=== PATIENT | female | born 1935 | race African-American/Black ===

== ENCOUNTER 2022-01-22 19:48 | Inpatient (IN) | payer MEDICARE, MEDICAID, SELFPAY ==
--- NOTE | ~2022-01-22 | CT_ITS ---
EXAMINATION: CT cervical spine wo con DATE: 01/22/2022 21:21 INDICATION: Neck pain after fall TECHNIQUE: Computed tomography (CT) of the cervical spine was performed without intravenous contrast. The dose-length product was 262 mGy-cm. Automated exposure control and iterative reconstruction tech [employer]igan[employer] were employed. COMPARISON: None FINDINGS: There is multilevel degenerative disc disease most advanced at C3-4 and C4-5. Odontoid proc ess is normal. Lateral masses are normally aligned. There is moderate uncinate hypertrophy at all cer vical spine levels. No evidence for perched facet. Craniovertebral junction is normal. Spinous proces ses are normal. There is emphysema in the upper lobes. There is an irregular shaped mass in the left upper lobe measuring 2.1 x 2.1 x 1.3 cm. Cannot exclude bronchogenic carcinoma. No significant parasp inal soft tissue abnormality. IMPRESSION: 1. No acute fracture. 2: Irregular shaped 2.1 cm left upper lobe mass, suspicious for bronchogenic carcinoma. 3: Moderate cervical spondylosis. Reviewed, dictated and finalized at location A. T INSPECTOR IMPRESSION: 1. No acute fracture. 2: Irregular shaped 2.1 cm left upper lobe mass, suspicious for bronchogenic ca rcinoma. 3: Moderate cervical spondylosis.
--- NOTE | ~2022-01-22 | XR_ITS ---
EXAMINATION: XR chest 1V portable DATE: 01/27/2022 06:18 INDICATION: Intubation TECHNIQUE: frontal view of the chest was obtained. COMPARISON: Chest radiograph dated 01/26/22 FINDINGS: Endotracheal tube tip 2.2 cm above the zaida. Nasogastric tube extends below the left hemidiaphragm with distal tip collimated off the study. Opacities in the bilateral mid and lower lung zones with prominent but with decrease in the density o f the opacities on the right. Opacities include small bilateral pleural effusions. No pneumothorax. C ardiomegaly. IMPRESSION: 1. Small bilateral pleural effusions with associated atelectasis and/or pneumonia in the bilateral mi d to lower lung zones, unchanged on the left and more prominent but with interval improvement on the right. Reviewed, dictated and finalized at location A. MANAGER IMPRESSION: 1. Small bilateral pleural effusions with associated atelectasis and/or pneumon ia in the bilateral mid to lower lung zones, unchanged on the left and more pro minent but with interval improvement on the right.
--- NOTE | ~2022-01-22 | XR_ITS ---
EXAMINATION: XR chest 1V portable INDICATION: Respiratory failure TECHNIQUE: Portable AP chest at 0535 hours COMPARISON: 01/27/2022 FINDINGS: The endotracheal tube ends approximately 1.3 cm above the zaida. The nasogastric tube is f ollowed as far as the stomach. Its tip is beyond the inferior margin of the radiograph. There are sma ll, stable pleural effusions. No pneumothorax is identified. The cardiomediastinal silhouette is stab le. There are stable bibasilar airspace opacities. IMPRESSION: 1. Small pleural effusions with stable bibasilar airspace opacities, atelectasis versus pneumonia. Reviewed, dictated and finalized at location A. ET STEAMER IMPRESSION: 1. Small pleural effusions with stable bibasilar airspace opacities, atelectasi s versus pneumonia.
--- NOTE | ~2022-01-22 | XR_ITS ---
EXAMINATION: XR chest 1V portable Exam Date/Time: 01/24/2022 15:37 WINDOW AND DOOR INSTALLER HISTORY: hypoxic Comparison: 01/22/2022. RESULT: Lines, tubes, and devices: Cholecystectomy clips. Lungs and pleura: New airspace opacities in the right upper lobe. Persistent bibasilar subsegmental opacities and mild right costophrenic angle blunting. Cardiomediastinal silhouette: Stable. Other: No acute osseous or upper abdominal finding. IMPRESSION: Worsening airspace disease in the right upper lobe, concerning for pneumonia. Bibasilar atelectasis/c onsolidation. Small right pleural effusion. Reviewed, dictated and finalized at location K. OW AND DOOR INSTALLER IMPRESSION: Worsening airspace disease in the right upper lobe, concerning for pneumonia. B ibasilar atelectasis/consolidation. Small right pleural effusion.
--- NOTE | ~2022-01-22 | XR_ITS ---
EXAMINATION: XR chest 1V portable DATE: 02/01/2022 06:36 INDICATION: Pneumonia. TECHNIQUE: A single frontal view of the chest was obtained. COMPARISON: Chest single view 01/31/2022, chest CT 01/31/2022 FINDINGS: There is a small right pleural effusion. There are patchy airspace opacities in all lung zo maddie bilaterally, worst in right mid and lower lung zones. No pneumothorax. Cardiomegaly is noted. The re are surgical clips in the abdomen. There is oral contrast in the colon. IMPRESSION: 1. Stable multifocal lung disease, consistent with pneumonia. 2. Stable small right pleural effusion. 3. Cardiomegaly. Reviewed, dictated and finalized at location A. IAL EDUCATION MATH TEACHER
--- NOTE | ~2022-01-22 | XR_ITS ---
EXAMINATION: XR chest 1V portable DATE: 01/29/2022 06:10 INDICATION: Pneumonia TECHNIQUE: frontal view of the chest was obtained. COMPARISON: Chest radiograph dated 01/28/2022 FINDINGS: Endotracheal tube tip 2.1 cm above the zaida. Nasogastric tube extends below the left hemidiaphragm with distal tip collimated off the study. Airspace opacities throughout the right mid and lower lung zones with blunting at the right costophre sully angle. Additional opacity left lower lung zone. No pneumothorax or definitive left pleural effusi on. Cardiomegaly. Cholecystectomy clips in right upper quadrant. IMPRESSION: 1. Opacities in the right mid to lower and left lower lung zones which could represent atelectasis or pneumonia. 2. Small right pleural effusion. 3. Cardiomegaly. Reviewed, dictated and finalized at location A. ABUSE COUNSELOR IMPRESSION: 1. Opacities in the right mid to lower and left lower lung zones which could re present atelectasis or pneumonia. 2. Small right pleural effusion. 3. Cardiomegaly.
--- NOTE | ~2022-01-22 | XR_ITS ---
EXAMINATION: XR chest ET placement, XR abdomen NG/feed tube insert Exam Date/Time: 01/24/2022 18:10 CHEMIST INSTRUMENTATION HISTORY: intubation Comparison: X-ray chest, same date at 3:45 PM. RESULT: Lines, tubes, and devices: New endotracheal tube terminating 2.6 cm above the zaida. New NG tube, t ip and side port project over the expected location of the stomach. Cholecystectomy clips. Lungs and pleura: Improved aeration of the right upper lung. Persistent streaky bibasilar opacities, bibasilar aeration is also improved. Diffuse reticular opacities. Persistent mild right costophrenic angle blunting. Cardiomediastinal silhouette: Stable. Other: No acute osseous or upper abdominal finding. Retained contrast in the colon. IMPRESSION: New NG tube terminating 2.6 cm above the zaida. New NG tube, in good position. Generally improved bela ng aeration, right upper lobe opacities in the prior study likely represented atelectasis. Senescent changes in the lungs with possible interstitial edema. Small right pleural effusion. Reviewed, dictated and finalized at location K. IST INSTRUMENTATION IMPRESSION: New NG tube terminating 2.6 cm above the zaida. New NG tube, in good position. Generally improved lung aeration, right upper lobe opacities in the prior stud y likely represented atelectasis. Senescent changes in the lungs with possible interstitial edema. Small right pleural effusion.
--- NOTE | ~2022-01-22 | XR_ITS ---
EXAMINATION: XR chest 1V portable DATE: 01/30/2022 06:23 INDICATION: Pneumonia TECHNIQUE: frontal view of the chest was obtained. COMPARISON: Chest radiograph dated 01/29/2022 FINDINGS: Decreasing airspace opacities in the right mid to lower and left lower lung zones. No pneumothorax or definitive pleural effusion. Cardiomegaly. Cholecystectomy clips in right upper quadrant. IMPRESSION: 1. Decreasing opacities in the right mid to lower and left lower lung zones consistent with improving atelectasis, or pneumonia, pulmonary edema or some combination thereof. 2. Cardiomegaly. Reviewed, dictated and finalized at location A. ING BUCKING SUPERVISOR IMPRESSION: 1. Decreasing opacities in the right mid to lower and left lower lung zones con sistent with improving atelectasis, or pneumonia, pulmonary edema or some combi nation thereof. 2. Cardiomegaly.
--- NOTE | ~2022-01-22 | CT_ITS ---
EXAMINATION:CT diagnostic chest wo con DATE: 01/31/2022 14:30 INDICATION: Left lung mass. TECHNIQUE: Computed tomography (CT) of the chest was performed without intravenous contrast. Automate d exposure control and iterative reconstruction technique were employed. The dose-length product (DLP ) was 371.42 mGy-cm. COMPARISON: CT cervical spine 01/22/2022 FINDINGS: There is mild emphysema. There are small pleural effusions, right worse than left. There is dependent atelectasis bilaterally. There are patchy airspace and groundglass opacities in the upper lobes. There is an 11 mm nodule in left lower lobe. Cardiomegaly is noted. There are coronary artery calcifications. No pericardial effusion. There are changes of cholecystectomy. Calcifications in the spleen are consistent with old granulomatous disease. There is lumbar levoscoliosis and severe spondy losis. There is a segmentation anomaly in mid thoracic spine. IMPRESSION: 1. Patchy airspace and groundglass opacities in the upper lobes, likely pneumonia. 2. 11 mm nodule in left lung lower lobe, which may be infection or malignancy. Consider noncontrast c hest CT in 3 months. 3. Small pleural effusions, right worse than left. 4. Mild emphysema. Reviewed, dictated and finalized at location A. CULTURIST IMPRESSION: 1. Patchy airspace and groundglass opacities in the upper lobes, likely pneumon ia. 2. 11 mm nodule in left lung lower lobe, which may be infection or malignancy. Consider noncontrast chest CT in 3 months. 3. Small pleural effusions, right worse than left. 4. Mild emphysema.
--- NOTE | ~2022-01-22 | US_ITS ---
US renal BI 01/25/2022 13:29 Procedure: Realtime transabdominal ultrasound of the kidneys and bladder. Indication: Elevated creatinine Comparison: No prior studies for comparison. Findings: Study is extremely limited by patient immobility and body habitus. The left kidney is not v isualized. There is a 1.8 cm right renal cyst. No solid masses, hydronephrosis or stones. Right kidne y measures 9.4 cm in length. There is a [place] catheter in the bladder. Impression: 1: Limited study. Right renal cyst measuring 1.8 cm. Reviewed, dictated and finalized at location A. ENT SERVICES DEAN Impression: 1: Limited study. Right renal cyst measuring 1.8 cm.
--- NOTE | ~2022-01-22 | XR_ITS ---
MODIFIED ESOPHAGRAM HISTORY: Aspiration pneumonia. Failed bedside swallow study. TECHNIQUE: Modified barium esophagram was performed on 01/30/2022. I administered fluoroscopy and per formed the exam with speech pathologist. Patient was seated for lateral fluoroscopic imaging for ing estion of thin liquids, pudding, solids and quantified amounts, followed by thin liquids in uncontrol led amounts. This was recorded on tape. A single fluoroscopic spot image was also recorded. The DAP f or this procedure was 6.029 Gycm2. The amount of fluoroscopy time used during this procedure was 5.8 minutes. FINDINGS: Oral stage: Adequate function. Pharyngeal stage: Reduced laryngeal elevation and adduction, reduced tongue base retraction and phary ngeal squeeze. There is vallecular residue with laryngeal penetration without aspiration with thin an d mildly thickened liquids. Cervical/esophageal stage: Adequate function. IMPRESSION: Pharyngeal dysphagia with laryngeal penetration without aspiration. Please correlate wit h speech pathologist findings and specific feeding recommendations. Reviewed, dictated and finalized at location A. ET CUTTER IMPRESSION: Pharyngeal dysphagia with laryngeal penetration without aspiration. Please correlate with speech pathologist findings and specific feeding recomm endations.
--- NOTE | ~2022-01-22 | US_ITS ---
EXAMINATION:US venous doppler LE BI INDICATION:Leg swelling TECHNIQUE: Multiple grayscale, color flow and Doppler images of the right and left lower extremity de ep venous systems were obtained and reviewed. COMPARISON:No prior studies for comparison. FINDINGS: The common femoral, superficial femoral and popliteal veins demonstrate normal respiratory variation, augmentation and compressibility. Color flow is also seen within the posterior tibial, pe roneal, greater saphenous and profunda veins. IMPRESSION: 1: No lower extremity deep venous thrombosis. Reviewed, dictated and finalized at location A. DATA PLATFORM ARCHITECT
--- NOTE | ~2022-01-22 | CT_ITS ---
EXAMINATION: CT brain wo con DATE: 01/22/2022 21:21 INDICATION: Status post fall. Head injury. TECHNIQUE: Computed tomography (CT) of the head was performed without intravenous contrast. The dose- length product was 681.00 mGy-cm. Automated exposure control and iterative reconstruction technique w ere employed. COMPARISON: None FINDINGS: Generalized atrophy. There are scattered moderate periventricular and subcortical white mat ter changes, most likely related to small vessel ischemic disease (microangiopathy). There is left po sterior parietal scalp hematoma. No acute intracranial hemorrhage, infarction, mass or mass effect. T here is intracranial atherosclerosis. There is mucosal thickening of the right maxillary sinus. There are changes of lens replacement surgery bilaterally. Small left mastoid effusion. No depressed skull fractures. IMPRESSION: 1. No acute intracranial abnormality. 2: Chronic age-related findings. Reviewed, dictated and finalized at location A. GATOR OVERHEAD
--- NOTE | ~2022-01-22 | XR_ITS ---
EXAMINATION: XR chest 1V portable DATE: 01/31/2022 06:33 INDICATION: Pneumonia. TECHNIQUE: A single frontal view of the chest was obtained. COMPARISON: Chest single view 01/30/2022 FINDINGS: There is a diffuse interstitial pattern in the lungs, consistent mild pulmonary edema. No p leural effusion or pneumothorax. Cardiomegaly is noted. Surgical clips in the right upper quadrant ar e likely from cholecystectomy. IMPRESSION: 1. Mild pulmonary edema. 2. Cardiomegaly. Reviewed, dictated and finalized at location A. LIANCE CONSULTANT
--- NOTE | ~2022-01-22 | XR_ITS ---
EXAMINATION: XR chest 1V portable INDICATION: Respiratory failure TECHNIQUE: Portable AP chest at 0520 hours COMPARISON: 01/25/2022 FINDINGS: The endotracheal tube ends approximately 2.7 cm above the zaida. The nasogastric tube is f ollowed as far as the stomach. Its tip is beyond the inferior margin of the radiograph. Cardiomegaly is noted. There are small pleural effusions. Diffuse lung disease persists with worsening opacities o f the right mid and lower lung zones. IMPRESSION: 1. Diffuse lung disease with worsening opacities of the right mid and lower lung zones, consistent wi th pneumonia and/or pulmonary edema. 2. Cardiomegaly. 3. Small pleural effusions. Reviewed, dictated and finalized at location A. ERATURE REGULATOR IMPRESSION: 1. Diffuse lung disease with worsening opacities of the right mid and lower philippe g zones, consistent with pneumonia and/or pulmonary edema. 2. Cardiomegaly. 3. Small pleural effusions.
--- NOTE | ~2022-01-22 | XR_ITS ---
XR pelvis 1-2V 01/22/2022 21:40 Indication: Status post fall. Pelvic pain. Procedure: AP pelvis Comparison: No prior studies for comparison. Findings: Pelvic rings are intact. There is osteoarthritis of the hips. Extensive atherosclerosis of the pelvis. No acute fracture or traumatic malalignment. Impression: 1: No acute fracture. Reviewed, dictated and finalized at location A. LEMENTAL MANAGER Impression: 1: No acute fracture.
--- NOTE | ~2022-01-22 | XR_ITS ---
XR chest 1V 01/22/2022 21:40 Indication: Status post fall. Chest pain. Procedure: AP view of the chest Comparison: No prior studies for comparison. Findings: Right basilar airspace disease. Cardiomegaly. There is atherosclerosis of the aorta. Small right pleural effusion. No pneumothorax. No acute osseous abnormality identified. There is scoliosis. Impression: 1: Right basilar airspace disease suspicious for pneumonia. 2: Small right pleural effusion. Reviewed, dictated and finalized at location A. ER CRUSHER OPERATOR Impression: 1: Right basilar airspace disease suspicious for pneumonia. 2: Small right pleural effusion.
--- NOTE | ~2022-01-22 | XR_ITS ---
XR chest 1V portable DATE: 01/25/2022 08:12 INDICATION: Acute respiratory failure, pneumonia TECHNIQUE: Portable AP view on 01/25/2022 at 0808 hours COMPARISON: 01/2022 portable AP chest at 1822 hours FINDINGS: ET tube in satisfactory position 2.3 cm above zaida. NG tube in stomach. No central lines. Cardiomegaly. Aortic arch calcification. Mild pulmonary vascular congestion, prominence of minor fissure consistent with subpleural edema and bilateral relatively central and lower lung zone infiltrates which may be due to pulmonary edema, pne umonia and/or aspiration pneumonitis. Diffuse osteopenia. IMPRESSION: Cardiomegaly, congestive changes, bilateral infiltrates, relatively stable since 01/2022 Reviewed, dictated and finalized at location B. CTOR EMPLOYMENT
[2022-01-22 19:49] VITALS: BP 138/62; PULSE 83; RESP 14; TEMP 36.5; O2SAT 93
--- NOTE | 2022-01-22 20:58 | ED.FALL ---
HPI - Fall General Chief Complaint: Fall <Ashwini Escobar PA-C - Last Filed: 01/24/22 17:09> Stated Complaint: fall <Ashwini Escobar PA-C - Last Filed: 01/24/22 17:09> Time Seen by Provider: 01/22/22 20:44 <Ashwini Escobar PA-C - Last Filed: 01/24/22 17:09> Source: patient and family <ABNER Brown Last Filed: 01/24/22 17:09> Mode of arrival: wheelchair <ABNER Brown Last Filed: 01/24/22 17:09> Limitations: dementia <Ashwini Escobar PA-C - Last Filed: 01/24/22 17:09> History of Present Illness HPI Narrative: This is an 86-year-old female that presents to the emergency department after a ground-level fall today with head injury. Patient lives at a memory care facility. Her daughter reports she fell around 3:45 this afternoon. Reportedly she had fallen in the bathroom and pulled her call light. The patient reports that she slipped. She did hit her head. She denied losing consciousness. She reports mild pain in the area of contusion to her head. She otherwise has no focal complaints. Her daughter reports she is at her baseline neurologically. Her daughter brought her in for evaluation due to her hitting her head. Patient denies vision changes, vomiting, chest pain, shortness of breath, abdominal pain, or focal numbness or weakness. <Ashwini Escobar PA-C - Last Filed: 01/24/22 17:09> Related Data Home Medications: Home Medications Medication Instructions Recorded Confirmed budesonide-formoterol HFA 160 2 puff inhalation BID 01/22/22 01/24/22 mcg-4.5 mcg/actuation aerosol inhaler (Symbicort) cholecalciferol (vitamin D3) 25 25 mcg PO DAILY 01/22/22 01/24/22 mcg (1,000 unit) tablet dextromethorphan-guaifenesin 30 1 tablet PO Q12H PRN Cough 01/22/22 01/24/22 mg-600 mg tablet extended [id number] hr (Mucinex DM) furosemide 20 mg tablet 20 mg PO DAILY 01/22/22 01/24/22 hydralazine 25 mg tablet 75 mg PO TID 01/22/22 01/24/22 insulin detemir U-100 100 unit/mL 5 unit subcut HS 01/22/22 01/24/22 (3 mL) subcutaneous pen (Levemir FlexTouch U-100 Insulin) ipratropium 0.5 mg-albuterol 3 mg 3 ml inhalation QID PRN shortness 01/22/22 01/24/22 (2.5 mg base)/3 mL nebulization of breath soln ondansetron 4 mg disintegrating 4 mg PO Q8H PRN Nausea 01/22/22 01/24/22 tablet pantoprazole 40 mg tablet,delayed 40 mg PO DAILY 01/22/22 01/24/22 release polyethylene glycol 3350 17 17 g PO DAILY 01/22/22 01/24/22 gram/dose oral powder potassium chloride 20 mEq 20 meq PO DAILY 01/22/22 01/24/22 tablet,extended release(part/cryst) <Ashwini Ecsobar PA-C - Last Filed: 01/24/22 17:09> Allergies/Adverse Reactions: Allergies Allergy/AdvReac Type Severity Reaction Status Date / Time No Known Allergies Allergy Verified 01/23/22 14:58 <Ashwini Escobar PA-C - Last Filed: 01/24/22 17:09> Review of Systems Review of Systems: CONSTITUTIONAL: Denies fever EYES: Denies visual changes CARDIOVASCULAR: Denies chest pain RESPIRATORY: Denies dyspnea. GASTROINTESTINAL: Denies abdominal pain, nausea, vomiting MUSCULOSKELETAL: Denies back pain, joint pain, or myalgia. NEUROLOGIC: Reports headache. Denies numbness, or weakness. <Ashwini Escobar PA-C - Last Filed: 01/24/22 17:09> All systems reviewed & are unremarkable except as noted in HPI and below <Ashwini Escobar PA-C - Last Filed: 01/24/22 17:09> [facility] Past Medical History Medical History: Medical History (Updated 01/24/22 @ 15:40 by Ally Jordan NP) Chronic GERD DM2 (diabetes mellitus, type 2) History of diabetes mellitus History of hypertension Hypertension <Ashwini Escobar PA-C - Last Filed: 01/24/22 17:09> Family History Family History: Family History (Updated 01/24/22 @ 15:11 by Ally Jordan NP) Unknown Family history unknown <Ashwini Escobar PA-C - Last Filed: 01/24/22 17:09> Social History Social History: Social History (Updated 12
[2022-01-22 22:17] LABS: Basophils Percent Auto 0.4 % (0.2-1.2); Eosinophils Absolute Auto 0.1 K/mm3 (0-0.3); Eosinophils Percent Auto 1.5 % (0-4.4); Hematocrit 21.9 % (37.0-47.0); Immature Granulocyte Absolute 0.03 K/mm3 (0.00-0.031); Immature Granulocyte Percent A 0.6 % (0-0.5); Lymphocytes Absolute Auto 0.56 K/mm3 (0.9-3.2); Lymphocytes Percent Auto 11.8 % (18.3-44.2); Mean Corpuscular HGB Conc 31.5 g/dl (32-36); Mean Corpuscular Hemoglobin 23.2 pg (26-34); Mean Corpuscular Volume 73.5 fl (80-100); Mean Platelet Volume 10.7 fl (7.4-10.4); Monocytes Absolute Auto 0.3 K/mm3 (0.1-0.6); Monocytes Percent Auto 5.7 % (2.6-8.5); Neutrophils Absolute Auto 3.8 K/mm3 (1.3-6.7); Platelet Count Result 199 k/mm3 (150-375); Red Blood Count 2.98 M/mm3 (4.2-5.4); Red Cell Distribution Width 17.4 % (11.5-14.5); White Blood Count 4.8 K/mm3 (4.5-10.0)
[2022-01-22 22:27] LABS: Anion Gap 7 mmol/L (8-16); Blood Urea Nitrogen 40 mg/dL (7-17); Calcium 8.2 mg/dL (8.4-10.2); Carbon Dioxide 25 mmol/L (22-30); Chloride 111 mmol/L (98-107); Estimated CRCL calculation 15 ml/min; Estimated Glomerular Filt Rate 22; Glucose 177 mg/dL (65-110); Potassium 5.5 mmol/L (3.4-5.0); Sodium 143 mmol/L (137-145)
[2022-01-22 22:38] LABS: Hemoglobin 6.9 g/dL (12.0-15.0); Microcytosis 2+ (NORMAL); Platelet Estimate Adequate (Adequate)
[2022-01-22 22:39] LABS: Hypochromasia 2+ (NORMAL)
[2022-01-22 23:01] LABS: Alanine Aminotransferase 25 U/L (6-35); Alkaline Phosphatase 120 U/L (38-126); Aspartate Amino Transferase 43 U/L (14-36); Bilirubin,Total 0.2 mg/dL (0.2-1.3)
[2022-01-22 23:08] LABS: Prothrombin Time 13.2 Seconds (11.1-14.7)
[2022-01-22 23:09] LABS: Partial Thromboplastin Time 36.4 SECONDS (22.3-36.8)
[2022-01-22 23:10] LABS: NT Pro B Type Natriuretic Pept 3290 pg/mL (5-100)
[2022-01-23] VITALS (49 sets, daily range): BP systolic 115–160; BP diastolic 49–98; PULSE 56–87; RESP 13–23; TEMP 36.2–36.4; O2SAT 96–100
[2022-01-23 00:33] LABS: Influenza A QL RT-PCR Negative (Negative); Influenza B QL RT-PCR Negative (Negative); SARS-CoV-2 RNA PCR Negative
--- NOTE | 2022-01-23 00:47 | ECG_ITS ---
Measurements Intervals [place] Rate: 68 P: 69 AR: 305 QRS: -25 QRSD: 110 T: 32 QT: 419 QTc: 448 Interpretive Statements SINUS RHYTHM WITH FIRST DEGREE AV BLOCK BASELINE ARTIFACT ANTEROSEPTAL MYOCARDIAL INFARCTION , OF INDETERMINATE AGE ABNORMAL ECG NO PREVIOUS ECG AVAILABLE FOR COMPARISON Electronically Signed On 01-23-2022 14:04:47 GEOCHEMISTRY TEACHER by Christopher Christianson M.D.
[2022-01-23 02:10] LABS: Appearance Urine Clear (Clear); Bilirubin Urine Negative (Negative); Blood Urine Negative (Negative); Color Urine Yellow (Yellow); Glucose Urine UA Negative (Negative); Ketones Urine Negative (Negative); Leukocyte Esterase Ur Negative LEU/UL (Negative); Nitrate Urine Negative (Negative); Protein Urine 2+ mg/dL (Negative); Specific Grav Ur 1.015 (1.001-1.035); Urobilinogen Urine 0.2 mg/dL (<2.0)
[2022-01-23 02:16] LABS: RBC Urine 0-2 /hpf (0-2); Squamous Epithelial Cell Urine Rare /hpf (Few); WBC Urine 0-3 /hpf
[2022-01-23 02:26] LABS: Add Urine Microscopic? YES
--- NOTE | 2022-01-23 03:33 | PC.NURSE ---
Report given to Ne Zhao RN.
[2022-01-23] MEDS: SODIUM CHLORIDE 0.9% IV 250 ML 30 ML IV CONT (03:35)
[2022-01-23] MEDS: TUBING, BLOOD SET 1 EACH XX (03:35)
--- NOTE | 2022-01-23 06:08 | PC.NURSE ---
Holding second unit blood per Dr. muhammad. Awaiting repeat H&H and BNP levels.
[2022-01-23 06:13] LABS: Hematocrit 25.7 % (37.0-47.0); Hemoglobin 8.1 g/dL (12.0-15.0)
--- NOTE | 2022-01-23 06:23 | PC.NURSE ---
Per EDP Dr. Casas, canceling the second unit of blood.
[2022-01-23 07:02] LABS: Anion Gap 6 mmol/L (8-16); Blood Urea Nitrogen 39 mg/dL (7-17); Calcium 8.2 mg/dL (8.4-10.2); Carbon Dioxide 26 mmol/L (22-30); Chloride 107 mmol/L (98-107); Estimated CRCL calculation 17 ml/min; Estimated Glomerular Filt Rate 24; Glucose 97 mg/dL (65-110); Potassium 5.5 mmol/L (3.4-5.0); Sodium 139 mmol/L (137-145)
--- NOTE | 2022-01-23 07:45 | PC.NURSE ---
Pt pulled IV out.
[2022-01-23 12:18] LABS: Hematocrit 25.9 % (37.0-47.0); Hemoglobin 7.9 g/dL (12.0-15.0)
[2022-01-23] MEDS: SODIUM CHLORIDE 0.9% IV 250 ML (13:17)
[2022-01-23] MEDS: hydrALAZINE HCL 25 MG TABLET PO (18:47)
[2022-01-23] MEDS: FUROSEMIDE 20 MG TABLET PO (18:47)
[2022-01-23] MEDS: PANTOPRAZOLE SODIUM IV 40 MG VIAL IV PUSH (18:47)
[2022-01-23 18:57] LABS: Glucose Point of Care 77 mg/dl (65-105)
[2022-01-23 19:49] LABS: Hematocrit 31.5 % (37.0-47.0); Hemoglobin 9.8 g/dL (12.0-15.0)
[2022-01-23] MEDS: FLUTICASONE/SALMETEROL 115-21 MCG INHALER 1 PUFF 2 PUFF INHALATION (21:10)
[2022-01-23] MEDS: SODIUM CHLORIDE 0.9% IV 1,000 ML 75 ML IV CONT (23:50)
[2022-01-24] VITALS (15 sets, daily range): BP systolic 113–158; BP diastolic 52–77; PULSE 49–80; RESP 12–24; TEMP 34.2–36.7; O2SAT 44–100
[2022-01-24 00:02] LABS: Glucose Point of Care 140 mg/dl (65-105)
[2022-01-24 02:10] LABS: Hematocrit 31.3 % (37.0-47.0)
[2022-01-24 02:26] LABS: Anion Gap 8 mmol/L (8-16); Blood Urea Nitrogen 38 mg/dL (7-17); Calcium 8.4 mg/dL (8.4-10.2); Carbon Dioxide 25 mmol/L (22-30); Chloride 109 mmol/L (98-107); Estimated CRCL calculation 17 ml/min; Estimated Glomerular Filt Rate 24; Glucose 116 mg/dL (65-110); Potassium 5.5 mmol/L (3.4-5.0); Sodium 142 mmol/L (137-145)
[2022-01-24] MEDS: SODIUM ZIRCONIUM CYCLOSILICATE 10 GM POWD.PACK PO (05:10)
[2022-01-24] MEDS: LORazepam INJ (*CRX) 2 MG/ML VIAL 1 MG IV PUSH (07:56)
--- NOTE | 2022-01-24 08:08 | PC.NURSE ---
Pt very agitated at this time, refuses VS, refuses blood to be draw, said you do not touch me and leave me alone Pt yelling, trying to hit and bite staff. Dr. Cortez made aware, 1mg of Ativan given.
[2022-01-24] MEDS: PANTOPRAZOLE SODIUM IV 40 MG VIAL IV PUSH (10:01)
[2022-01-24 10:03] LABS: Hematocrit 31.5 % (37.0-47.0); Hemoglobin 10.1 g/dL (12.0-15.0)
--- NOTE | 2022-01-24 11:39 | ADMGEN ---
This patient, Nestor Cahcon, was admitted to [facility] Surg Room 325-02. Patient/family oriented to hospital policies and general routines including ID bracelet, bed and alarms, visiting hours, pain management, procedures, bathroom and other care routines, personal items, smoking policy, room service/diet, and visiting hours. Information on how to activate the Rapid Response Team has been discussed. Patient/Family are encouraged to report perceived risks to care and to ask questions if they do not understand what they are told or what they should do.
[2022-01-24 12:10] LABS: Glucose Point of Care 113 mg/dl (65-105)
--- NOTE | 2022-01-24 12:34 | PM.IMHP ---
H&P: HPI History of Present Illness Date/Time: 01/24/22 12:34 Chief Complaint: Fall Narrative: This is a 86-year-old female patient who resides at [facility]. The patient has dementia and was brought to the emergency room on 01/22/2022 with complaint of a ground level fall on that day and head injury. The patient resides in a memory care unit inside of [facility]. The patient fell around 345 that afternoon that she was brought to the emergency room. The patient had fallen in the bathroom pulled her call light. She denied losing any consciousness but did hit her head. She did sustain a contusion on her head. The patient was found to be Hemoccult positive but there was no GI on-call the ER doctor attempted to transfer the patient to [facility], [facility] and [facility]. Patient's initial hemoglobin was 6.9 and today is 10.1. Head CT was read as no acute intracranial abnormality. Chronic age-related findings. Cervical spine CT was read as no acute fracture. 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 Moderate cervical spondylosis. Chest x-ray read as right basilar airspace disease suspicious for pneumonia. Small right pleural effusion. The patient was started on azithromycin Rocephin for community-acquired pneumonia. The patient is being admitted to inpatient status on the date of service of 01/24/2022. Review of Systems Review of Systems: See HPI All systems reviewed & are unremarkable except as noted in HPI and below Constitutional: Constitutional: Reports as per HPI and Reports no additional constitutional complaints Eyes: Eyes: Reports as per HPI and Reports no additional eye complaints ENT: Reports system reviewed and no additional complaints, except as documented and Reports Normal hearing present Cardiovascular: Cardiovascular: Reports no additional cardiovascular complaints Respiratory: Respiratory: Reports no additional respiratory complaints and Reports no additional respiratory complaints Gastrointestinal: Gastrointestinal: Reports as per HPI and Reports no additional gastrointestinal complaints Musculoskeletal: Musculoskeletal: Reports no additional musculoskeletal complaints Integumentary/Breasts: Skin/Breast: Reports system reviewed and no additional complaints, except as docu and Reports as per HPI Neurologic: Reports system reviewed and no additional complaints, except as documented, Reports as per HPI and Reports Normal hearing present Psychiatric: Psychiatric: Reports no additional psychiatric complaints and Reports as per HPI Endocrine: Endocrine: Reports no additional endocrine complaints Hematologic/Lymphatic: Hematologic/Lymphatic: Reports no additional hematologic/lymphatic complaints Allergic/Immunologic: Allergic/Immunologic: Reports no additional allergic/immunologic complaints [facility] Past Medical History Medical History (Updated 01/24/22 @ 15:40 by Ally Jordan NP) Chronic GERD DM2 (diabetes mellitus, type 2) History of diabetes mellitus History of hypertension Hypertension Family History Family History (Updated 01/24/22 @ 15:11 by Ally Jordan NP) Unknown Family history unknown Social History Social History (Updated 01/24/22 @ 15:20 by Ally Jordan NP) Social History: The patient is from [facility]. She tells me that she has 2 children and that she is . She has a granddaughter that is listed as a person to notify. Her senior living records shows that she is a full code. Code status full code Smoking status: Unknown if ever smoked Alcohol intake: unknown Substance use: unknown Spiritual care concerns: No Meds Home Medications and Allergies Home Medications Medication Instructions Recorded Confirmed Type budesonide-formoterol HFA 160 2 puff inhalation BID 01/22/22 01/24/22 History mcg-4.5 mcg/actuation aerosol inhaler (Symbicort) cholecalciferol (sarath
[2022-01-24] MEDS: SODIUM CHLORIDE 0.9% IV 1,000 ML 75 ML IV CONT (13:03)
[2022-01-24] MEDS: ONDANSETRON INJ 4 MG/2 ML VIAL IV PUSH (13:03)
[2022-01-24 14:49] LABS: Alveolar/Arterial O2 Gradient 25.7 mmHg; Base Excess ABG -3.8 mEq/l (+/-2.0); Fractional Inspired Oxygen 24 %; HCO3 ABG 26.5 mEq/l (22.0-26.0); Oxygen Content ABG 12.5 %vol (16.0-22.0); PO2 ABG 50.8 mmHg (80.0-100.0); PO2 FiO2 Ratio Arterial Blood 2.12 %; Total Hemoglobin 11.5 g/dL (12.0-18.0)
[2022-01-24 15:08] LABS: pH ABG 7.141 (7.350-7.450)
[2022-01-24 15:09] LABS: PCO2 ABG 79.5 mmHg (35.0-45.0)
[2022-01-24 15:10] LABS: Oxygen Saturation ABG 73.1 % (95.0-100.0)
[2022-01-24 15:11] LABS: Oxyhemoglobin 77.3 % THb (90.0-100.0)
[2022-01-24 15:57] LABS: Hematocrit 30.5 % (37.0-47.0); Hemoglobin 9.5 g/dL (12.0-15.0)
[2022-01-24 16:07] LABS: Hemoglobin A1C 7.2 % (<5.7)
[2022-01-24] MEDS: FUROSEMIDE INJ 40 MG/4 ML VIAL IV PUSH (16:41)
[2022-01-24 16:57] LABS: Alveolar/Arterial O2 Gradient 51.3 mmHg; Base Excess ABG -3.7 mEq/l (+/-2.0); Fractional Inspired Oxygen 30 %; HCO3 ABG 26.2 mEq/l (22.0-26.0); Oxygen Content ABG 13.2 %vol (16.0-22.0); Oxygen Saturation ABG 88.6 % (95.0-100.0); Oxyhemoglobin 89.8 % THb (90.0-100.0); PO2 ABG 71.8 mmHg (80.0-100.0); PO2 FiO2 Ratio Arterial Blood 2.39 %; Total Hemoglobin 10.4 g/dL (12.0-18.0)
[2022-01-24 17:01] LABS: Device BIPAP; Modified Allen's Test Pass; PCO2 ABG 77.3 mmHg (35.0-45.0); Site Drawn LEFT RADIAL; pH ABG 7.148 (7.350-7.450)
[2022-01-24 17:45] LABS: Anion Gap 7 mmol/L (8-16); Blood Urea Nitrogen 36 mg/dL (7-17); Carbon Dioxide 22 mmol/L (22-30); Chloride 107 mmol/L (98-107); Estimated CRCL calculation 17 ml/min; Estimated Glomerular Filt Rate 26; Glucose 109 mg/dL (65-110); Potassium 5.3 mmol/L (3.4-5.0); Sodium 136 mmol/L (137-145)
--- NOTE | 2022-01-24 17:50 | PC.NURSE ---
This patient, Nestor Chacon, was transferred to ICU-6 on 01/24/22 at 1750. Personal belongings sent with patient. Report given to Elena VICKERS. Appropriate documentation sent with patient.
[2022-01-24] MEDS: ROCURONIUM BROMIDE 50 MG/5 ML VIAL 40 MG IV PUSH (18:06)
[2022-01-24] MEDS: ETOMIDATE 20 MG/10 ML AMPUL IV PUSH (18:06)
--- NOTE | 2022-01-24 18:24 | WPDPROCEDUR ---
Procedures Intubation Intubation Date: 01/24/22 Intubation Time: 18:07 A pre-procedural Time-Out was completed immediately before starting the procedure and confirmed: Patient Identification, Site, Procedure, Patient Position and the Availability of Requisite Equipment: Yes Sedative: etomidate Mg given: 20 Paralytic: rocuronium Mg given: 40 Laryngoscope: fiber optic video scope ET tube size: 7.5 Tube secured depth (cm): 23 Tube secured location: lips Tube placement confirmation: visualized tube passing through cords and equal breath sounds bilaterally Patient tolerated procedure: well Intubation complications: none Additional comments: ? New endotracheal tube terminating 2.6 cm above the zaida
[2022-01-24] MEDS: FENTANYL 2,500MCG/NS250ML(*CRX 2,500 MCG/250 ML BAG IV CONT (18:28)
[2022-01-24] MEDS: MIDAZOLAM 100MG/NS 100ML(*CRX) 100 MG/100 ML BAG IV CONT (18:28)
[2022-01-24 18:38] LABS: Glucose Point of Care 119 mg/dl (65-105)
[2022-01-24] MEDS: IPRATROPIUM BR 0.02% INH SOLN 0.5 MG/2.5 ML VIAL INHALATION (19:40)
[2022-01-24] MEDS: ALBUTEROL SULFATE NEB 2.5 MG/3 ML INH INHALATION (19:41)
--- NOTE | 2022-01-24 19:41 | P.PCNBED_ITS ---
Procedures Central Line Placement Right Femoral: Central Line Date: 01/24/22 Central Line Time: 19:00 Discussed w/ the patient/family/POA,the placement of a central venous catheter, including its clinical necessity/indication & associated potential risks, benifits and alternatives.: Yes The patient/family/POA understand(s) and acknowledge(s) the need to proceed with central venous catheter insertion as an important element of the patient's clinical management.: Yes Consent: I have discussed with the patient and/or surrogate, the non-emergent placement of a central venous catheter, including its clinical necessity/indication and associated potential risks and complications. The patient and/or surrogate understand(s) and acknowledge(s) the need to proceed with central venous catheter insertion as an important element of the patient's clinical management. Time Out Performed: Yes Patient Position: supine Patient placed on monitor/pulse ox: Yes Provider Prep: Max. sterile barrier precautions Central line prep: 2% Chlorhexidine scrub Local anesthesia used: lidocaine 1% Amount of anesthesia used (ml): 5 Sterile US Technique with sterile gel/sterile probe covers: Yes Central line lumen inserted: triple German: 7 Length (cm): 16 Depth of Insertion (cm): 16 Post Procedure: sutured in place, good blood return, all ports aspirated, flushed, capped, transparent dressing and antimicrobial product Post procedure x-ray: other (No x-ray needed) Patient tolerated procedure: well Complications: none Additional comments: No x-ray needed
[2022-01-24 20:08] LABS: Alveolar/Arterial O2 Gradient 147.4 mmHg; Base Excess ABG -1.9 mEq/l (+/-2.0); Fractional Inspired Oxygen 45 %; HCO3 ABG 24.5 mEq/l (22.0-26.0); Oxygen Saturation ABG 97.9 % (95.0-100.0); Oxyhemoglobin 96.8 % THb (90.0-100.0); PCO2 ABG 49.3 mmHg (35.0-45.0); PO2 ABG 117.4 mmHg (80.0-100.0); PO2 FiO2 Ratio Arterial Blood 2.61 %; Total Hemoglobin 10.1 g/dL (12.0-18.0); pH ABG 7.314 (7.350-7.450)
[2022-01-24 20:10] LABS: Device VENTILATOR; Modified Allen's Test Unable to perform; Site Drawn LEFT RADIAL
[2022-01-24 20:11] LABS: Arterial Blood Gas PEEP 5 cmH2O; Arterial Blood Gas Tidal Volume 350 ml; Arterial Blood Gas Vent Mode CMV; Arterial Blood Gas Ventilator rate 20 /MIN
[2022-01-24] MEDS: MINERAL OIL/WHITE PETROLATUM OINTMENT 1 APPLIC EACH EYE (21:42)
[2022-01-24] MEDS: CENTRAL LINE FLUSH 10 ML IV PUSH (21:43)
[2022-01-24 21:56] LABS: Hematocrit 26.5 % (37.0-47.0); Hemoglobin 8.5 g/dL (12.0-15.0)
[2022-01-25] VITALS (26 sets, daily range): BP systolic 104–132; BP diastolic 43–65; PULSE 50–75; RESP 20–22; TEMP 34.6–36.7; O2SAT 98–100; BMI 29.7
--- NOTE | 2022-01-25 00:15 | PC.NURSE ---
01/24/20222054 Temp bray connected to monitoring equipment. Patient core temp noted to be 92.9. Warming blanket applied.
[2022-01-25 01:06] LABS: Glucose Point of Care 122 mg/dl (65-105)
[2022-01-25] MEDS: IPRATROPIUM BR 0.02% INH SOLN 0.5 MG/2.5 ML VIAL INHALATION ×4 (02:25→20:28)
[2022-01-25] MEDS: ALBUTEROL SULFATE NEB 2.5 MG/3 ML INH INHALATION (02:25)
[2022-01-25] MEDS: SODIUM CHLORIDE 0.9% IV 1,000 ML 75 ML IV CONT ×2 (02:58→12:50)
[2022-01-25 05:06] LABS: Alveolar/Arterial O2 Gradient 152.5 mmHg; Base Excess ABG 0.4 mEq/l (+/-2.0); Carboxyhemoglobin 0.3 % THb (0-2.0); Fractional Inspired Oxygen 45 %; HCO3 ABG 27.7 mEq/l (22.0-26.0); Methemoglobin ABG 0.3 %THb (0-1.5); Oxygen Content ABG 17.8 %vol (16.0-22.0); Oxygen Saturation ABG 97.2 % (95.0-100.0); Oxyhemoglobin 96.1 % THb (90.0-100.0); PCO2 ABG 56.5 mmHg (35.0-45.0); PO2 ABG 104.1 mmHg (80.0-100.0); PO2 FiO2 Ratio Arterial Blood 2.31 %; Reduced Hemoglobin 3.3 %THb (0-5.0); Total Hemoglobin 13.1 g/dL (12.0-18.0); pH ABG 7.308 (7.350-7.450)
[2022-01-25 05:07] LABS: Device VENTILATOR; Modified Allen's Test Unable to perform; Site Drawn LEFT RADIAL
[2022-01-25 05:08] LABS: Arterial Blood Gas PEEP 5 cmH2O; Arterial Blood Gas Tidal Volume 350 ml; Arterial Blood Gas Vent Mode CMV; Arterial Blood Gas Ventilator rate 20 /MIN
[2022-01-25 05:23] LABS: Basophils Percent Auto 0.4 % (0.2-1.2); Eosinophils Absolute Auto 0.1 K/mm3 (0-0.3); Eosinophils Percent Auto 1.7 % (0-4.4); Hematocrit 26.3 % (37.0-47.0); Hemoglobin 8.5 g/dL (12.0-15.0); Immature Granulocyte Absolute 0.02 K/mm3 (0.00-0.031); Immature Granulocyte Percent A 0.4 % (0-0.5); Lymphocytes Absolute Auto 0.53 K/mm3 (0.9-3.2); Lymphocytes Percent Auto 11.3 % (18.3-44.2); Mean Corpuscular HGB Conc 32.3 g/dl (32-36); Mean Corpuscular Hemoglobin 25.1 pg (26-34); Mean Corpuscular Volume 77.6 fl (80-100); Mean Platelet Volume 9.7 fl (7.4-10.4); Monocytes Absolute Auto 0.4 K/mm3 (0.1-0.6); Monocytes Percent Auto 9.3 % (2.6-8.5); Neutrophils Absolute Auto 3.6 K/mm3 (1.3-6.7); Neutrophils Percent Auto 76.9 % (45.5-73.1); Platelet Count Result 149 k/mm3 (150-375); Red Blood Count 3.39 M/mm3 (4.2-5.4); Red Cell Distribution Width 20.7 % (11.5-14.5); White Blood Count 4.7 K/mm3 (4.5-10.0)
[2022-01-25 05:40] LABS: Alanine Aminotransferase 29 U/L (6-35); Albumin Level 3.1 g/dL (3.5-5.1); Alkaline Phosphatase 107 U/L (38-126); Anion Gap 4 mmol/L (8-16); Aspartate Amino Transferase 51 U/L (14-36); Bilirubin,Total 0.5 mg/dL (0.2-1.3); Blood Urea Nitrogen 35 mg/dL (7-17); Calcium 7.7 mg/dL (8.4-10.2); Carbon Dioxide 27 mmol/L (22-30); Chloride 109 mmol/L (98-107); Estimated CRCL calculation 15 ml/min; Estimated Glomerular Filt Rate 22; Glucose 92 mg/dL (65-110); Lactate Dehydrogenase 250 U/L (120-246); Magnesium 1.9 mg/dL (1.6-2.3); Potassium 4.4 mmol/L (3.4-5.0); Sodium 140 mmol/L (137-145)
[2022-01-25] MEDS: CENTRAL LINE FLUSH 10 ML IV PUSH ×4 (06:27→20:09)
--- NOTE | 2022-01-25 06:59 | PM.CNNEP ---
Assessment and Plan Assessment and plan (1) Chronic kidney disease (CKD): Qualifiers: Chronic kidney disease stage: stage 4 (severe) Qualified Code(s): N18.4 - Chronic kidney disease, stage 4 (severe) Code(s): N18.9 - Chronic kidney disease, unspecified Status: Acute Assessment and Plan: the patient has chronic kidney disease by history from [facility]. We do not have any baseline creatinine is. Will call for these. Her urine does show some protein but is otherwise bland. The patient does have diabetes and hypertension which are probably affecting the kidneys. Will get a renal ultrasound to make sure there is no obstruction. (2) Respiratory failure with hypoxia and hypercapnia: Code(s): J96.91 - Respiratory failure, unspecified with hypoxia; J96.92 - Respiratory failure, unspecified with hypercapnia Status: Acute Assessment and Plan: The patient has respiratory failure. She is on the ventilator. Pulmonary has been consulted. (3) GI bleed: Code(s): K92.2 - Gastrointestinal hemorrhage, unspecified Status: Acute Assessment and Plan: The patient has guaiac-positive stools and a dropping hemoglobin. GI has been consulted. (4) Hypertension: Code(s): I10 - Essential (primary) hypertension Status: Acute Assessment and Plan: Her blood pressure is under pretty good control right now. It was high yesterday when she was in respiratory distress. She is not on any scheduled antihypertensives right now. Will keep an eye on things and fold her outpatient meds in as needed. She is on some diuretics for her swelling. (5) DM2 (diabetes mellitus, type 2): Code(s): E11.9 - Type 2 diabetes mellitus without complications Status: Acute Assessment and Plan: The patient has diabetes. She is on insulin and sliding scale per hospitalist. (6) Anemia: Qualifiers: Anemia type: unspecified type Qualified Code(s): D64.9 - Anemia, unspecified Code(s): D64.9 - Anemia, unspecified Status: Acute Assessment and Plan: Hemoglobin was very low when she came in. She got some blood and now hemoglobin is dropping again. GI is on the case. (7) Lung mass: Code(s): R91.8 - Other nonspecific abnormal finding of lung field Status: Acute Assessment and Plan: She was noted to have a lung mass seen on her CT scan of the neck. Pulmonary has been consulted for the (8) Pneumonia: Qualifiers: Laterality: right Lung location: lower lobe of lung Pneumonia type: due to unspecified organism Qualified Code(s): J18.9 - Pneumonia, unspecified organism Code(s): J18.9 - Pneumonia, unspecified organism Status: Acute Assessment and Plan: the patient has some changes and her chest x-ray which may be consistent with pneumonia. She is on ceftriaxone and azithromycin for this. History of Present Illness Reason for Consult Consult date: 01/25/22 Chief Complaint Chief complaint: Gi Bleed, Anemia, status post blood transf History of Present Illness Narrative: Nestor is a very pleasant 86-year-old lady who has multiple medical problems including senile dementia of the Alzheimer's type, GERD, diabetes, hypertension, chronic kidney disease but unknown baseline creatinine. She fell on the day of admission. [facility] called 911 and had her brought over to the ER. This is the 1st time she has been to this hospital. Initial blood work showed a hemoglobin of 6.9. She was guaiac positive. Attempts were made to transfer the patient because there was no GI coverage at this hospital at the time but no one could accept her does of senses and so she was admitted here. She was given blood transfusions and her hemoglobin came up to as high as 10 and it is dropped to about 8.5 today. Yesterday the patient became short of breath. They tried BiPAP
[2022-01-25 07:34] LABS: Free T4 Free Thyroxine Reflex 1.65 ng/dL (0.78-2.19)
--- NOTE | 2022-01-25 08:34 | PCSTNOTE ---
Order received for MBS. Per radiology they do not have an order. Contacted nursing on unit and notified them. Will await their order so MBS can be scheduled this morning.
[2022-01-25] MEDS: ALBUTEROL SULFATE NEB 2.5 MG/3 ML INH 5 MG INHALATION ×3 (08:57→20:28)
[2022-01-25] MEDS: MINERAL OIL/WHITE PETROLATUM OINTMENT 1 APPLIC EACH EYE ×2 (09:19→20:09)
[2022-01-25] MEDS: PANTOPRAZOLE SODIUM IV 40 MG VIAL IV PUSH ×2 (09:20→18:16)
--- NOTE | 2022-01-25 09:22 | WPDCNINT ---
Assessment and Plan Assessment and plan (1) Respiratory failure with hypoxia and hypercapnia: Code(s): J96.91 - Respiratory failure, unspecified with hypoxia; J96.92 - Respiratory failure, unspecified with hypercapnia Status: Acute Assessment and Plan: Patient with acute hypoxic sick and hypercapnic respiratory failure likely related to the obstructive sleep apnea, pneumonia, aspiration, silently aspirating. -patient was initially placed on BiPAP, blood gases was significantly worse with decreased mental status, patient was intubated on 01/24/2022 -currently on CMV mode, peep of 5, 45% FiO2, will wean FiO2 to maintain O2 sats greater than 92% -chest x-ray this morning: Cardiomegaly, congestive changes, bilateral infiltrates, relatively stable since 01/2022? Sedated with fentanyl and Versed, maintain RASS of 0 to -2. -continue bronchodilators -continue Zosyn and vancomycin for possible pneumonia/aspiration (2) Pneumonia: Qualifiers: Laterality: right Lung location: lower lobe of lung Pneumonia type: due to unspecified organism Qualified Code(s): J18.9 - Pneumonia, unspecified organism Code(s): J18.9 - Pneumonia, unspecified organism Status: Acute Assessment and Plan: Chest x-ray showed pneumonia, likely aspiration versus community-acquired (3) Chronic kidney disease (CKD): Qualifiers: Chronic kidney disease stage: stage 4 (severe) Qualified Code(s): N18.4 - Chronic kidney disease, stage 4 (severe) Code(s): N18.9 - Chronic kidney disease, unspecified Status: Acute Assessment and Plan: Acute on chronic kidney disease , unknown baseline creatinine -patient received adequate IV fluids -continue maintenance IV fluid -urine output has been added -nephrology has been consulted -will check urine lytes and renal ultrasound -continue to monitor urine output, renal function and electrolyte (4) Acute GI bleeding: Code(s): K92.2 - Gastrointestinal hemorrhage, unspecified Status: Acute Assessment and Plan: Patient presented with a hemoglobin of 6.9 on 01/22/2022 -received 2 units of packed RBCs on 01/24/2028 -hemoglobin trending down post transfusion -INR 1.0 -will check stool for Hemoccult -GI has been consulted awaiting recommendations -patient on Protonix IV q.12 hours (5) Anemia: Qualifiers: Anemia type: unspecified type Qualified Code(s): D64.9 - Anemia, unspecified Code(s): D64.9 - Anemia, unspecified Status: Acute Assessment and Plan: As above (6) DM2 (diabetes mellitus, type 2): Code(s): E11.9 - Type 2 diabetes mellitus without complications Status: Acute Assessment and Plan: Sliding scale insulin Accu-Cheks (7) Chronic GERD: Code(s): K21.9 - Gastro-esophageal reflux disease without esophagitis Status: Acute Assessment and Plan: Continue PPI (8) Lung mass: Code(s): R91.8 - Other nonspecific abnormal finding of lung field Status: Acute Assessment and Plan: 01/22/2022: CT scan of the cervical spine showed Irregular shaped 2.1 cm left upper lobe mass, suspicious for bronchogenic carcinoma. -pulmonology has been consulted, awaiting recommendations - SARS-CoV-2 PCR, influenza A and B were negative on admission Plan DVT prophylaxis: SCDs, no chemoprophylaxis due to anemia and possible GI bleed Stress ulcer prophylaxis: Protonix Nutrition: Will start tube feeds Code Status: Full code Critical Care Time Spent: 48 minutes Due to a high probability of clinically significant, life threatening deterioration, the patient required my highest level of preparedness to intervene emergently and I personally spent this critical care time directly and personally managing the patient. This critical care time included obtaining a history; examining the patient; pulse oximetry; ordering and review of studies; arranging urgent treatment with development
--- NOTE | 2022-01-25 09:41 | PCSTNOTE ---
Patient was reintubated this morning.
[2022-01-25 11:30] LABS: Hematocrit 26.5 % (37.0-47.0); Hemoglobin 8.5 g/dL (12.0-15.0)
[2022-01-25 12:04] LABS: Glucose Point of Care 76 mg/dl (65-105)
[2022-01-25 12:23] LABS: Creatinine Urine 45.1 mg/dL; Total Protein Urine Random 13 mg/dL; Ur Ttl Prot Creatinine Ratio 0.29 mg/mg (0-0.20); Urea Random Urine 343 MG/DL
[2022-01-25 12:25] LABS: Sodium Urine Random 110 meq/L
[2022-01-25 13:33] LABS: Total Triiodothyronine (T3) 0.65 NG/ML (0.97-1.69)
--- NOTE | 2022-01-25 14:46 | WPDGICN ---
Assessment and Plan Assessment and plan (1) Anemia: Code(s): D64.9 - Anemia, unspecified Status: Acute Assessment and Plan: Patient admitted with anemia. According to her daughter she has a chronic anemia. The baseline blood count not immediately available for review. Patient has been admitted and evaluated previously at [facility]. At the present time given her comorbid diseases with respiratory failure now on the ventilator and a lung mass would defer invasive testing unless active bleeding described. No active bleeding has been described at this point. Will continue monitor hemoglobin. Iron, B12 and folate studies should be obtained. (2) Occult blood in stools: Code(s): R19.5 - Other fecal abnormalities Status: Acute Assessment and Plan: Occult blood in stool reported in the emergency room. No significant stooling since that time. Will repeat stool Hemoccult so that this is placed on the chart. (3) Lung mass: Code(s): R91.8 - Other nonspecific abnormal finding of lung field Status: Acute Assessment and Plan: Lung mass identified on scanning suggest possible bronchogenic carcinoma. Pulmonary consult may be of benefit. It is possible that if indeed she has a cancer this may be the main etiology for her anemia. (4) Respiratory failure: Code(s): J96.90 - Respiratory failure, unspecified, unspecified whether with hypoxia or hypercapnia Status: Acute Assessment and Plan: Patient currently on the ventilator. Appears to have had respiratory failure since presentation to the hospital. Likely related to pneumonia. Perhaps related to the lung mass identified on scanning. Pulmonary consult pending. Currently followed by [facility]. (5) DM2 (diabetes mellitus, type 2): Code(s): E11.9 - Type 2 diabetes mellitus without complications Status: Acute (6) Hypertension: Code(s): I10 - Essential (primary) hypertension Status: Acute (7) Pneumonia: Qualifiers: Laterality: right Lung location: lower lobe of lung Pneumonia type: due to unspecified organism Qualified Code(s): J18.9 - Pneumonia, unspecified organism Code(s): J18.9 - Pneumonia, unspecified organism Status: Acute GI Consult Note Consult date/time: 01/25/22 14:46 Reason for consult: Anemia, occult blood in stool HPI: Nestor Chacon is a 86 year old female I am asked to see because of anemia and occult blood in stool. Patient has a history of dementia, Patient apparently had a fall at the snf after stumbling. For this reason was taken to the emergency room on Tuesday or Tuesday over the weekend. In the emergency room she was noted to be anemic with a hemoglobin is 6.9. Ultimately she was transfused to a more stable hemoglobin. No active bleeding has been described. Patient's daughter who accompanies the patient today states that she is chronically anemic and has had previous evaluation in [facility]. These records are not available for review. Patient was admitted the hospital for observation because of concerns over anemia bleeding. She developed respiratory difficulties and was intubated. It was felt she likely has pneumonia. CT scanning suggests that she has a tumor in the lung could suspicious for bronchogenic carcinoma. Additionally patient has problems with hypertension, diabetes, felt to have chronic kidney disease. Patient currently on the ventilator unable to answer questions. Long discussion held with daughter regarding recent events and chronic history. Over the weekend patient's hemoglobin has been essentially stable. Ferritin is noted to be 18 but no other iron studies have yet been obtained. No significant stooling reported by nursing service. No opted bleeding over the weekend. Review of Systems Review of Systems: Review of systems noncontributory. [facility]
[2022-01-25 23:49] LABS: Glucose Point of Care 151 mg/dl (65-105)
[2022-01-26] VITALS (33 sets, daily range): BP systolic 106–140; BP diastolic 43–57; PULSE 66–85; RESP 20; TEMP 36.7–37.1; O2SAT 98–100
[2022-01-26] MEDS: IPRATROPIUM BR 0.02% INH SOLN 0.5 MG/2.5 ML VIAL INHALATION ×4 (01:51→20:51)
[2022-01-26] MEDS: ALBUTEROL SULFATE NEB 2.5 MG/3 ML INH 5 MG INHALATION ×4 (01:51→20:52)
[2022-01-26] MEDS: SODIUM CHLORIDE 0.9% IV 1,000 ML 75 ML IV CONT (02:30)
[2022-01-26 05:19] LABS: Alveolar/Arterial O2 Gradient 152.7 mmHg; Base Excess ABG -0.2 mEq/l (+/-2.0); Carboxyhemoglobin 0.3 % THb (0-2.0); Fractional Inspired Oxygen 45 %; HCO3 ABG 27.3 mEq/l (22.0-26.0); Methemoglobin ABG 0.3 %THb (0-1.5); Oxygen Content ABG 12.8 %vol (16.0-22.0); Oxygen Saturation ABG 96.5 % (95.0-100.0); Oxyhemoglobin 95.3 % THb (90.0-100.0); PO2 ABG 99.1 mmHg (80.0-100.0); Reduced Hemoglobin 4.1 %THb (0-5.0); Total Hemoglobin 9.4 g/dL (12.0-18.0)
[2022-01-26 05:21] LABS: pH ABG 7.271 (7.350-7.450)
[2022-01-26 05:22] LABS: Device VENTILATOR; Modified Allen's Test Pass; PCO2 ABG 60.7 mmHg (35.0-45.0); Site Drawn RIGHT RADIAL
[2022-01-26 05:23] LABS: Arterial Blood Gas PEEP 5 cmH2O; Arterial Blood Gas Tidal Volume 350 ml; Arterial Blood Gas Vent Mode CMV; Arterial Blood Gas Ventilator rate 20 /MIN
[2022-01-26 05:27] LABS: Albumin Level 2.9 g/dL (3.5-5.1); Anion Gap 5 mmol/L (8-16); Blood Urea Nitrogen 34 mg/dL (7-17); Calcium 7.3 mg/dL (8.4-10.2); Carbon Dioxide 25 mmol/L (22-30); Chloride 110 mmol/L (98-107); Estimated CRCL calculation 15 ml/min; Estimated Glomerular Filt Rate 21; Glucose 157 mg/dL (65-110); Phosphorus 3.8 mg/dL (2.5-4.5); Potassium 4.2 mmol/L (3.4-5.0); Sodium 140 mmol/L (137-145)
[2022-01-26 05:30] LABS: Alanine Aminotransferase 24 U/L (6-35); Albumin Level 2.9 g/dL (3.5-5.1); Alkaline Phosphatase 102 U/L (38-126); Anion Gap 5 mmol/L (8-16); Aspartate Amino Transferase 32 U/L (14-36); Bilirubin,Total 0.3 mg/dL (0.2-1.3); Blood Urea Nitrogen 35 mg/dL (7-17); Calcium 7.3 mg/dL (8.4-10.2); Carbon Dioxide 25 mmol/L (22-30); Chloride 109 mmol/L (98-107); Estimated CRCL calculation 15 ml/min; Estimated Glomerular Filt Rate 21; Glucose 156 mg/dL (65-110); Potassium 4.1 mmol/L (3.4-5.0); Sodium 139 mmol/L (137-145)
[2022-01-26 05:31] LABS: Basophils Percent Auto 0.3 % (0.2-1.2); Eosinophils Absolute Auto 0.1 K/mm3 (0-0.3); Eosinophils Percent Auto 1.4 % (0-4.4); Hematocrit 25.9 % (37.0-47.0); Hemoglobin 8.3 g/dL (12.0-15.0); Immature Granulocyte Absolute 0.03 K/mm3 (0.00-0.031); Immature Granulocyte Percent A 0.5 % (0-0.5); Lymphocytes Absolute Auto 0.37 K/mm3 (0.9-3.2); Lymphocytes Percent Auto 5.9 % (18.3-44.2); Mean Platelet Volume 10.8 fl (7.4-10.4); Monocytes Absolute Auto 0.6 K/mm3 (0.1-0.6); Monocytes Percent Auto 8.7 % (2.6-8.5); Neutrophils Absolute Auto 5.3 K/mm3 (1.3-6.7); Neutrophils Percent Auto 83.2 % (45.5-73.1); Nucleated Red Blood Cells Perc 0.3 % (0.0-0.2); Platelet Count Result 156 k/mm3 (150-375); Red Blood Count 3.32 M/mm3 (4.2-5.4); Red Cell Distribution Width 21.6 % (11.5-14.5); White Blood Count 6.3 K/mm3 (4.5-10.0)
[2022-01-26] MEDS: CENTRAL LINE FLUSH 10 ML IV PUSH ×4 (06:14→20:34)
[2022-01-26 06:32] LABS: Folic Acid 8.3 ng/mL (2.76->20)
[2022-01-26] MEDS: MINERAL OIL/WHITE PETROLATUM OINTMENT 1 APPLIC EACH EYE ×2 (08:38→20:34)
[2022-01-26] MEDS: PANTOPRAZOLE SODIUM IV 40 MG VIAL IV PUSH ×2 (08:38→16:56)
--- NOTE | 2022-01-26 09:20 | PM.PNNEP ---
Progress Note: A&P Assessment and Plan (1) Chronic kidney disease (CKD): Qualifiers: Chronic kidney disease stage: stage 4 (severe) Qualified Code(s): N18.4 - Chronic kidney disease, stage 4 (severe) Code(s): N18.9 - Chronic kidney disease, unspecified Status: Acute Assessment and Plan: the patient has chronic kidney disease by history from [facility]. We do not have any baseline creatinine is. daughter told that she had stage III/4 CKD. We are waiting for records to come from the [facility]. Her urine does show some protein but is otherwise bland. 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 Right kidney looks somewhat small at 9.4cm and has 1 cyst The patient does have diabetes and hypertension which are probably affecting the kidneys. her creatinine is seemingly stable. She may not have any acute issues. (2) Respiratory failure with hypoxia and hypercapnia: Code(s): J96.91 - Respiratory failure, unspecified with hypoxia; J96.92 - Respiratory failure, unspecified with hypercapnia Status: Acute Assessment and Plan: The patient has respiratory failure. She is on the ventilator. Pulmonary has been consulted. (3) GI bleed: Code(s): K92.2 - Gastrointestinal hemorrhage, unspecified Status: Acute Assessment and Plan: The patient has guaiac-positive stools and a dropping hemoglobin. GI has been consulted. (4) Hypertension: Code(s): I10 - Essential (primary) hypertension Status: Acute Assessment and Plan: Her blood pressure is under Good control the systolic between 100 and 120. She is not on any scheduled antihypertensives right now. Will keep an eye on things and fold her outpatient meds in as needed. She is on some diuretics for her swelling. (5) DM2 (diabetes mellitus, type 2): Code(s): E11.9 - Type 2 diabetes mellitus without complications Status: Acute Assessment and Plan: The patient has diabetes. She is on insulin and sliding scale per hospitalist. (6) Anemia: Qualifiers: Anemia type: unspecified type Qualified Code(s): D64.9 - Anemia, unspecified Code(s): D64.9 - Anemia, unspecified Status: Acute Assessment and Plan: Hemoglobin was very low when she came in. She got some blood And it sarah to 10. Now stable in the mid 8 for the last couple of days. GI is on the case. (7) Lung mass: Code(s): R91.8 - Other nonspecific abnormal finding of lung field Status: Acute Assessment and Plan: She was noted to have a lung mass seen on her CT scan of the neck. Pulmonary has been consulted for this (8) Pneumonia: Qualifiers: Laterality: right Lung location: lower lobe of lung Pneumonia type: due to unspecified organism Qualified Code(s): J18.9 - Pneumonia, unspecified organism Code(s): J18.9 - Pneumonia, unspecified organism Status: Acute Assessment and Plan: the patient has some changes and her chest x-ray which may be consistent with pneumonia. She is on ceftriaxone and azithromycin for this. Subjective Date/time seen: 01/26/22 09:20 Interval history: 01/26 Patient is on the ventilator. Sedated and comfortable Exam Narrative: WDWN female on the ventilator sedated in NAD skin no rash head ncat lungs coarse upper airway noise bilaterally cor reg no rub abd BS+ nontender and soft ext trace to1+ bilateral edema. Objective Data Vital Signs Vital Signs: Vital Signs - 24 hr 01/25/22 10:00 01/25/22 12:00 01/25/22 12:00 Temperature 97.9 F Pulse Rate 71 69 Respiratory Rate 20 22 H Blood Pressure 112/43 L Pulse Oximetry 100 100 Oxygen Delivery Mechanical Ventilation Fraction of Inspired Oxygen 45 45 01/25/22 12:00 01/25/22 14:00 01/25/22 16:00 Temperature 97.8 F 97.6 F Pulse Rate 69 69 75
[2022-01-26 10:40] LABS: Iron 15 ug/dL (37-170)
[2022-01-26 10:57] LABS: Percent Iron Saturation 5 % (20-50)
--- NOTE | 2022-01-26 11:39 | WPDGIPROGNO ---
Progress Note: A&P Assessment and Plan (1) Occult blood in stools: Code(s): R19.5 - Other fecal abnormalities Status: Acute Assessment and Plan: Occult blood in stool noted on presentation. No significant active bleeding evident. Continue to monitor closely. Invasive testing not indicated given her severe comorbid diseases and respiratory failure. (2) Anemia: Code(s): D64.9 - Anemia, unspecified Status: Acute Assessment and Plan: Anemia likely chronic. Patient hemoglobin 6.9 on admission now hemoglobin of 8.3 after 2units of blood. Relatively stable given transfusion. Continue monitor closely. No active bleeding reported at this time. Anemia likely multifactorial given the new finding of a lung mass and possible carcinoma. Bleeding may be a minimal contributing cause at this point. (3) Respiratory failure: Code(s): J96.90 - Respiratory failure, unspecified, unspecified whether with hypoxia or hypercapnia Status: Acute Assessment and Plan: Patient on the ventilator with respiratory failure. Likely has pneumonia and apparent mass suspicious for carcinoma on scanning. (4) Lung mass: Code(s): R91.8 - Other nonspecific abnormal finding of lung field Status: Acute Assessment and Plan: Lung mass identified by scanning. Pulmonary evaluation pending. (5) Pneumonia: Qualifiers: Laterality: right Lung location: lower lobe of lung Pneumonia type: due to unspecified organism Qualified Code(s): J18.9 - Pneumonia, unspecified organism Code(s): J18.9 - Pneumonia, unspecified organism Status: Acute Subjective Date/time seen: 01/26/22 11:39 patient remains on the ventilator. Unable to add any useful history. Likely sedated. No obvious bleeding reported by nursing staff. Review of Systems Review of Systems: ROS unobtainable: Yes unobtainable due to endotracheal tube Exam Narrative: On physical exam patient is sedated on the ventilator. HEENT exam reveals no icterus. Lungs are a few rhonchi. Heart without murmur. Abdomen is obese. Bowel sounds present soft no organomegaly evident. Objective Data Vital Signs Vital Signs: Vital Signs - 24 hr 01/25/22 12:00 01/25/22 12:00 01/25/22 12:00 Temperature 97.8 F Pulse Rate 69 69 Respiratory Rate 22 H 22 H Blood Pressure 116/47 L Pulse Oximetry 100 100 Oxygen Delivery Mechanical Ventilation Fraction of Inspired Oxygen 45 45 01/25/22 14:00 01/25/22 16:00 01/25/22 16:00 Temperature 97.6 F Pulse Rate 69 75 Respiratory Rate 21 H 20 Blood Pressure 104/65 Pulse Oximetry 98 100 Oxygen Delivery Mechanical Ventilation Fraction of Inspired Oxygen 45 45 01/25/22 16:00 01/25/22 14:49 01/25/22 14:49 Temperature 97.1 F L Pulse Rate 75 68 68 Respiratory Rate 20 20 Blood Pressure 117/51 L Pulse Oximetry 100 99 Oxygen Delivery Mechanical Ventilation Fraction of Inspired Oxygen 45 01/25/22 15:00 01/25/22 18:00 01/25/22 17:35 Temperature 97.1 F L Pulse Rate 63 75 68 Respiratory Rate 20 20 Blood Pressure 117/51 L Pulse Oximetry 100 100 Oxygen Delivery Mechanical Ventilation Fraction of Inspired Oxygen 45 01/25/22 20:28 01/25/22 20:29 01/25/22 20:00 Temperature 96.6 F L Pulse Rate 64 63 63 Respiratory Rate 20 20 Blood Pressure 113/47 L Pulse Oximetry 100 100 Oxygen Delivery Mechanical Ventilation Fraction of Inspired Oxygen 45 01/25/22 20:00 01/25/22 20:00 01/25/22 22:00 Temperature 97.1 F L Pulse Rate 63 63 Respiratory Rate 20 20 Blood Pressure 113/49 L Pulse Oximetry 100 99 Oxygen Delivery Mechanical Ventilation Fraction of Inspired Oxygen 45 45 01/26/22 00:00 01/26/22 00:00 01/26/22 00:00 Temperature 98.2 F Pulse Rate 74 74 Respiratory Rate 20 20 Blood Pressure 112/43 L Pulse Oximetry 99 99 Oxygen Delivery Mechanical Ventilation Fraction of Inspired Oxygen
--- NOTE | 2022-01-26 11:45 | PCNFU ---
Nutrition Follow-Up Complete: Inadequate energy intake related to NPO status, mechanical ventilation as evidenced by need for full tube feeding. Goal: Meet estimated nutrition needs Patient is meeting current goal. We will continue current goal. Pt current nutrition is Vital AF 1.2 at 60 ml/hr. Last recorded weight is 81.18 kg. Bowel Motility:No BM reported. Labs Reviewed:Glu 156, BUN 35, Cr 2.6,GFR 21, Alb 2.9 Meds Noted:Fentanyl, Versed, Lasix, NovoLog, Protonix, Atrovent Skin: WNL Additional Notes: Patient remains on mechanical vent and tube feedings of Vital AF 1.2 at 60 ml/hr and tolerating. Tube feedings are providing 1584 kcals/99 gms protein /1070 ml water. Flush 30 ml q 4 hours. Tube feeding is meeting 100% kcal and protein needs. Agree with diet orders. Monitoring labs, tolerance, weights, meds, skin, plan of care. Follow daily in ICU. Follow up Tuesday and Tuesday per policy
[2022-01-26 12:59] LABS: Glucose Point of Care 203 mg/dl (65-105)
[2022-01-26] MEDS: INSULIN ASPART (*BKC) 100 UNITS/ML SUB-Q (13:03)
--- NOTE | 2022-01-26 16:38 | WPDINTPN ---
Progress Note: A&P Assessment and Plan (1) Respiratory failure with hypoxia and hypercapnia: Code(s): J96.91 - Respiratory failure, unspecified with hypoxia; J96.92 - Respiratory failure, unspecified with hypercapnia Status: Acute Assessment and Plan: Patient with acute hypoxic sick and hypercapnic respiratory failure likely related to the obstructive sleep apnea, pneumonia, aspiration, silently aspirating. -patient was initially placed on BiPAP, blood gases was significantly worse with decreased mental status, patient was intubated on 01/24/2022 -currently on CMV mode, peep of 5, 45% FiO2, will wean FiO2 to maintain O2 sats greater than 92% -ABGs reviewed, will increase PEEP to 8 -chest x-ray this morning: Diffuse lung disease with worsening opacities of the right mid and lower lung zones, consistent with pneumonia and/or pulmonary edema.. Cardiomegaly.. Small pleural effusions? Sedated with fentanyl and Versed, maintain RASS of 0 to -2. -continue bronchodilators -continue Zosyn and vancomycin (01/24) for possible pneumonia/aspiration (2) Pneumonia: Qualifiers: Laterality: right Lung location: lower lobe of lung Pneumonia type: due to unspecified organism Qualified Code(s): J18.9 - Pneumonia, unspecified organism Code(s): J18.9 - Pneumonia, unspecified organism Status: Acute Assessment and Plan: Chest x-ray showed pneumonia, likely aspiration versus community-acquired (3) Chronic kidney disease (CKD): Qualifiers: Chronic kidney disease stage: stage 4 (severe) Qualified Code(s): N18.4 - Chronic kidney disease, stage 4 (severe) Code(s): N18.9 - Chronic kidney disease, unspecified Status: Acute Assessment and Plan: Acute on chronic kidney disease , unknown baseline creatinine -patient received adequate IV fluids -continue maintenance IV fluid -urine output has been added -nephrology has been consulted -will check urine lytes and renal ultrasound -continue to monitor urine output, renal function and electrolyte (4) Acute GI bleeding: Code(s): K92.2 - Gastrointestinal hemorrhage, unspecified Status: Acute Assessment and Plan: Patient presented with a hemoglobin of 6.9 on 01/22/2022 -received 2 units of packed RBCs on 01/24/2028 -INR 1.0 -will check stool for Hemoccult -appreciate GI evaluation recommendation, no intervention at this time -hemoglobin is relatively stable post transfusion -patient on Protonix IV q.12 hours (5) Anemia: Qualifiers: Anemia type: unspecified type Qualified Code(s): D64.9 - Anemia, unspecified Code(s): D64.9 - Anemia, unspecified Status: Acute Assessment and Plan: As above (6) DM2 (diabetes mellitus, type 2): Code(s): E11.9 - Type 2 diabetes mellitus without complications Status: Acute Assessment and Plan: Sliding scale insulin Accu-Cheks (7) Chronic GERD: Code(s): K21.9 - Gastro-esophageal reflux disease without esophagitis Status: Acute Assessment and Plan: Continue PPI (8) Lung mass: Code(s): R91.8 - Other nonspecific abnormal finding of lung field Status: Acute Assessment and Plan: 01/22/2022: CT scan of the cervical spine showed Irregular shaped 2.1 cm left upper lobe mass, suspicious for bronchogenic carcinoma. -pulmonology has been consulted, awaiting recommendations - SARS-CoV-2 PCR, influenza A and B were negative on admission Plan DVT prophylaxis: SCDs, no chemoprophylaxis due to anemia and possible GI bleed Stress ulcer prophylaxis: Protonix Nutrition: Tolerating tube feeds 01/25/2022: Discuss with daughter and updated her with patient's condition and plan of care. I answered all her questions Code Status: Full code Critical Care Time Spent: 34 minutes Due to a high probability of clinically significant, life threatening deterioration, the patient required my highest level of preparedne
[2022-01-26 17:26] LABS: Glucose Point of Care 145 mg/dl (65-105)
[2022-01-26] MEDS: MIDAZOLAM 100MG/NS 100ML(*CRX) 100 MG/100 ML BAG IV CONT (23:00)
[2022-01-27] VITALS (27 sets, daily range): BP systolic 118–147; BP diastolic 48–67; PULSE 62–78; RESP 20–22; TEMP 36.1–37.1; O2SAT 97–100
--- NOTE | 2022-01-27 | ECHO_ITS ---
Patient Info Name: Nestor Chacon Age: 86 years : 1935 Gender: Female Ht: 65 in Wt: 178 lbs BSA: 1.95 m2 HR: 70 bpm BP: 123 / 58 mmHg Heart Rhythm: Sinus Rhythm Technical Quality: Fair Exam Date: 01/27/2022 9:05 AM Exam Location: [facility] Pulmonary Patient Status: Inpatient Admit Date: 01/24/2022 Staff Ordering Physician: Nino Paul MD Tube Teller: Becki Blue RDCS Attending Provider: Mehreen Hernandez MD Referring Physician: Beverly LUZ; Exam Type: CA echo dop color flow w con Study Info Indications - pulmonary edema, respiratory failure Complete two-dimensional, color flow and Doppler transthoracic echocardiogram is performed with contrast to opacify the left ventricle and to improve the deliniation of the left ventricle endocardial borders. Contrast/Agitated Saline Contrast/Ag. Saline: Definity Amount: 3.00 ml Administered By: Becki Blue RDCS Existing IV Access: Yes IV Access Condition: patent with no signs of infiltration Summary 1. Technically difficult study with limited views. 2. Left ventricular systolic function is mildly reduced, estimated at 45-50%. 3. Right ventricular systolic function is normal. 4. Left atrial chamber dimension is mildly enlarged. 5. There is mild tricuspid valve regurgitation. 6. Dilated inferior vena cava with <50% collapse upon inspiration consistent with elevated right atrial pressure. Left Ventricle Left ventricular chamber dimension is normal. Left ventricular systolic function is mildly reduced, estimated at 45-50%. Right Ventricle Right ventricular chamber dimension is normal. Right ventricular systolic function is normal. Left Atria Left atrial chamber dimension is mildly enlarged. Right Atria Right atrial chamber dimension is normal. Atrial Septum Intact interatrial septum visualized by color flow imaging. Aortic Valve The aortic valve is not well visualized. There is no aortic valve stenosis. There is no aortic valve regurgitation. Pulmonic Valve The pulmonic valve is not well visualized. Mitral Valve The mitral valve has thickened leaflets. There is no mitral valve stenosis. There is no mitral valve regurgitation. Tricuspid Valve The tricuspid valve leaflets are normal. There is mild tricuspid valve regurgitation. Pericardium/Pleural There is no pericardial effusion. Inferior Vena Cava Dilated inferior vena cava with <50% collapse upon inspiration consistent with elevated right atrial pressure. Aorta The aortic root size at the sinus of Valsalva is normal. Left Ventricular Outflow Tract Name Value Normal LVOT 2D LVOT Diameter 2.02 cm LVOT Doppler LVOT Peak Gradient 2 mmHg LVOT Mean Gradient 1 mmHg LVOT VTI 16.25 cm LVOT VTI/AV VTI Ratio 0.67 LVOT Stroke Volume 51.99 ml LVOT CO 3.74 l/min LVOT CI 1.92 L/min/m2
[2022-01-27 00:35] LABS: Glucose Point of Care 152 mg/dl (65-105)
[2022-01-27] MEDS: IPRATROPIUM BR 0.02% INH SOLN 0.5 MG/2.5 ML VIAL INHALATION ×4 (03:34→21:22)
[2022-01-27] MEDS: ALBUTEROL SULFATE NEB 2.5 MG/3 ML INH 5 MG INHALATION ×4 (03:35→21:21)
[2022-01-27 04:20] LABS: Basophils Percent Auto 0.3 % (0.2-1.2); Eosinophils Absolute Auto 0.2 K/mm3 (0-0.3); Eosinophils Percent Auto 2.6 % (0-4.4); Hematocrit 25.7 % (37.0-47.0); Hemoglobin 8.3 g/dL (12.0-15.0); Immature Granulocyte Absolute 0.04 K/mm3 (0.00-0.031); Immature Granulocyte Percent A 0.6 % (0-0.5); Lymphocytes Absolute Auto 0.62 K/mm3 (0.9-3.2); Lymphocytes Percent Auto 9.5 % (18.3-44.2); Mean Corpuscular HGB Conc 32.3 g/dl (32-36); Mean Corpuscular Hemoglobin 24.9 pg (26-34); Mean Corpuscular Volume 77.2 fl (80-100); Mean Platelet Volume 9.4 fl (7.4-10.4); Monocytes Absolute Auto 0.7 K/mm3 (0.1-0.6); Monocytes Percent Auto 10.6 % (2.6-8.5); Neutrophils Percent Auto 76.4 % (45.5-73.1); Platelet Count Result 147 k/mm3 (150-375); Red Blood Count 3.33 M/mm3 (4.2-5.4); Red Cell Distribution Width 21.8 % (11.5-14.5); White Blood Count 6.5 K/mm3 (4.5-10.0)
[2022-01-27 04:34] LABS: Alanine Aminotransferase 20 U/L (6-35); Alkaline Phosphatase 105 U/L (38-126); Anion Gap 4 mmol/L (8-16); Aspartate Amino Transferase 29 U/L (14-36); Bilirubin,Total 0.4 mg/dL (0.2-1.3); Blood Urea Nitrogen 38 mg/dL (7-17); Calcium 7.5 mg/dL (8.4-10.2); Carbon Dioxide 26 mmol/L (22-30); Chloride 109 mmol/L (98-107); Estimated CRCL calculation 14 ml/min; Estimated Glomerular Filt Rate 20; Glucose 167 mg/dL (65-110); Potassium 4.2 mmol/L (3.4-5.0); Sodium 139 mmol/L (137-145)
[2022-01-27 04:35] LABS: Albumin Level 3.1 g/dL (3.5-5.1); Anion Gap 4 mmol/L (8-16); Blood Urea Nitrogen 38 mg/dL (7-17); Calcium 7.5 mg/dL (8.4-10.2); Carbon Dioxide 26 mmol/L (22-30); Chloride 109 mmol/L (98-107); Estimated CRCL calculation 14 ml/min; Estimated Glomerular Filt Rate 20; Glucose 167 mg/dL (65-110); Phosphorus 3.7 mg/dL (2.5-4.5); Potassium 4.3 mmol/L (3.4-5.0); Sodium 139 mmol/L (137-145)
[2022-01-27 05:52] LABS: Alveolar/Arterial O2 Gradient 76.5 mmHg; Base Excess ABG -1.8 mEq/l (+/-2.0); Carboxyhemoglobin 0.3 % THb (0-2.0); Fractional Inspired Oxygen 30 %; HCO3 ABG 25.4 mEq/l (22.0-26.0); Methemoglobin ABG 0.3 %THb (0-1.5); Oxygen Content ABG 16.9 %vol (16.0-22.0); Oxygen Saturation ABG 93.2 % (95.0-100.0); PCO2 ABG 53.7 mmHg (35.0-45.0); PO2 ABG 74.3 mmHg (80.0-100.0); PO2 FiO2 Ratio Arterial Blood 2.48 %; Reduced Hemoglobin 6.4 %THb (0-5.0); Total Hemoglobin 12.9 g/dL (12.0-18.0)
[2022-01-27 05:53] LABS: Arterial Blood Gas Ventilator rate 20 /MIN; Device VENTILATOR; Modified Allen's Test Pass; Site Drawn LEFT RADIAL; pH ABG 7.293 (7.350-7.450)
[2022-01-27 05:54] LABS: Arterial Blood Gas PEEP 8 cmH2O; Arterial Blood Gas Tidal Volume 400 ml; Arterial Blood Gas Vent Mode CMV
[2022-01-27] MEDS: CENTRAL LINE FLUSH 10 ML IV PUSH ×4 (06:07→20:47)
--- NOTE | 2022-01-27 07:57 | WPDGIPROGNO ---
Progress Note: A&P Assessment and Plan (1) Occult blood in stools: Code(s): R19.5 - Other fecal abnormalities Status: Acute Assessment and Plan: Patient presented was found to have occult blood in stool. No significant active bleeding described. Hemoglobin stable. Continue to monitor conservatively at this point. (2) Anemia: Code(s): D64.9 - Anemia, unspecified Status: Acute Assessment and Plan: Patient with microcytic anemia. Appears to be iron deficiency. Hemoglobin essentially stable. Appears as though this is a chronic underlying anemia. (3) Respiratory failure: Code(s): J96.90 - Respiratory failure, unspecified, unspecified whether with hypoxia or hypercapnia Status: Acute Assessment and Plan: Patient remains on the ventilator. Appears to have underlying pneumonia and a lung mass. [employer] monitoring at this point. (4) Pneumonia: Qualifiers: Laterality: right Lung location: lower lobe of lung Pneumonia type: due to unspecified organism Qualified Code(s): J18.9 - Pneumonia, unspecified organism Code(s): J18.9 - Pneumonia, unspecified organism Status: Acute (5) Chronic kidney disease (CKD): Qualifiers: Chronic kidney disease stage: stage 4 (severe) Qualified Code(s): N18.4 - Chronic kidney disease, stage 4 (severe) Code(s): N18.9 - Chronic kidney disease, unspecified Status: Acute (6) DM2 (diabetes mellitus, type 2): Code(s): E11.9 - Type 2 diabetes mellitus without complications Status: Acute (7) Lung mass: Code(s): R91.8 - Other nonspecific abnormal finding of lung field Status: Acute Assessment and Plan: Imaging suggests this may be a bronchogenic carcinoma. Subjective Date/time seen: 01/27/22 07:57 Patient remains intubated on the ventilator in the intensive care unit. Unable to add any useful history. No additional significant bleeding described. Hemoglobin stable. Review of Systems Review of Systems: ROS unobtainable: Yes unobtainable due to endotracheal tube Exam Narrative: Patient on the ventilator. Vital signs stable. HEENT exam unremarkable. She is anicteric. Lungs reveal scattered rhonchi. Heart without murmur. Abdomen is soft. No organomegaly or masses noted. Objective Data Vital Signs Vital Signs: Vital Signs - 24 hr 01/26/22 08:03 01/26/22 08:04 01/26/22 08:00 Temperature 98.4 F Pulse Rate 67 85 68 Respiratory Rate 20 20 20 Blood Pressure 108/43 L Pulse Oximetry 100 Oxygen Delivery Fraction of Inspired Oxygen 01/26/22 08:28 01/26/22 08:28 01/26/22 09:00 Temperature Pulse Rate 66 66 71 Respiratory Rate 20 20 Blood Pressure Pulse Oximetry 100 Oxygen Delivery Mechanical Ventilation Fraction of Inspired Oxygen 45 01/26/22 09:00 01/26/22 09:16 01/26/22 08:00 Temperature Pulse Rate 71 71 Respiratory Rate 20 Blood Pressure Pulse Oximetry Oxygen Delivery Fraction of Inspired Oxygen 45 01/26/22 10:00 01/26/22 08:00 01/26/22 08:00 Temperature 98.1 F Pulse Rate 77 67 Respiratory Rate 20 Blood Pressure 112/57 L Pulse Oximetry 100 100 Oxygen Delivery Mechanical Ventilation Fraction of Inspired Oxygen 45 01/26/22 10:00 01/26/22 10:53 01/26/22 12:00 Temperature Pulse Rate 76 76 Respiratory Rate Blood Pressure Pulse Oximetry 100 100 Oxygen Delivery Mechanical Ventilation Mechanical Ventilation Fraction of Inspired Oxygen 45 45 01/26/22 12:00 01/26/22 14:15 01/26/22 14:18 Temperature Pulse Rate 72 72 Respiratory Rate 20 Blood Pressure Pulse Oximetry 99 Oxygen Delivery Mechanical Ventilation Fraction of Inspired Oxygen 45 45 01/26/22 14:31 01/26/22 12:00 01/26/22 12:00 Temperature 98.2 F Pulse Rate 78 77 77 Respiratory Rate 20 20 Blood Pressure 118/50 L Pulse Oximetry 100 Oxygen Delivery F
[2022-01-27] MEDS: MINERAL OIL/WHITE PETROLATUM OINTMENT 1 APPLIC EACH EYE ×2 (08:34→20:46)
[2022-01-27] MEDS: FUROSEMIDE INJ 40 MG/4 ML VIAL IV PUSH (08:34)
[2022-01-27] MEDS: PANTOPRAZOLE SODIUM IV 40 MG VIAL IV PUSH ×2 (08:35→17:17)
[2022-01-27] MEDS: PERFLUTREN LIPID MICROSPHERES 1.5 ML VIAL DILUTED TO 10 ML TOTAL VOLUME IV PUSH (09:30)
[2022-01-27 11:25] LABS: Glucose Point of Care 214 mg/dl (65-105)
[2022-01-27] MEDS: FENTANYL 2,500MCG/NS250ML(*CRX 2,500 MCG/250 ML BAG IV CONT (11:46)
[2022-01-27] MEDS: INSULIN ASPART (*BKC) 100 UNITS/ML SUB-Q (11:46)
[2022-01-27 12:02] LABS: Device NASAL CANNULA
--- NOTE | 2022-01-27 12:06 | PCFNICU ---
ICU Rounding Note: Pt current nutrition is Vital AF 1.2 at 60 ml/hr. Last recorded weight is 81.18 kg. Bowel Motility:No Bm reported. Labs Reviewed:Glu 167, Cr 2.7,BUN 38, GFR 20, Alb 3.0 Meds Noted:Fentanyl, Versed, Lasix, NovoLog, Protonix, Atrovent Skin: WNL Additional Notes: Patient remains on mechanical vent and tube feedings of Vital AF 1.2 at 60 ml/hr and tolerating per nursing. Flush 30 ml q 4 hours. Echo planned for today. Agree with diet orders. Monitoring: Follow daily in ICU. Reassessing every Tuesday and Tuesday per policy.
[2022-01-27 12:08] LABS: Expiratory Pressure 8 cmH2O; Inspiratory Pressure 14 cmH2O
--- NOTE | 2022-01-27 13:25 | PM.PNNEP ---
Progress Note: A&P Assessment and Plan (1) Chronic kidney disease (CKD): Qualifiers: Chronic kidney disease stage: stage 4 (severe) Qualified Code(s): N18.4 - Chronic kidney disease, stage 4 (severe) Code(s): N18.9 - Chronic kidney disease, unspecified Status: Acute Assessment and Plan: the patient has chronic kidney disease by history from [facility]. We do not have any baseline creatinine is. she apparently has stage 3/4 chronic kidney disease. Await labs. Her urine does show some protein but is otherwise bland. 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 Right kidney looks somewhat small at 9.4cm and has 1 cyst The patient does have diabetes and hypertension which are probably affecting the kidneys. her creatinine is seemingly stable. She probably has chronic kidney disease and is at baseline. (2) Respiratory failure with hypoxia and hypercapnia: Code(s): J96.91 - Respiratory failure, unspecified with hypoxia; J96.92 - Respiratory failure, unspecified with hypercapnia Status: Acute Assessment and Plan: The patient has respiratory failure. She is on the ventilator. Pulmonary has been consulted. I agree with the patient looks a little volume overloaded. Since nothing acute going on with the kidneys I agree with diuretics. (3) GI bleed: Code(s): K92.2 - Gastrointestinal hemorrhage, unspecified Status: Acute Assessment and Plan: The patient has guaiac-positive stools and a dropping hemoglobin. hemoglobin stable in the mid 8. GI has been consulted. (4) Hypertension: Code(s): I10 - Essential (primary) hypertension Status: Acute Assessment and Plan: Her blood pressure is under good control the systolic between 100 and 150. But mostly on the lower side She is not on any scheduled antihypertensives right now. Will keep an eye on things and fold her outpatient meds in as needed. She is on some diuretics for her swelling. (5) DM2 (diabetes mellitus, type 2): Code(s): E11.9 - Type 2 diabetes mellitus without complications Status: Acute Assessment and Plan: The patient has diabetes. She is on insulin and sliding scale per hospitalist. (6) Anemia: Qualifiers: Anemia type: unspecified type Qualified Code(s): D64.9 - Anemia, unspecified Code(s): D64.9 - Anemia, unspecified Status: Acute Assessment and Plan: Hemoglobin was very low when she came in. She got some blood And it sarah to 10. Now stable in the mid 8 for the last couple of days. GI is on the case. (7) Lung mass: Code(s): R91.8 - Other nonspecific abnormal finding of lung field Status: Acute Assessment and Plan: She was noted to have a lung mass seen on her CT scan of the neck. Pulmonary has been consulted for this (8) Pneumonia: Qualifiers: Laterality: right Lung location: lower lobe of lung Pneumonia type: due to unspecified organism Qualified Code(s): J18.9 - Pneumonia, unspecified organism Code(s): J18.9 - Pneumonia, unspecified organism Status: Acute Assessment and Plan: the patient has some changes and her chest x-ray which may be consistent with pneumonia. She is on Zosyn Subjective Date/time seen: 01/27/22 13:25 Interval history: 01/26 Patient is on the ventilator. Sedated and comfortable 01/27 patient is on the ventilator. A little more interactive but I do not understand what she says. Her daughter Mary is in the room Exam Narrative: WDWN female on the ventilator sedated in NAD skin no rash or subcu nodules head ncat lungs coarse upper airway noise bilaterally cor reg no rub or gallop abd BS+ nontender and soft ext trace to1+ bilateral edema. Objective Data Vital Signs Vital Signs: Vital Signs - 24 hr 01/26/22 14:15 01/26/22
--- NOTE | 2022-01-27 13:36 | WPDINTPN ---
Progress Note: A&P Assessment and Plan (1) Respiratory failure with hypoxia and hypercapnia: Code(s): J96.91 - Respiratory failure, unspecified with hypoxia; J96.92 - Respiratory failure, unspecified with hypercapnia Status: Acute Assessment and Plan: Patient with acute hypoxic and hypercapnic respiratory failure likely related to the obstructive sleep apnea, pneumonia, aspiration, silently aspirating. - SARS-CoV-2 PCR, influenza A and B were negative on admission -patient was initially placed on BiPAP, blood gases was significantly worse with decreased mental status, patient was intubated on 01/24/2022 -currently on CMV mode, peep of 8, 30% FiO2, will wean FiO2 to maintain O2 sats greater than 92% -ABGs reviewed, -chest x-ray this morning:Small bilateral pleural effusions with associated atelectasis and/or pneumonia in the bilateral mid to lower lung zones, unchanged on the left and more prominent but with interval improvement on the right. Sedated with fentanyl and Versed, maintain RASS of 0 to -2. -continue bronchodilators -continue Zosyn and vancomycin (01/24) for possible pneumonia/aspiration -will diurese patient today (2) Pneumonia: Qualifiers: Laterality: right Lung location: lower lobe of lung Pneumonia type: due to unspecified organism Qualified Code(s): J18.9 - Pneumonia, unspecified organism Code(s): J18.9 - Pneumonia, unspecified organism Status: Acute Assessment and Plan: Chest x-ray showed pneumonia, likely aspiration versus community-acquired -continue antibiotics as above (3) Chronic kidney disease (CKD): Qualifiers: Chronic kidney disease stage: stage 4 (severe) Qualified Code(s): N18.4 - Chronic kidney disease, stage 4 (severe) Code(s): N18.9 - Chronic kidney disease, unspecified Status: Acute Assessment and Plan: Acute on chronic kidney disease , unknown baseline creatinine -patient received adequate IV fluids -continue maintenance IV fluid -urine output has been adequate -Appreciate nephrology following the patient -urine electrolytes show a non pre renal picture -01/25/2022: Renal ultrasoundLimited study. Right renal cyst measuring 1.8 cm., left kidney is not visualized, no solid masses, hydronephrosis or stones -continue to monitor urine output, renal function and electrolyte (4) Acute GI bleeding: Code(s): K92.2 - Gastrointestinal hemorrhage, unspecified Status: Acute Assessment and Plan: Patient presented with a hemoglobin of 6.9 on 01/22/2022 -received 2 units of packed RBCs on 01/24/2028 -INR 1.0 -will check stool for Hemoccult, which has been ordered -appreciate GI evaluation recommendation, no intervention at this time continue conservative treatment -hemoglobin is relatively stable post transfusion -patient on Protonix IV q.12 hours (5) Anemia: Qualifiers: Anemia type: unspecified type Qualified Code(s): D64.9 - Anemia, unspecified Code(s): D64.9 - Anemia, unspecified Status: Acute Assessment and Plan: As above (6) DM2 (diabetes mellitus, type 2): Code(s): E11.9 - Type 2 diabetes mellitus without complications Status: Acute Assessment and Plan: Sliding scale insulin Accu-Cheks (7) Chronic GERD: Code(s): K21.9 - Gastro-esophageal reflux disease without esophagitis Status: Acute Assessment and Plan: Continue PPI (8) Lung mass: Code(s): R91.8 - Other nonspecific abnormal finding of lung field Status: Acute Assessment and Plan: 01/22/2022: CT scan of the cervical spine showed Irregular shaped 2.1 cm left upper lobe mass, suspicious for bronchogenic carcinoma. -pulmonology has been consulted, awaiting recommendations Plan DVT prophylaxis: SCDs, no chemoprophylaxis due to anemia and possible GI bleed Stress ulcer prophylaxis: Protonix Nutrition: Tolerating tube feeds 01/27/2022: Discuss with mayito
[2022-01-27 17:27] LABS: Glucose Point of Care 175 mg/dl (65-105)
[2022-01-28] VITALS (71 sets, daily range): BP systolic 129–149; BP diastolic 43–80; PULSE 62–87; RESP 15–24; TEMP 35.9–37.2; O2SAT 96–100
[2022-01-28 01:06] LABS: Glucose Point of Care 188 mg/dl (65-105)
[2022-01-28] MEDS: IPRATROPIUM BR 0.02% INH SOLN 0.5 MG/2.5 ML VIAL INHALATION ×4 (02:40→21:24)
[2022-01-28] MEDS: ALBUTEROL SULFATE NEB 2.5 MG/3 ML INH 5 MG INHALATION ×4 (02:40→21:24)
[2022-01-28 05:48] LABS: Alveolar/Arterial O2 Gradient 65.8 mmHg; Carboxyhemoglobin 0.2 % THb (0-2.0); Fractional Inspired Oxygen 30 %; HCO3 ABG 26.1 mEq/l (22.0-26.0); Methemoglobin ABG 0.4 %THb (0-1.5); Oxygen Content ABG 14.6 %vol (16.0-22.0); Oxygen Saturation ABG 97.9 % (95.0-100.0); Oxyhemoglobin 96.2 % THb (90.0-100.0); PO2 ABG 102.3 mmHg (80.0-100.0); PO2 FiO2 Ratio Arterial Blood 3.41 %; Reduced Hemoglobin 3.2 %THb (0-5.0); Total Hemoglobin 10.7 g/dL (12.0-18.0); pH ABG 7.444 (7.350-7.450)
[2022-01-28 05:49] LABS: Arterial Blood Gas PEEP 8 cmH2O; Arterial Blood Gas Tidal Volume 400 ml; Arterial Blood Gas Vent Mode CMV; Arterial Blood Gas Ventilator rate 22 /MIN; Device VENTILATOR; Modified Allen's Test Pass; Site Drawn LEFT RADIAL
[2022-01-28 06:10] LABS: Basophils Percent Auto 0.2 % (0.2-1.2); Eosinophils Absolute Auto 0.2 K/mm3 (0-0.3); Eosinophils Percent Auto 3.3 % (0-4.4); Hematocrit 25.6 % (37.0-47.0); Hemoglobin 8.4 g/dL (12.0-15.0); Immature Granulocyte Absolute 0.04 K/mm3 (0.00-0.031); Immature Granulocyte Percent A 0.6 % (0-0.5); Lymphocytes Absolute Auto 0.56 K/mm3 (0.9-3.2); Lymphocytes Percent Auto 8.8 % (18.3-44.2); Mean Corpuscular HGB Conc 32.8 g/dl (32-36); Mean Corpuscular Hemoglobin 25.4 pg (26-34); Mean Corpuscular Volume 77.3 fl (80-100); Mean Platelet Volume 10.6 fl (7.4-10.4); Monocytes Absolute Auto 0.6 K/mm3 (0.1-0.6); Neutrophils Absolute Auto 4.9 K/mm3 (1.3-6.7); Neutrophils Percent Auto 77.1 % (45.5-73.1); Platelet Count Result 171 k/mm3 (150-375); Red Blood Count 3.31 M/mm3 (4.2-5.4); Red Cell Distribution Width 22.2 % (11.5-14.5); White Blood Count 6.4 K/mm3 (4.5-10.0)
[2022-01-28] MEDS: CENTRAL LINE FLUSH 10 ML IV PUSH ×4 (06:14→21:01)
[2022-01-28 06:58] LABS: Lactic Acid Reflex 0.6 mmol/L (0.7-2.0)
[2022-01-28 06:59] LABS: Albumin Level 3.2 g/dL (3.5-5.1); Anion Gap 6 mmol/L (8-16); Blood Urea Nitrogen 45 mg/dL (7-17); Calcium 7.9 mg/dL (8.4-10.2); Carbon Dioxide 26 mmol/L (22-30); Chloride 107 mmol/L (98-107); Estimated CRCL calculation 14 ml/min; Estimated Glomerular Filt Rate 20; Glucose 201 mg/dL (65-110); Phosphorus 3.7 mg/dL (2.5-4.5); Potassium 4.3 mmol/L (3.4-5.0); Sodium 139 mmol/L (137-145)
[2022-01-28] MEDS: INSULIN ASPART (*BKC) 100 UNITS/ML SUB-Q ×4 (07:31→23:57)
[2022-01-28 08:37] LABS: Hypochromasia 1+ (NORMAL); Platelet Estimate Adequate (Adequate); Poikilocytosis 1+ (NORMAL); Target Cells 2+ (NORMAL)
[2022-01-28 08:38] LABS: Anisocytosis 1+ (NORMAL); Schistocytes None Seen (NORMAL); Spherocytes 1+ (NORMAL)
[2022-01-28] MEDS: CALCIUM GLUC 2,000 MG/NS 100ML 2,000 MG/100 ML BAG 100 MG IVPB (09:45)
[2022-01-28] MEDS: FUROSEMIDE INJ 40 MG/4 ML VIAL IV PUSH (09:45)
[2022-01-28] MEDS: PANTOPRAZOLE SODIUM IV 40 MG VIAL IV PUSH ×2 (09:45→18:05)
[2022-01-28] MEDS: MINERAL OIL/WHITE PETROLATUM OINTMENT 1 APPLIC EACH EYE ×2 (09:45→21:02)
--- NOTE | 2022-01-28 10:50 | PCFNICU ---
ICU Rounding Note: Pt current nutrition is Vital AF 1.2 at 60ml/hr. Last recorded weight is 81.18 kg. Bowel Motility:+BM reported 01/28 Labs Reviewed: Glu 201, BUN 45, Cr 2.7,GFR 20, Alb 3.2 Meds Noted:Fentanyl, Versed, Lasix, NovoLog, Protonix, Atrovent Skin: WNL Additional Notes: Patient remains on mechanical vent and tube feedings of Vital AF 1.2 at 60 ml/hr and tolerating per nursing. Flush 30 ml q 4 hours. Agree with diet orders. Follow daily in ICU. Follow up Tuesday and Tuesday per policy.
[2022-01-28 12:36] LABS: Glucose Point of Care 224 mg/dl (65-105)
--- NOTE | 2022-01-28 13:27 | WPDINTPN ---
Progress Note: A&P Assessment and Plan (1) Respiratory failure with hypoxia and hypercapnia: Code(s): J96.91 - Respiratory failure, unspecified with hypoxia; J96.92 - Respiratory failure, unspecified with hypercapnia Status: Acute Assessment and Plan: Patient with acute hypoxic and hypercapnic respiratory failure likely related to the obstructive sleep apnea, pneumonia, aspiration, silently aspirating. - SARS-CoV-2 PCR, influenza A and B were negative on admission -patient was initially placed on BiPAP, blood gases was significantly worse with decreased mental status, patient was intubated on 01/24/2022 -currently on CMV mode, peep of 8, 30% FiO2, will wean FiO2 to maintain O2 sats greater than 92% -ABGs reviewed, -chest x-ray this morning:Small pleural effusions with stable bibasilar airspace opacities, atelectasis versus pneumonia. -patient was placed on sedation holiday and a weaning trial was attempted -patient failed weaning trial due to apnea -continue leave patient off sedation -continue bronchodilators -cultures have been negative -continue Zosyn and but discontinue vancomycin (01/24) -will continue to diurese patient today (2) Pneumonia: Qualifiers: Laterality: right Lung location: lower lobe of lung Pneumonia type: due to unspecified organism Qualified Code(s): J18.9 - Pneumonia, unspecified organism Code(s): J18.9 - Pneumonia, unspecified organism Status: Acute Assessment and Plan: Chest x-ray showed pneumonia, likely aspiration versus community-acquired -continue antibiotics as above (3) Chronic kidney disease (CKD): Qualifiers: Chronic kidney disease stage: stage 4 (severe) Qualified Code(s): N18.4 - Chronic kidney disease, stage 4 (severe) Code(s): N18.9 - Chronic kidney disease, unspecified Status: Acute Assessment and Plan: Acute on chronic kidney disease , unknown baseline creatinine -patient received adequate IV fluids -urine output has been adequate -Appreciate nephrology following the patient -urine electrolytes show a non pre renal picture -01/25/2022: Renal ultrasoundLimited study. Right renal cyst measuring 1.8 cm., left kidney is not visualized, no solid masses, hydronephrosis or stones -continue diuretics -continue to monitor urine output, renal function and electrolyte (4) Acute GI bleeding: Code(s): K92.2 - Gastrointestinal hemorrhage, unspecified Status: Acute Assessment and Plan: Patient presented with a hemoglobin of 6.9 on 01/22/2022 -received 2 units of packed RBCs on 01/24/2028 -INR 1.0 -positive Hemoccult -appreciate GI evaluation recommendation, no intervention at this time continue conservative treatment -hemoglobin is relatively stable post transfusion -patient on Protonix IV q.12 hours (5) Anemia: Qualifiers: Anemia type: unspecified type Qualified Code(s): D64.9 - Anemia, unspecified Code(s): D64.9 - Anemia, unspecified Status: Acute Assessment and Plan: As above (6) DM2 (diabetes mellitus, type 2): Code(s): E11.9 - Type 2 diabetes mellitus without complications Status: Acute Assessment and Plan: Sliding scale insulin Accu-Cheks (7) Chronic GERD: Code(s): K21.9 - Gastro-esophageal reflux disease without esophagitis Status: Acute Assessment and Plan: Continue PPI (8) Lung mass: Code(s): R91.8 - Other nonspecific abnormal finding of lung field Status: Acute Assessment and Plan: 01/22/2022: CT scan of the cervical spine showed Irregular shaped 2.1 cm left upper lobe mass, suspicious for bronchogenic carcinoma. -pulmonology has been consulted, awaiting recommendations (9) Swelling of lower extremity: Code(s): M79.89 - Other specified soft tissue disorders Status: Acute Assessment and Plan: Likely secondary to edema. Check Dopplers to rule out DVT Patient is getting diuretics
--- NOTE | 2022-01-28 14:12 | WPDGIPROGNO ---
Progress Note: A&P Assessment and Plan (1) Anemia: Code(s): D64.9 - Anemia, unspecified Status: Acute Assessment and Plan: Patient with chronic anemia. Appears to have microcytic indices. Stable since admission. No significant decline noted but likely this is a chronic anemia. Perhaps small Robson pain at associated with occult blood loss. Patient not well enough for invasive testing to evaluate this time. Continue to monitor closely (2) Occult blood in stools: Code(s): R19.5 - Other fecal abnormalities Status: Acute Assessment and Plan: no significant active bleeding. Occult blood in stools noted. Will continue monitor conservatively at this point. Patient has significant comorbid disease that preclude invasive testing at this time. (3) Respiratory failure: Code(s): J96.90 - Respiratory failure, unspecified, unspecified whether with hypoxia or hypercapnia Status: Acute (4) Lung mass: Code(s): R91.8 - Other nonspecific abnormal finding of lung field Status: Acute (5) Pneumonia: Qualifiers: Laterality: right Lung location: lower lobe of lung Pneumonia type: due to unspecified organism Qualified Code(s): J18.9 - Pneumonia, unspecified organism Code(s): J18.9 - Pneumonia, unspecified organism Status: Acute (6) Congestive heart failure: Code(s): I50.9 - Heart failure, unspecified Status: Acute Subjective Date/time seen: 01/28/22 14:12 Patient remains intubated on the ventilator in the ICU. No additional bleeding reported Review of Systems Review of Systems: ROS unobtainable: Yes unobtainable due to endotracheal tube Exam Narrative: patient on the ventilator, sedated. HEENT exam reveals no icterus. Abdomen soft no masses no organomegaly. Lungs with scattered rhonchi. Objective Data Vital Signs Vital Signs: Vital Signs - 24 hr 01/27/22 15:53 01/27/22 16:00 01/27/22 16:00 Temperature Pulse Rate 74 70 Respiratory Rate Blood Pressure Pulse Oximetry Oxygen Delivery Mechanical Ventilation Fraction of Inspired Oxygen 30 01/27/22 16:00 01/27/22 16:44 01/27/22 18:00 Temperature 97.3 F L Pulse Rate 70 69 67 Respiratory Rate 22 H Blood Pressure 128/53 L Pulse Oximetry 100 100 Oxygen Delivery Mechanical Ventilation Fraction of Inspired Oxygen 30 01/27/22 18:00 01/27/22 18:00 01/27/22 21:24 Temperature 96.9 F L 96.9 F L Pulse Rate 67 63 Respiratory Rate 22 H 22 H Blood Pressure 130/54 L Pulse Oximetry 99 Oxygen Delivery Fraction of Inspired Oxygen 01/27/22 21:26 01/27/22 20:00 01/27/22 20:00 Temperature 97.7 F Pulse Rate 63 62 Respiratory Rate 22 H Blood Pressure 122/55 L Pulse Oximetry 100 99 Oxygen Delivery Mechanical Ventilation Fraction of Inspired Oxygen 30 30 01/27/22 20:00 01/27/22 20:00 01/27/22 22:00 Temperature Pulse Rate 71 70 Respiratory Rate Blood Pressure Pulse Oximetry 98 Oxygen Delivery Mechanical Ventilation Fraction of Inspired Oxygen 01/27/22 22:00 01/28/22 00:00 01/28/22 00:00 Temperature 98.3 F 99 F Pulse Rate 65 76 Respiratory Rate 22 H 22 H Blood Pressure 134/58 L 133/60 Pulse Oximetry 98 100 Oxygen Delivery Fraction of Inspired Oxygen 30 01/28/22 00:00 01/28/22 00:00 01/28/22 02:00 Temperature Pulse Rate 78 71 Respiratory Rate Blood Pressure Pulse Oximetry 100 Oxygen Delivery Mechanical Ventilation Fraction of Inspired Oxygen 30 01/28/22 02:00 01/28/22 02:42 01/27/22 23:39 Temperature 98.9 F Pulse Rate 74 73 69 Respiratory Rate 23 H 22 H Blood Pressure 138/56 L Pulse Oximetry 100 100 Oxygen Delivery Mechanical Ventilation Fraction of Inspired Oxygen 30 01/28/22 02:46 01/27/22 21:37 01/28/22 04:00 Temperature Pulse Rate 73 68 Respiratory Rate 22 H Blood Pressure Pulse Oximetry 100 100 Oxygen De
--- NOTE | 2022-01-28 17:00 | PM.PNNEP ---
Progress Note: A&P Assessment and Plan (1) Chronic kidney disease (CKD): Qualifiers: Chronic kidney disease stage: stage 4 (severe) Qualified Code(s): N18.4 - Chronic kidney disease, stage 4 (severe) Code(s): N18.9 - Chronic kidney disease, unspecified Status: Acute Assessment and Plan: the patient has chronic kidney disease by history from [facility]. We do not have any baseline creatinine is. she apparently has stage 3/4 chronic kidney disease. Await labs. Her urine does show some protein but is otherwise bland. 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 Right kidney looks somewhat small at 9.4cm and has 1 cyst The patient does have diabetes and hypertension which are probably affecting the kidneys. her creatinine is stable. She probably has chronic kidney disease and is at baseline. (2) Respiratory failure with hypoxia and hypercapnia: Code(s): J96.91 - Respiratory failure, unspecified with hypoxia; J96.92 - Respiratory failure, unspecified with hypercapnia Status: Acute Assessment and Plan: The patient has respiratory failure. She is on the ventilator. Pulmonary has been consulted. I agree with the patient looks a little volume overloaded. She received Lasix yesterday. Yesterday her intake/ output was 2200 in and 1600 out. Overnight was 931 in and 2150 out. She seems to be responding to the diuretics. Will see how the creatinine looks tomorrow. (3) GI bleed: Code(s): K92.2 - Gastrointestinal hemorrhage, unspecified Status: Acute Assessment and Plan: The patient has guaiac-positive stools and a dropping hemoglobin. hemoglobin stable in the mid 8. GI has been consulted. (4) Hypertension: Code(s): I10 - Essential (primary) hypertension Status: Acute Assessment and Plan: Her blood pressure is under good control the systolic between 130 and 150. But mostly on the lower side The patient is getting diuretics now. The blood pressure may come down with this therapy. (5) DM2 (diabetes mellitus, type 2): Code(s): E11.9 - Type 2 diabetes mellitus without complications Status: Acute Assessment and Plan: The patient has diabetes. She is on insulin and sliding scale per hospitalist. (6) Anemia: Qualifiers: Anemia type: unspecified type Qualified Code(s): D64.9 - Anemia, unspecified Code(s): D64.9 - Anemia, unspecified Status: Acute Assessment and Plan: Hemoglobin was very low when she came in. She got some blood And it sarah to 10. Now stable in the mid 8 for the last couple of days. GI is on the case. (7) Lung mass: Code(s): R91.8 - Other nonspecific abnormal finding of lung field Status: Acute Assessment and Plan: She was noted to have a lung mass seen on her CT scan of the neck. Pulmonary has been consulted for this (8) Pneumonia: Qualifiers: Laterality: right Lung location: lower lobe of lung Pneumonia type: due to unspecified organism Qualified Code(s): J18.9 - Pneumonia, unspecified organism Code(s): J18.9 - Pneumonia, unspecified organism Status: Acute Assessment and Plan: the patient has some changes and her chest x-ray which may be consistent with pneumonia. She is on Zosyn Subjective Date/time seen: 01/28/22 17:00 Interval history: 01/26 Patient is on the ventilator. Sedated and comfortable 01/27 patient is on the ventilator. A little more interactive but I do not understand what she says. Her daughter Mary is in the room 01/28 Patient is on the vent. She looks comfortable. Her eyes are opened and she regards the examiner. No real communication. Exam Narrative: WDWN female on the ventilator sedated in NAD skin no rash head ncat lungs coarse upper airway noise bilaterally cor
[2022-01-28 18:11] LABS: Glucose Point of Care 235 mg/dl (65-105)
[2022-01-29] VITALS (21 sets, daily range): BP systolic 124–161; BP diastolic 55–86; PULSE 63–107; RESP 19–27; TEMP 35.8–37.1; O2SAT 95–100
[2022-01-29 00:33] LABS: Glucose Point of Care 242 mg/dl (65-105)
[2022-01-29 05:40] LABS: Basophils Percent Auto 0.5 % (0.2-1.2); Eosinophils Absolute Auto 0.1 K/mm3 (0-0.3); Eosinophils Percent Auto 2.2 % (0-4.4); Hematocrit 25.5 % (37.0-47.0); Hemoglobin 8.3 g/dL (12.0-15.0); Immature Granulocyte Absolute 0.03 K/mm3 (0.00-0.031); Immature Granulocyte Percent A 0.5 % (0-0.5); Lymphocytes Absolute Auto 0.44 K/mm3 (0.9-3.2); Lymphocytes Percent Auto 6.8 % (18.3-44.2); Mean Corpuscular HGB Conc 32.5 g/dl (32-36); Mean Corpuscular Hemoglobin 25.2 pg (26-34); Mean Corpuscular Volume 77.3 fl (80-100); Mean Platelet Volume 10.9 fl (7.4-10.4); Monocytes Absolute Auto 0.6 K/mm3 (0.1-0.6); Monocytes Percent Auto 9.5 % (2.6-8.5); Neutrophils Absolute Auto 5.2 K/mm3 (1.3-6.7); Neutrophils Percent Auto 80.5 % (45.5-73.1); Platelet Count Result 180 k/mm3 (150-375); Red Cell Distribution Width 22.3 % (11.5-14.5); White Blood Count 6.4 K/mm3 (4.5-10.0)
[2022-01-29 05:53] LABS: Albumin Level 3.3 g/dL (3.5-5.1); Anion Gap 5 mmol/L (8-16); Blood Urea Nitrogen 48 mg/dL (7-17); Calcium 8.1 mg/dL (8.4-10.2); Carbon Dioxide 29 mmol/L (22-30); Chloride 106 mmol/L (98-107); Estimated CRCL calculation 15 ml/min; Estimated Glomerular Filt Rate 21; Glucose 197 mg/dL (65-110); Phosphorus 4.5 mg/dL (2.5-4.5); Potassium 4.2 mmol/L (3.4-5.0); Sodium 140 mmol/L (137-145)
[2022-01-29] MEDS: CENTRAL LINE FLUSH 10 ML IV PUSH ×4 (06:18→20:32)
[2022-01-29 06:42] LABS: Alveolar/Arterial O2 Gradient 66.4 mmHg; Base Excess ABG 1.7 mEq/l (+/-2.0); Carboxyhemoglobin 0.3 % THb (0-2.0); Fractional Inspired Oxygen 30 %; Methemoglobin ABG 0.3 %THb (0-1.5); Oxygen Content ABG 12.1 %vol (16.0-22.0); Oxygen Saturation ABG 97.1 % (95.0-100.0); Oxyhemoglobin 95.8 % THb (90.0-100.0); PCO2 ABG 45.7 mmHg (35.0-45.0); PO2 ABG 93.8 mmHg (80.0-100.0); PO2 FiO2 Ratio Arterial Blood 3.13 %; Reduced Hemoglobin 3.6 %THb (0-5.0); Total Hemoglobin 8.9 g/dL (12.0-18.0); pH ABG 7.389 (7.350-7.450)
[2022-01-29 06:55] LABS: Device VENTILATOR; Modified Allen's Test Pass; Site Drawn RIGHT RADIAL
[2022-01-29 06:56] LABS: Arterial Blood Gas PEEP 8 cmH2O; Arterial Blood Gas Tidal Volume 400 ml; Arterial Blood Gas Vent Mode CMV; Arterial Blood Gas Ventilator rate 22 /MIN
[2022-01-29 07:04] LABS: Anisocytosis 2+ (NORMAL); Platelet Estimate Adequate (Adequate)
[2022-01-29 07:05] LABS: Target Cells 3+ (NORMAL)
[2022-01-29 07:06] LABS: Schistocytes None Seen (NORMAL)
[2022-01-29] MEDS: PANTOPRAZOLE SODIUM IV 40 MG VIAL IV PUSH ×2 (07:54→17:37)
[2022-01-29] MEDS: MINERAL OIL/WHITE PETROLATUM OINTMENT 1 APPLIC EACH EYE (07:55)
[2022-01-29] MEDS: FUROSEMIDE INJ 40 MG/4 ML VIAL IV PUSH ×2 (07:55→17:37)
[2022-01-29] MEDS: IPRATROPIUM BR 0.02% INH SOLN 0.5 MG/2.5 ML VIAL INHALATION ×3 (08:30→20:00)
[2022-01-29] MEDS: ALBUTEROL SULFATE NEB 2.5 MG/3 ML INH 5 MG INHALATION ×3 (08:30→20:00)
--- NOTE | 2022-01-29 09:33 | WPDINTPN ---
Progress Note: A&P Assessment and Plan (1) Respiratory failure with hypoxia and hypercapnia: Code(s): J96.91 - Respiratory failure, unspecified with hypoxia; J96.92 - Respiratory failure, unspecified with hypercapnia Status: Acute Assessment and Plan: Patient with acute hypoxic and hypercapnic respiratory failure likely related to the obstructive sleep apnea, pneumonia, aspiration, silently aspirating. - SARS-CoV-2 PCR, influenza A and B were negative on admission -patient was initially placed on BiPAP, blood gases was significantly worse with decreased mental status, patient was intubated on 01/24/2022 -currently on CMV mode, peep of 8, 30% FiO2, will wean FiO2 to maintain O2 sats greater than 92% -ABGs reviewed, -chest x-ray this morning:IMPRESSION: 1. Opacities in the right mid to lower and left lower lung zones which could represent atelectasis or pneumonia. 2. Small right pleural effusion. 3. Cardiomegaly. -patient failed weaning trial yesterday due to apnea. -today again placed patient not trial and she had low tidal volumes and high RSBI. I increased her pressure support to 10/5 which gave me acceptable tidal volumes and rate. Continue as tolerated. Will try to wean down pressure support -continue to leave patient off sedation -continue bronchodilators -cultures have been negative -continue Zosyn and but discontinue vancomycin (01/24) -will continue to diurese patient today (2) Pneumonia: Qualifiers: Laterality: right Lung location: lower lobe of lung Pneumonia type: due to unspecified organism Qualified Code(s): J18.9 - Pneumonia, unspecified organism Code(s): J18.9 - Pneumonia, unspecified organism Status: Acute Assessment and Plan: Chest x-ray showed pneumonia, likely aspiration versus community-acquired -continue antibiotics as above (3) Chronic kidney disease (CKD): Qualifiers: Chronic kidney disease stage: stage 4 (severe) Qualified Code(s): N18.4 - Chronic kidney disease, stage 4 (severe) Code(s): N18.9 - Chronic kidney disease, unspecified Status: Acute Assessment and Plan: Acute on chronic kidney disease , unknown baseline creatinine -patient received adequate IV fluids -urine output has been adequate -Appreciate nephrology following the patient -urine electrolytes show a non pre renal picture -01/25/2022: Renal ultrasound Limited study. Right renal cyst measuring 1.8 cm., left kidney is not visualized, no solid masses, hydronephrosis or stones -continue diuretics -continue to monitor urine output, renal function and electrolyte (4) Acute GI bleeding: Code(s): K92.2 - Gastrointestinal hemorrhage, unspecified Status: Acute Assessment and Plan: Patient presented with a hemoglobin of 6.9 on 01/22/2022 -received 2 units of packed RBCs on 01/24/2028 -INR 1.0 -positive Hemoccult -appreciate GI evaluation recommendation, no intervention at this time continue conservative treatment -hemoglobin is relatively stable post transfusion -patient on Protonix IV q.12 hours (5) Anemia: Qualifiers: Anemia type: unspecified type Qualified Code(s): D64.9 - Anemia, unspecified Code(s): D64.9 - Anemia, unspecified Status: Acute Assessment and Plan: As above (6) DM2 (diabetes mellitus, type 2): Code(s): E11.9 - Type 2 diabetes mellitus without complications Status: Acute Assessment and Plan: Sliding scale insulin Accu-Cheks (7) Chronic GERD: Code(s): K21.9 - Gastro-esophageal reflux disease without esophagitis Status: Acute Assessment and Plan: Continue PPI (8) Lung mass: Code(s): R91.8 - Other nonspecific abnormal finding of lung field Status: Acute Assessment and Plan: 01/22/2022: CT scan of the cervical spine showed Irregular shaped 2.1 cm left upper lobe mass, suspicious for bronchogenic carcinoma. -pulmonology has been consulted, await
--- NOTE | 2022-01-29 10:47 | P.CDI_ITS ---
CDI Query Clarification Request Chronic systolic congestive Heart failure <Alvaro Galvez MD - Last Filed: 01/30/22 09:33> Clarified Diagnosis Clarified Diagnosis: Elevated BNP on 01/22/22 lab work. Heart Failure noted on Assessment and plan. Pt with documented edema. Pt receiving Lasix Please specify type and acuity of heart failure if known. * Acute * Chronic * Acute on Chronic * Unknown * Systolic * Diastolic * Combined Systolic and Diastolic * Unknown <Kaelyn Cook RN - Last Filed: 01/29/22 10:51>
[2022-01-29 11:54] LABS: Glucose Point of Care 173 mg/dl (65-105)
--- NOTE | 2022-01-29 11:54 | PCNFU ---
Nutrition Follow-Up Complete: Inadequate energy intake related to NPO status, mechanical ventilation as evidenced by need for full tube feeding. goal: Meet estimated nutrition needs Patient is meeting current goal. We will continue current goal. Pt current nutrition is NPO. Last recorded weight is 81.18 kg. Bowel Motility:+BM reported 01/29 Labs Reviewed:Glu 197, BUN 48, Cr 2.6,Alb 3.3 Meds Noted:Lasix, NovoLog, Protonix, Atrovent Skin: WNL Additional Notes: Patient extubated this morning. Cpap today. No nutrition at this time. Monitoring labs, tolerance, weights, meds, skin, plan of care. Follow daily in ICU. Follow up every 3 days.
[2022-01-29 12:19] LABS: Alveolar/Arterial O2 Gradient 83.9 mmHg; Base Excess ABG 1.2 mEq/l (+/-2.0); Fractional Inspired Oxygen 30 %; HCO3 ABG 27.1 mEq/l (22.0-26.0); Oxygen Content ABG 13.1 %vol (16.0-22.0); Oxygen Saturation ABG 93.8 % (95.0-100.0); Oxyhemoglobin 92.6 % THb (90.0-100.0); PCO2 ABG 49.1 mmHg (35.0-45.0); PO2 ABG 72.3 mmHg (80.0-100.0); PO2 FiO2 Ratio Arterial Blood 2.41 %
[2022-01-29 12:20] LABS: Device VENTILATOR; Modified Allen's Test Pass; Site Drawn LEFT RADIAL
[2022-01-29 12:21] LABS: Arterial Blood Gas PEEP 5 cmH2O; Arterial Blood Gas Pressure Support 5 cmH2O; Arterial Blood Gas Vent Mode PRESSURE SUPPORT
--- NOTE | 2022-01-29 12:45 | PM.PNNEP ---
Progress Note: A&P Assessment and Plan (1) Chronic kidney disease (CKD): Qualifiers: Chronic kidney disease stage: stage 4 (severe) Qualified Code(s): N18.4 - Chronic kidney disease, stage 4 (severe) Code(s): N18.9 - Chronic kidney disease, unspecified Status: Acute Assessment and Plan: the patient has chronic kidney disease by history from [facility]. We do not have any baseline creatinine. she apparently has stage 3/4 chronic kidney disease. Await labs. Her urine does show some protein but is otherwise bland. 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 Right kidney looks somewhat small at 9.4cm and has 1 cyst The patient does have diabetes and hypertension which are probably affecting the kidneys. her creatinine is stable in the mid to upper 2s. She probably has chronic kidney disease and is at baseline. (2) Respiratory failure with hypoxia and hypercapnia: Code(s): J96.91 - Respiratory failure, unspecified with hypoxia; J96.92 - Respiratory failure, unspecified with hypercapnia Status: Acute Assessment and Plan: The patient has respiratory failure. She is on the ventilator. Pulmonary has been consulted. I agree with the patient looks a little volume overloaded. She is on diuretics. Intake/ output is [id number] negative. Overnight it was positive for [id number]. Will increase diuretics. Follow the creatinine to see how the kidneys tolerate the diuretics. (3) GI bleed: Code(s): K92.2 - Gastrointestinal hemorrhage, unspecified Status: Acute Assessment and Plan: The patient has guaiac-positive stools and a dropping hemoglobin. hemoglobin stable in the mid 8. GI has been consulted. (4) Hypertension: Code(s): I10 - Essential (primary) hypertension Status: Acute Assessment and Plan: Her blood pressure is under good control the systolic between 130 and 150. But mostly on the lower side The patient is getting diuretics now. The blood pressure may come down with this therapy. (5) DM2 (diabetes mellitus, type 2): Code(s): E11.9 - Type 2 diabetes mellitus without complications Status: Acute Assessment and Plan: The patient has diabetes. She is on insulin and sliding scale per hospitalist. (6) Anemia: Qualifiers: Anemia type: unspecified type Qualified Code(s): D64.9 - Anemia, unspecified Code(s): D64.9 - Anemia, unspecified Status: Acute Assessment and Plan: Hemoglobin is stable in the 8. (7) Lung mass: Code(s): R91.8 - Other nonspecific abnormal finding of lung field Status: Acute Assessment and Plan: She was noted to have a lung mass seen on her CT scan of the neck. Pulmonary has been consulted for this (8) Pneumonia: Qualifiers: Laterality: right Lung location: lower lobe of lung Pneumonia type: due to unspecified organism Qualified Code(s): J18.9 - Pneumonia, unspecified organism Code(s): J18.9 - Pneumonia, unspecified organism Status: Acute Assessment and Plan: the patient has some changes and her chest x-ray which may be consistent with pneumonia. She is on Zosyn Subjective Date/time seen: 01/29/22 12:45 Interval history: 01/26 Patient is on the ventilator. Sedated and comfortable 01/27 patient is on the ventilator. A little more interactive but I do not understand what she says. Her daughter Mary is in the room 01/28 Patient is on the vent. She looks comfortable. Her eyes are opened and she regards the examiner. No real communication. 01/29 Daughter in the room. We discussed the case. Shanti is more awake today. She makes eye contact. She hold my hand. Exam Narrative: WDWN female on the ventilator sedated in NAD skin no rash or subcu nodules head ncat lungs coarse upper airway noise
[2022-01-29 14:55] LABS: IFOB Positive Control Positive; Immunochemical Fecal Occult Bl Negative (N)
[2022-01-29] MEDS: INSULIN ASPART (*BKC) 100 UNITS/ML SUB-Q (17:41)
[2022-01-29 17:43] LABS: Glucose Point of Care 221 mg/dl (65-105)
--- NOTE | 2022-01-29 20:27 | PM.IMPN ---
Progress Note: A&P Assessment and Plan (1) Respiratory failure with hypoxia and hypercapnia: Code(s): J96.91 - Respiratory failure, unspecified with hypoxia; J96.92 - Respiratory failure, unspecified with hypercapnia Status: Acute Assessment and Plan: Patient with acute hypoxic and hypercapnic respiratory failure likely related to the obstructive sleep apnea, pneumonia, aspiration, silently aspirating. - SARS-CoV-2 PCR, influenza A and B were negative on admission -patient was initially placed on BiPAP, blood gases was significantly worse with decreased mental status, patient was intubated on 01/24/2022 -currently on CMV mode, peep of 8, 30% FiO2, will wean FiO2 to maintain O2 sats greater than 92% -ABGs reviewed, -cultures have been negative -chest x-ray this morning:IMPRESSION: 1. Opacities in the right mid to lower and left lower lung zones which could represent atelectasis or pneumonia. 2. Small right pleural effusion. 3. Cardiomegaly. -patient failed weaning trial yesterday but able to be extubated today -continue bronchodilators -continue Zosyn but discontinue vancomycin (01/24) -continue Lasix IV (2) Pneumonia: Qualifiers: Laterality: right Lung location: lower lobe of lung Pneumonia type: due to unspecified organism Qualified Code(s): J18.9 - Pneumonia, unspecified organism Code(s): J18.9 - Pneumonia, unspecified organism Status: Acute Assessment and Plan: Chest x-ray showed pneumonia, likely aspiration versus community-acquired -continue antibiotics as above -ST to see again (3) Chronic kidney disease (CKD): Qualifiers: Chronic kidney disease stage: stage 4 (severe) Qualified Code(s): N18.4 - Chronic kidney disease, stage 4 (severe) Code(s): N18.9 - Chronic kidney disease, unspecified Status: Acute Assessment and Plan: Acute on chronic kidney disease , unknown baseline creatinine -patient received adequate IV fluids -urine output has been adequate -Appreciate nephrology following the patient -urine electrolytes show a non pre renal picture -01/25/2022: Renal ultrasound Limited study. Right renal cyst measuring 1.8 cm., left kidney is not visualized, no solid masses, hydronephrosis or stones -continue diuretics -continue to monitor urine output, renal function and electrolyte (4) Acute GI bleeding: Code(s): K92.2 - Gastrointestinal hemorrhage, unspecified Status: Acute Assessment and Plan: Patient presented with a hemoglobin of 6.9 on 01/22/2022 -received 2 units of packed RBCs on 01/24/2028 -INR 1.0 -positive Hemoccult in ED but guaiac negative on repeat -appreciate GI evaluation recommendation, no intervention at this time continue conservative treatment -hemoglobin is relatively stable post transfusion -patient on Protonix IV q.12 hours (5) Anemia: Qualifiers: Anemia type: unspecified type Qualified Code(s): D64.9 - Anemia, unspecified Code(s): D64.9 - Anemia, unspecified Status: Acute Assessment and Plan: As above (6) Congestive heart failure: Code(s): I50.9 - Heart failure, unspecified Status: Acute Assessment and Plan: Echo showed ? 1. Technically difficult study with limited views. ? 2. Left ventricular systolic function is mildly reduced, estimated at 45-50%. ? 3. Right ventricular systolic function is normal. ? 4. Left atrial chamber dimension is mildly enlarged. ? 5. There is mild tricuspid valve regurgitation. ? 6. Dilated inferior vena cava with <50% collapse upon inspiration consistent with elevated right atrial pressure. Continue Lasix (7) DM2 (diabetes mellitus, type 2): Code(s): E11.9 - Type 2 diabetes mellitus without complications Status: Acute Assessment and Plan: A1c 7.2. The patient's blood glucose was reviewed on 01/29 Glucose remains elevated Continue AccuCheks covering with sliding scale. Hypoglycem
[2022-01-30] VITALS (14 sets, daily range): BP systolic 132–160; BP diastolic 50–96; PULSE 71–89; RESP 18–27; TEMP 36.2–36.8; O2SAT 96–100
[2022-01-30] MEDS: ALBUTEROL SULFATE NEB 2.5 MG/3 ML INH 5 MG INHALATION ×3 (01:55→14:56)
[2022-01-30] MEDS: IPRATROPIUM BR 0.02% INH SOLN 0.5 MG/2.5 ML VIAL INHALATION ×3 (01:55→14:56)
[2022-01-30] MEDS: CENTRAL LINE FLUSH 10 ML IV PUSH ×4 (05:17→22:50)
[2022-01-30 05:18] LABS: Albumin Level 3.5 g/dL (3.5-5.1); Anion Gap 6 mmol/L (8-16); Blood Urea Nitrogen 54 mg/dL (7-17); Calcium 8.1 mg/dL (8.4-10.2); Carbon Dioxide 29 mmol/L (22-30); Chloride 104 mmol/L (98-107); Estimated CRCL calculation 14 ml/min; Estimated Glomerular Filt Rate 20; Glucose 119 mg/dL (65-110); Magnesium 2.1 mg/dL (1.6-2.3); Phosphorus 5.1 mg/dL (2.5-4.5); Potassium 3.8 mmol/L (3.4-5.0); Sodium 139 mmol/L (137-145)
[2022-01-30 05:36] LABS: Glucose Point of Care 123 mg/dl (65-105)
[2022-01-30 05:52] LABS: Basophils Percent Auto 0.5 % (0.2-1.2); Eosinophils Absolute Auto 0.2 K/mm3 (0-0.3); Eosinophils Percent Auto 3.7 % (0-4.4); Hemoglobin 8.2 g/dL (12.0-15.0); Immature Granulocyte Absolute 0.02 K/mm3 (0.00-0.031); Immature Granulocyte Percent A 0.3 % (0-0.5); Lymphocytes Absolute Auto 0.78 K/mm3 (0.9-3.2); Lymphocytes Percent Auto 13.2 % (18.3-44.2); Mean Corpuscular HGB Conc 31.5 g/dl (32-36); Mean Corpuscular Volume 79.3 fl (80-100); Mean Platelet Volume 11.3 fl (7.4-10.4); Monocytes Absolute Auto 0.7 K/mm3 (0.1-0.6); Monocytes Percent Auto 11.5 % (2.6-8.5); Neutrophils Absolute Auto 4.2 K/mm3 (1.3-6.7); Neutrophils Percent Auto 70.8 % (45.5-73.1); Platelet Count Result 195 k/mm3 (150-375); Red Blood Count 3.28 M/mm3 (4.2-5.4); Red Cell Distribution Width 22.8 % (11.5-14.5); White Blood Count 5.9 K/mm3 (4.5-10.0)
[2022-01-30 06:11] LABS: Glucose Point of Care 176 mg/dl (65-105)
[2022-01-30 06:16] LABS: Hypochromasia 3+ (NORMAL); Platelet Estimate Adequate (Adequate); Target Cells 2+ (NORMAL)
[2022-01-30 06:17] LABS: Schistocytes None Seen (NORMAL)
[2022-01-30 06:18] LABS: Helmet Cells 2+ (NORMAL)
[2022-01-30] MEDS: PANTOPRAZOLE SODIUM IV 40 MG VIAL IV PUSH ×2 (09:28→16:54)
[2022-01-30] MEDS: MINERAL OIL/WHITE PETROLATUM OINTMENT 1 APPLIC EACH EYE ×2 (09:28→21:37)
[2022-01-30] MEDS: FUROSEMIDE INJ 40 MG/4 ML VIAL IV PUSH ×2 (09:28→16:54)
--- NOTE | 2022-01-30 09:33 | WPDINTPN ---
Progress Note: A&P Assessment and Plan (1) Respiratory failure with hypoxia and hypercapnia: Code(s): J96.91 - Respiratory failure, unspecified with hypoxia; J96.92 - Respiratory failure, unspecified with hypercapnia Status: Acute Assessment and Plan: Patient with acute hypoxic and hypercapnic respiratory failure likely related to the obstructive sleep apnea, pneumonia, aspiration, silently aspirating. - SARS-CoV-2 PCR, influenza A and B were negative on admission -patient was initially placed on BiPAP, blood gases was significantly worse with decreased mental status, patient was intubated on 01/24/202201/29 extubated after a successful weaning trial. She is maintaining her oxygenation and now is on room air with no respiratory distress. Incentive spirometry PT OT Up in chair Chest x-ray reviewed -continue bronchodilators -cultures have been negative -continue Zosyn - vancomycin (01/24) discontinued on 01/29 -will continue to diurese patient today (2) Pneumonia: Qualifiers: Laterality: right Lung location: lower lobe of lung Pneumonia type: due to unspecified organism Qualified Code(s): J18.9 - Pneumonia, unspecified organism Code(s): J18.9 - Pneumonia, unspecified organism Status: Acute Assessment and Plan: Chest x-ray showed pneumonia, likely aspiration versus community-acquired -continue antibiotics as above (3) Chronic kidney disease (CKD): Qualifiers: Chronic kidney disease stage: stage 4 (severe) Qualified Code(s): N18.4 - Chronic kidney disease, stage 4 (severe) Code(s): N18.9 - Chronic kidney disease, unspecified Status: Acute Assessment and Plan: Acute on chronic kidney disease , unknown baseline creatinine -patient received adequate IV fluids -urine output has been adequate -Appreciate nephrology following the patient -urine electrolytes show a non pre renal picture -01/25/2022: Renal ultrasound Limited study. Right renal cyst measuring 1.8 cm., left kidney is not visualized, no solid masses, hydronephrosis or stones -continue diuretics -continue to monitor urine output, renal function and electrolyte (4) Acute GI bleeding: Code(s): K92.2 - Gastrointestinal hemorrhage, unspecified Status: Acute Assessment and Plan: Patient presented with a hemoglobin of 6.9 on 01/22/2022 -received 2 units of packed RBCs on 01/24/2028 -INR 1.0 -positive Hemoccult -appreciate GI evaluation recommendation, no intervention at this time continue conservative treatment -hemoglobin is relatively stable post transfusion -patient on Protonix IV q.12 hours (5) Anemia: Qualifiers: Anemia type: unspecified type Qualified Code(s): D64.9 - Anemia, unspecified Code(s): D64.9 - Anemia, unspecified Status: Acute Assessment and Plan: As above (6) DM2 (diabetes mellitus, type 2): Code(s): E11.9 - Type 2 diabetes mellitus without complications Status: Acute Assessment and Plan: Sliding scale insulin Accu-Cheks (7) Chronic GERD: Code(s): K21.9 - Gastro-esophageal reflux disease without esophagitis Status: Acute Assessment and Plan: Continue PPI (8) Lung mass: Code(s): R91.8 - Other nonspecific abnormal finding of lung field Status: Acute Assessment and Plan: 01/22/2022: CT scan of the cervical spine showed Irregular shaped 2.1 cm left upper lobe mass, suspicious for bronchogenic carcinoma. -pulmonology has been consulted, awaiting recommendations (9) Swelling of lower extremity: Code(s): M79.89 - Other specified soft tissue disorders Status: Acute Assessment and Plan: Likely secondary to edema. Dopplers to rule out DVT were negative Patient is getting diuretics (10) Congestive heart failure: Code(s): I50.9 - Heart failure, unspecified Status: Acute Assessment and Plan: Echo showed Summary ? 1. Technically dif
--- NOTE | 2022-01-30 09:33 | PCSTNOTE ---
Please refer to the Bedside Swallow Evaluation in the EMR. Please note, silent aspiration cannot be ruled out at bedside. A Modified Barium Swallow Study is recommended to determine pathophysiology and safe oral diet if appropriate.
--- NOTE | 2022-01-30 11:51 | PM.PNNEP ---
Progress Note: A&P Assessment and Plan (1) Chronic kidney disease (CKD): Qualifiers: Chronic kidney disease stage: stage 4 (severe) Qualified Code(s): N18.4 - Chronic kidney disease, stage 4 (severe) Code(s): N18.9 - Chronic kidney disease, unspecified Status: Acute Assessment and Plan: the patient has chronic kidney disease by history from [facility]. We do not have any baseline creatinine. she apparently has stage 3/4 chronic kidney disease. Await labs. Her urine does show some protein but is otherwise bland. 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 Right kidney looks somewhat small at 9.4cm and has 1 cyst The patient does have diabetes and hypertension which are probably affecting the kidneys. her creatinine is stable in the mid to upper 2s. She probably has chronic kidney disease and is at baseline. (2) Respiratory failure with hypoxia and hypercapnia: Code(s): J96.91 - Respiratory failure, unspecified with hypoxia; J96.92 - Respiratory failure, unspecified with hypercapnia Status: Acute Assessment and Plan: The patient has respiratory failure. She is on the ventilator. Pulmonary has been consulted. I agree with the patient looks a little volume overloaded. She is on diuretics. Intake/output is negative. Continue diuretics (3) GI bleed: Code(s): K92.2 - Gastrointestinal hemorrhage, unspecified Status: Acute Assessment and Plan: The patient has guaiac-positive stools and a dropping hemoglobin. hemoglobin stable in the mid 8. GI has been consulted. they are waiting for her to be more stable to do any procedures. (4) Hypertension: Code(s): I10 - Essential (primary) hypertension Status: Acute Assessment and Plan: Her blood pressure is Mostly between 130 and 150. The patient is getting diuretics now. The blood pressure may come down with this therapy. (5) DM2 (diabetes mellitus, type 2): Code(s): E11.9 - Type 2 diabetes mellitus without complications Status: Acute Assessment and Plan: The patient has diabetes. She is on insulin and sliding scale per hospitalist. (6) Anemia: Qualifiers: Anemia type: unspecified type Qualified Code(s): D64.9 - Anemia, unspecified Code(s): D64.9 - Anemia, unspecified Status: Acute Assessment and Plan: Hemoglobin is stable in the 8s. (7) Lung mass: Code(s): R91.8 - Other nonspecific abnormal finding of lung field Status: Acute Assessment and Plan: She was noted to have a lung mass seen on her CT scan of the neck. Pulmonary has been consulted for this (8) Pneumonia: Qualifiers: Laterality: right Lung location: lower lobe of lung Pneumonia type: due to unspecified organism Qualified Code(s): J18.9 - Pneumonia, unspecified organism Code(s): J18.9 - Pneumonia, unspecified organism Status: Acute Assessment and Plan: the patient has some changes and her chest x-ray which may be consistent with pneumonia. She is on Zosyn Subjective Date/time seen: 01/30/22 11:51 Interval history: 01/26 Patient is on the ventilator. Sedated and comfortable 01/27 patient is on the ventilator. A little more interactive but I do not understand what she says. Her daughter Mary is in the room 01/28 Patient is on the vent. She looks comfortable. Her eyes are opened and she regards the examiner. No real communication. 01/29 Daughter in the room. We discussed the case. Shanti is more awake today. She makes eye contact. She hold my hand. 01/30 Awake and conversive. Was extubated. She denies any chest pain or shortness of breath Exam Narrative: WDWN female breathing comfortably in bed. skin no rash or subcu nodules head ncat lungs coarse upper airway noise amilcar
[2022-01-30] MEDS: INSULIN ASPART (*BKC) 100 UNITS/ML SUB-Q (12:03)
[2022-01-30 12:21] LABS: Glucose Point of Care 211 mg/dl (65-105)
--- NOTE | 2022-01-30 12:33 | PCSTNOTE ---
Please refer to the Modified Barium Swallow Evaluation in the EMR.
--- NOTE | 2022-01-30 16:03 | PCPTNOTE ---
Patient has physical therapy orders, but is still on bedrest activity orders.
[2022-01-30 17:03] LABS: Glucose Point of Care 132 mg/dl (65-105)
--- NOTE | 2022-01-30 18:24 | PC.NURSE ---
Pt's daughter, Mary Snider, asked to speak to me in private immediately after pt arrived on the floor from ICU. She wanted to inform me that 1) pt is NOT to receive any type of psych med, specifically Ativan, as Mary is convinced that is what led to pt's deterioration and need to be sent to ICU. Mary stated that if pt becomes restless a/o agitated a/o begins trying to pull things out, we are to call Mary at any time and she will speak with pt and come sit with pt so that psych meds are not given to pt. Second, Mary explained that pt has always been very strong willed and needs to have things explained and to feel respected in order to cooperate and comply; failure to make pt feel respected and strong-arming pt will only result in further resistance include verbal abuse and aggression from pt. If, however, pt feels respected and heard, according to Mary, she will remain sweet and compliant even though she has short term memory and cognitive/comprehension problems presently. Third, Mary explained to me that most of pt's life she was told that her date of was 1935 but it wasn't until later in life when an actual copy of the certificate was obtained that pt learned her date of was listed as 1935. According to Mary, this was because pt was birthed at home and the product transfer pumper/employee representative didn't arrive until days after pt as born and then put an entirely different day down than what was told to her as to pt's actual date of . Mary was concerned that if pt is asked her date of and she states [birth year] that we would think she has dementia and give her psych meds because the med recs state [birth year]. I assured her that I would document our conversation as well as passing this information along to the night nurse.
[2022-01-30 18:40] LABS: Glucose Point of Care 157 mg/dl (65-105)
--- NOTE | 2022-01-30 18:43 | PC.NURSE ---
Pt transferred to [facility] with belongings. Daughter at bedside. Pt and daughter oriented to room, and call light system. Bedside shift report given to Rosa. All questions were answered.
--- NOTE | 2022-01-30 19:18 | PM.IMPN ---
Progress Note: A&P Assessment and Plan (1) Respiratory failure with hypoxia and hypercapnia: Code(s): J96.91 - Respiratory failure, unspecified with hypoxia; J96.92 - Respiratory failure, unspecified with hypercapnia Status: Acute Assessment and Plan: Patient with acute hypoxic and hypercapnic respiratory failure likely related to the obstructive sleep apnea, aspiration pneumonia and aspiration pneumonitis. -COVID, influenza negative -patient was initially placed on BiPAP but ABG worsened requiring intubation 01/24/2022 -BCx have been negative -patient able to be extubated 01/29 -chest x-ray this morning showing improved airspace opacities. -continue bronchodilators but decreased dose -continue Zosyn; vancomycin stopped 01/24 -continue Lasix IV per nephrology (2) Pneumonia: Qualifiers: Laterality: right Lung location: lower lobe of lung Pneumonia type: due to unspecified organism Qualified Code(s): J18.9 - Pneumonia, unspecified organism Code(s): J18.9 - Pneumonia, unspecified organism Status: Acute Assessment and Plan: Chest x-ray showed pneumonia, likely aspiration versus community-acquired -no fevers, CXR improved and WBC normal -continue antibiotics as above -ST consulted and MBS ordered -diet adjusted per speech therapy direction (3) Chronic kidney disease (CKD): Qualifiers: Chronic kidney disease stage: stage 4 (severe) Qualified Code(s): N18.4 - Chronic kidney disease, stage 4 (severe) Code(s): N18.9 - Chronic kidney disease, unspecified Status: Acute Assessment and Plan: VLADIMIR with CKD with unknown baseline creatinine -patient received adequate IV fluids -urine output has been adequate -Appreciate nephrology following the patient -urine electrolytes show a non pre renal picture -Renal US showing right renal cyst but left not visualized. -continue to monitor urine output, renal function and electrolyte -continue Lasix (4) Acute GI bleeding: Code(s): K92.2 - Gastrointestinal hemorrhage, unspecified Status: Acute Assessment and Plan: Patient presented with a hemoglobin of 6.9 on 01/22 -received 2 units of packed RBCs on 01/23 -positive Hemoccult in ED but guaiac negative on repeat -appreciate GI evaluation recommendation, no intervention at this time continue conservative treatment -hemoglobin is relatively stable post transfusion -patient on Protonix IV q.12 hours (5) Anemia: Qualifiers: Anemia type: unspecified type Qualified Code(s): D64.9 - Anemia, unspecified Code(s): D64.9 - Anemia, unspecified Status: Acute Assessment and Plan: As above (6) Congestive heart failure: Code(s): I50.9 - Heart failure, unspecified Status: Acute Assessment and Plan: Echo showed ? 1. Technically difficult study with limited views. ? 2. Left ventricular systolic function is mildly reduced, estimated at 45-50%. ? 3. Right ventricular systolic function is normal. ? 4. Left atrial chamber dimension is mildly enlarged. ? 5. There is mild tricuspid valve regurgitation. ? 6. Dilated inferior vena cava with <50% collapse upon inspiration consistent with elevated right atrial pressure. Continue Lasix (7) DM2 (diabetes mellitus, type 2): Code(s): E11.9 - Type 2 diabetes mellitus without complications Status: Acute Assessment and Plan: A1c 7.2. The patient's blood glucose was reviewed on 01/30 Glucose better controlled Continue AccuCheks covering with sliding scale. Hypoglycemia protocol available as needed. Continue current medications. (8) Lung mass: Code(s): R91.8 - Other nonspecific abnormal finding of lung field Status: Acute Assessment and Plan: 01/22/2022: CT scan of the cervical spine showed Irregular shaped 2.1 cm left upper lobe mass, suspicious for bronchogenic carcinoma. -pulmonology has been consulted, awaiting r
[2022-01-30 22:33] LABS: Glucose Point of Care 152 mg/dl (65-105)
[2022-01-31] VITALS (11 sets, daily range): BP systolic 152–169; BP diastolic 62–71; PULSE 72–90; RESP 20–25; TEMP 36.1–36.6; O2SAT 92–100
[2022-01-31] MEDS: CENTRAL LINE FLUSH 10 ML IV PUSH ×2 (06:45→09:29)
[2022-01-31 08:16] LABS: Glucose Point of Care 102 mg/dl (65-105)
[2022-01-31] MEDS: IPRATROPIUM BR 0.02% INH SOLN 0.5 MG/2.5 ML VIAL INHALATION ×3 (08:26→20:00)
[2022-01-31] MEDS: FLUTICASONE/SALMETEROL 115-21 MCG INHALER 1 PUFF 2 PUFF INHALATION ×2 (08:26→20:00)
[2022-01-31] MEDS: ALBUTEROL SULFATE NEB 2.5 MG/3 ML INH 5 MG INHALATION ×3 (08:27→20:00)
[2022-01-31 08:42] LABS: Hemoglobin 9.2 g/dL (12.0-15.0); Mean Corpuscular HGB Conc 31.7 g/dl (32-36); Mean Corpuscular Hemoglobin 24.9 pg (26-34); Mean Corpuscular Volume 78.4 fl (80-100); Mean Platelet Volume 10.2 fl (7.4-10.4); Platelet Count Result 223 k/mm3 (150-375); Red Cell Distribution Width 22.5 % (11.5-14.5); White Blood Count 6.5 K/mm3 (4.5-10.0)
[2022-01-31] MEDS: MINERAL OIL/WHITE PETROLATUM OINTMENT 1 APPLIC EACH EYE (09:28)
[2022-01-31] MEDS: FUROSEMIDE INJ 40 MG/4 ML VIAL IV PUSH ×2 (09:28→17:19)
[2022-01-31] MEDS: PANTOPRAZOLE SODIUM IV 40 MG VIAL IV PUSH ×2 (09:28→17:19)
[2022-01-31 10:00] LABS: Alanine Aminotransferase 25 U/L (6-35); Albumin Level 3.9 g/dL (3.5-5.1); Alkaline Phosphatase 133 U/L (38-126); Anion Gap 8 mmol/L (8-16); Aspartate Amino Transferase 41 U/L (14-36); Bilirubin,Total 0.4 mg/dL (0.2-1.3); Blood Urea Nitrogen 55 mg/dL (7-17); Calcium 8.6 mg/dL (8.4-10.2); Carbon Dioxide 31 mmol/L (22-30); Chloride 102 mmol/L (98-107); Estimated CRCL calculation 14 ml/min; Estimated Glomerular Filt Rate 19; Glucose 102 mg/dL (65-110); Magnesium 2.1 mg/dL (1.6-2.3); Phosphorus 4.7 mg/dL (2.5-4.5); Potassium 3.8 mmol/L (3.4-5.0); Sodium 141 mmol/L (137-145)
--- NOTE | 2022-01-31 10:39 | PM.PNNEP ---
Progress Note: A&P Assessment and Plan (1) Chronic kidney disease (CKD): Qualifiers: Chronic kidney disease stage: stage 4 (severe) Qualified Code(s): N18.4 - Chronic kidney disease, stage 4 (severe) Code(s): N18.9 - Chronic kidney disease, unspecified Status: Acute Assessment and Plan: the patient has chronic kidney disease by history from [facility]. We do not have any baseline creatinine. she apparently has stage 3/4 chronic kidney disease. Await labs. Her urine does show some protein but is otherwise bland. 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 Right kidney looks somewhat small at 9.4cm and has 1 cyst The patient does have diabetes and hypertension which are probably affecting the kidneys. her creatinine is stable in the mid to upper 2s. Her creatinine is 2.8 today, a little bit higher. Perhaps due to the diuretics? Will see if this trends in upward direction. If so we can cut back on the diuretics in the future Dr. Silva here starting Tuesday (2) Respiratory failure with hypoxia and hypercapnia: Code(s): J96.91 - Respiratory failure, unspecified with hypoxia; J96.92 - Respiratory failure, unspecified with hypercapnia Status: Acute Assessment and Plan: patient is much better. She is off the ventilator. Pulmonary following the patient. I agree with the patient looks a little volume overloaded. She is on diuretics. Intake/output 680/1750 Continue diuretics (3) GI bleed: Code(s): K92.2 - Gastrointestinal hemorrhage, unspecified Status: Acute Assessment and Plan: The patient has guaiac-positive stools hemoglobin increaesed a bit to 9.2 GI has been consulted. they are waiting for her to be more stable to do any procedures. (4) Hypertension: Code(s): I10 - Essential (primary) hypertension Status: Acute Assessment and Plan: Her blood pressure is Mostly between 130 and 150. The patient is getting diuretics now. The blood pressure may come down with this therapy. If it does not come down we can adjust her meds (5) DM2 (diabetes mellitus, type 2): Code(s): E11.9 - Type 2 diabetes mellitus without complications Status: Acute Assessment and Plan: The patient has diabetes. She is on insulin and sliding scale per hospitalist. (6) Anemia: Qualifiers: Anemia type: unspecified type Qualified Code(s): D64.9 - Anemia, unspecified Code(s): D64.9 - Anemia, unspecified Status: Acute Assessment and Plan: Hemoglobin is a little better (7) Lung mass: Code(s): R91.8 - Other nonspecific abnormal finding of lung field Status: Acute Assessment and Plan: She was noted to have a lung mass seen on her CT scan of the neck. Pulmonary has been consulted for this (8) Pneumonia: Qualifiers: Laterality: right Lung location: lower lobe of lung Pneumonia type: due to unspecified organism Qualified Code(s): J18.9 - Pneumonia, unspecified organism Code(s): J18.9 - Pneumonia, unspecified organism Status: Acute Assessment and Plan: the patient has some changes and her chest x-ray which may be consistent with pneumonia. She is on Zosyn Subjective Date/time seen: 01/31/22 10:39 Interval history: 01/26 Patient is on the ventilator. Sedated and comfortable 01/27 patient is on the ventilator. A little more interactive but I do not understand what she says. Her daughter Mary is in the room 01/28 Patient is on the vent. She looks comfortable. Her eyes are opened and she regards the examiner. No real communication. 01/29 Daughter in the room. We discussed the case. Shanti is more awake today. She makes eye contact. She hold my hand. 01/30 Awake and conversive. Was extubated. She denies any chest pain
--- NOTE | 2022-01-31 10:40 | WPDGIPROGNO ---
Progress Note: A&P Assessment and Plan (1) Anemia: Code(s): D64.9 - Anemia, unspecified Status: Acute Assessment and Plan: Patient appears to have a chronic anemia on review of laboratory parameters. Initially in the ER felt to have occult blood in stool. However when retested on the floor with this was Hemoccult negative. Given her significant comorbid diseases and rather significant respiratory issues no GI workup anticipated. I will sign off case please reconsult me should problems develop. (2) DM2 (diabetes mellitus, type 2): Code(s): E11.9 - Type 2 diabetes mellitus without complications Status: Acute (3) Congestive heart failure: Code(s): I50.9 - Heart failure, unspecified Status: Acute (4) Chronic kidney disease (CKD): Qualifiers: Chronic kidney disease stage: stage 4 (severe) Qualified Code(s): N18.4 - Chronic kidney disease, stage 4 (severe) Code(s): N18.9 - Chronic kidney disease, unspecified Status: Acute Subjective Date/time seen: 01/31/22 10:40 Patient extubated and now on the floor. Tolerating regular diet without difficulty. She is somewhat confused. Apparently at her baseline with dementia. No obvious bleeding described. Patient denies abdominal pain. Review of Systems Review of Systems: ROS unobtainable: Yes unobtainable due to mental status Exam Narrative: Physical exam reveals patient be alert comfortable at rest vital signs are stable sit lying in bed. HEENT exam reveals no icterus. Lungs are clear heart. Heart without murmur. Abdomen bowel sounds present soft nontender. Objective Data Vital Signs Vital Signs: Vital Signs - 24 hr 01/30/22 12:00 01/30/22 12:00 01/30/22 14:57 Temperature 97.9 F Pulse Rate 74 74 72 Respiratory Rate 19 22 H Blood Pressure 132/80 Pulse Oximetry 97 Oxygen Delivery Oxygen Flow Rate 01/30/22 14:57 01/30/22 16:00 01/30/22 16:00 Temperature 97.9 F Pulse Rate 71 79 85 Respiratory Rate 23 H 21 H Blood Pressure 159/96 H Pulse Oximetry 99 97 Oxygen Delivery Nasal Cannula Oxygen Flow Rate 2 01/30/22 18:19 01/30/22 20:40 01/31/22 00:00 Temperature 97.4 F L Pulse Rate 82 82 87 Respiratory Rate 18 Blood Pressure 149/56 H Pulse Oximetry 100 Oxygen Delivery Oxygen Flow Rate 01/30/22 20:00 01/31/22 00:00 01/31/22 08:28 Temperature 97.3 F L 97.1 F L Pulse Rate 87 85 Respiratory Rate 20 20 Blood Pressure 160/70 H 160/69 H Pulse Oximetry 98 99 94 Oxygen Delivery Nasal Cannula Oxygen Flow Rate 1 01/31/22 08:31 01/31/22 08:44 Temperature Pulse Rate 80 84 Respiratory Rate 22 H 20 Blood Pressure Pulse Oximetry Oxygen Delivery Oxygen Flow Rate Intake/Output Intake/Output: Intake & Output 01/28/22 01/29/22 01/30/22 01/31/22 23:59 23:59 23:59 23:59 Intake Total 1793 2026 680 50 Output Total 2650 1925 1750 Balance -857 101 -1070 50 Meds/Results Medications: Active Medications Generic Name Dose Route Start Last Admin Trade Name Freq PRN Reason Stop Dose Admin Albuterol 5 mg 01/25/22 08:00 01/31/22 09:18 Albuterol Sulfate Neb 2.5 Mg/3 Ml Inh INHALATION Not Given Q6HRT PASCUAL Dextrose 12.5 gm 01/24/22 15:17 Dextrose 50% 25 Gm/50 Ml Syringe IV PUSH PRN PRN Hypoglycemia Protocol Furosemide 40 mg 01/29/22 17:00 01/31/22 09:28 Furosemide Inj 40 Mg/4 Ml Vial IV PUSH 40 mg BID PASCUAL Administration Glucagon 1 mg 01/24/22 15:17 Glucagon For Inj 1 Mg Vial IM PRN PRN Hypoglycemia Protocol Glucose 15 gm 01/24/22 15:17 Glucose Oral Gel 15 Gm Of Glucse In 37.5 Gm Tube PO PRN PRN Hypoglycemia Protocol Hydralazine HCl 10 mg 01/24/22 15:20 Hydralazine Hcl 20 Mg/Ml Vial IV PUSH Q8H PRN Blood Pressure - High Dextrose 1,000 mls @ 100 mls/hr 01/24/22 15:17 Dextrose 5% 1,000 Ml IVPB PRN PRN Hypogly
--- NOTE | 2022-01-31 11:19 | PM.IMPN ---
Progress Note: A&P Assessment and Plan (1) Respiratory failure with hypoxia and hypercapnia: Code(s): J96.91 - Respiratory failure, unspecified with hypoxia; J96.92 - Respiratory failure, unspecified with hypercapnia Status: Acute Assessment and Plan: Patient with acute hypoxic and hypercapnic respiratory failure likely related to the obstructive sleep apnea, aspiration pneumonia and aspiration pneumonitis. COVID, influenza were negative. -patient was initially placed on BiPAP but ABG worsened requiring intubation 01/24/2022 -BCx have been negative -patient able to be extubated 01/29 -chest x-ray this morning showing mild pulmonary edema -continue bronchodilators but decreased dose -continue Zosyn; vancomycin stopped 01/24. Stop Zosyn after today (Day 7) -currently on Lasix IV per nephrology; change to oral Lasix? (2) Pneumonia: Qualifiers: Laterality: right Lung location: lower lobe of lung Pneumonia type: due to unspecified organism Qualified Code(s): J18.9 - Pneumonia, unspecified organism Code(s): J18.9 - Pneumonia, unspecified organism Status: Acute Assessment and Plan: Chest x-ray showed pneumonia, likely aspiration versus community-acquired -no fevers, CXR improved and WBC normal -continue antibiotics as above -ST consulted and MBS was ordered -diet adjusted per speech therapy direction (3) Chronic kidney disease (CKD): Qualifiers: Chronic kidney disease stage: stage 4 (severe) Qualified Code(s): N18.4 - Chronic kidney disease, stage 4 (severe) Code(s): N18.9 - Chronic kidney disease, unspecified Status: Acute Assessment and Plan: VLADIMIR with CKD with unknown baseline creatinine -patient received adequate IV fluids -urine output has been adequate -Appreciate nephrology following the patient -urine electrolytes show a non pre renal picture -Renal US showing right renal cyst but left not visualized. -Cr climbing to 2.8 today -continue to monitor urine output, renal function and electrolyte -change to oral Lasix? (4) Acute GI bleeding: Code(s): K92.2 - Gastrointestinal hemorrhage, unspecified Status: Acute Assessment and Plan: Patient presented with a hemoglobin of 6.9 on 01/22 -received 2 units of packed RBCs on 01/23 -positive Hemoccult in ED but guaiac negative on repeat -appreciate GI evaluation recommendation, no intervention at this time continue conservative treatment -hgb is stable post transfusion in the 8-9 range -patient on Protonix IV q.12 hours (5) Anemia: Qualifiers: Anemia type: unspecified type Qualified Code(s): D64.9 - Anemia, unspecified Code(s): D64.9 - Anemia, unspecified Status: Acute Assessment and Plan: As above. Add iron (6) Congestive heart failure: Code(s): I50.9 - Heart failure, unspecified Status: Acute Assessment and Plan: Echo showed ? 1. Technically difficult study with limited views. ? 2. Left ventricular systolic function is mildly reduced, estimated at 45-50%. ? 3. Right ventricular systolic function is normal. ? 4. Left atrial chamber dimension is mildly enlarged. ? 5. There is mild tricuspid valve regurgitation. ? 6. Dilated inferior vena cava with <50% collapse upon inspiration consistent with elevated right atrial pressure. Continue Lasix. (7) DM2 (diabetes mellitus, type 2): Code(s): E11.9 - Type 2 diabetes mellitus without complications Status: Acute Assessment and Plan: A1c 7.2. The patient's blood glucose was reviewed on 01/31 Glucose much better controlled Continue AccuCheks covering with sliding scale. Hypoglycemia protocol available as needed. Continue to monitor (8) Lung mass: Code(s): R91.8 - Other nonspecific abnormal finding of lung field Status: Acute Assessment and Plan: 01/22/2022: CT scan of the cervical spine showed Irregular shaped 2.1 cm left up
[2022-01-31 11:57] LABS: Glucose Point of Care 224 mg/dl (65-105)
[2022-01-31] MEDS: INSULIN ASPART (*BKC) 100 UNITS/ML SUB-Q (12:06)
--- NOTE | 2022-01-31 12:42 | PC.NURSE ---
Pt's daughter, Mary, called asking for an update. I attempted to return her call but got voicemail. Mary called after I left the voicemail. I answered her questions and updating her on pt's status.
[2022-01-31 16:21] LABS: Glucose Point of Care 75 mg/dl (65-105)
[2022-01-31] MEDS: FERROUS SULFATE 324 MG TABLET PO (17:19)
[2022-01-31 23:23] LABS: Glucose Point of Care 115 mg/dl (65-105)
[2022-02-01] VITALS (11 sets, daily range): BP systolic 138–153; BP diastolic 50–86; PULSE 74–87; RESP 20–23; TEMP 36.1–36.3; O2SAT 90–96; BMI 29.7
[2022-02-01] MEDS: IPRATROPIUM BR 0.02% INH SOLN 0.5 MG/2.5 ML VIAL INHALATION ×4 (02:07→20:42)
[2022-02-01] MEDS: ALBUTEROL SULFATE NEB 2.5 MG/3 ML INH 5 MG INHALATION ×4 (02:07→20:42)
[2022-02-01 06:22] LABS: Hematocrit 29.3 % (37.0-47.0); Hemoglobin 9.4 g/dL (12.0-15.0); Mean Corpuscular HGB Conc 32.1 g/dl (32-36); Mean Corpuscular Hemoglobin 24.5 pg (26-34); Mean Corpuscular Volume 76.5 fl (80-100); Mean Platelet Volume 10.2 fl (7.4-10.4); Platelet Count Result 245 k/mm3 (150-375); Red Blood Count 3.83 M/mm3 (4.2-5.4); Red Cell Distribution Width 21.6 % (11.5-14.5); White Blood Count 7.1 K/mm3 (4.5-10.0)
[2022-02-01 06:33] LABS: Alanine Aminotransferase 25 U/L (6-35); Alkaline Phosphatase 144 U/L (38-126); Anion Gap 8 mmol/L (8-16); Aspartate Amino Transferase 41 U/L (14-36); Bilirubin,Total 0.6 mg/dL (0.2-1.3); Blood Urea Nitrogen 54 mg/dL (7-17); Calcium 8.7 mg/dL (8.4-10.2); Carbon Dioxide 34 mmol/L (22-30); Chloride 102 mmol/L (98-107); Estimated CRCL calculation 14 ml/min; Estimated Glomerular Filt Rate 19; Glucose 99 mg/dL (65-110); Magnesium 2.1 mg/dL (1.6-2.3); Potassium 3.7 mmol/L (3.4-5.0); Sodium 144 mmol/L (137-145)
[2022-02-01 08:24] LABS: Glucose Point of Care 94 mg/dl (65-105)
--- NOTE | 2022-02-01 08:31 | PCOTNOTE ---
Attempted to see pt. for occupational therapy evaluation. Per nursing, pt. has femoral line at this time and is unsafe to mobilize for activity. Will follow-up with hospitalist re: canceling orders until appropriate. Following.
[2022-02-01] MEDS: FLUTICASONE/SALMETEROL 115-21 MCG INHALER 1 PUFF 2 PUFF INHALATION (09:00)
[2022-02-01] MEDS: FERROUS SULFATE 324 MG TABLET PO (09:21)
[2022-02-01] MEDS: FUROSEMIDE INJ 40 MG/4 ML VIAL IV PUSH (09:21)
[2022-02-01] MEDS: CHOLECALCIFEROL 1,000 UNITS TABLET 1000 UNITS PO (09:21)
[2022-02-01] MEDS: PANTOPRAZOLE 40 MG TABLET PO (09:21)
--- NOTE | 2022-02-01 11:13 | PCNFU ---
Nutrition Follow-Up Complete: Inadequate energy intake related to NPO status, mechanical ventilation as evidenced by need for full tube feeding. New care plan: Inadequate energy intake related to loss of appetite, recent ICU stay as evidenced by poor intakes <50% needs Goal: Meet estimated nutrition needs - Not meeting goal PO Pt current nutrition is Heart healthy diet with moderately thickened liquids. Nutrition recommendation: Honey thick Ensure Compact BID Last recorded weight is 81.18 kg. Bowel Motility: +1 BM 02/01/22 Labs Reviewed: Hgc 9.4, Hct 29.3, eGFR 19, BUN 54, Creat 2.8 Meds Noted: Lasix, protonix, Novolog Skin: WNL Additional Notes: Extubated 01/29/22. Advanced to heart healthy diet with moderately thick liquids. Refused lunch yesterday. Monitoring labs, tolerance, weights, meds, skin, plan of care. Follow up every 3 days
--- NOTE | 2022-02-01 11:40 | PCPTNOTE ---
Attempted to see pt. for physical therapy evaluation. PER OT: Per nursing, pt. has femoral line at this time and is unsafe to mobilize for activity. Will follow-up with hospitalist re: canceling orders until appropriate. Following.
[2022-02-01 11:59] LABS: Glucose Point of Care 136 mg/dl (65-105)
--- NOTE | 2022-02-01 13:01 | PM.PNNEP ---
Progress Note: A&P Assessment and Plan (1) Chronic kidney disease (CKD): Qualifiers: Chronic kidney disease stage: stage 4 (severe) Qualified Code(s): N18.4 - Chronic kidney disease, stage 4 (severe) Code(s): N18.9 - Chronic kidney disease, unspecified Status: Chronic Assessment and Plan: known history of CKD by nursing facility records however, what her baseline creatinine is not clear (but reportedly has CKD stage 3 - 4) evaluation to date: renal ultrasound with smallish right kidney; unable to see left kidney urine electrolytes are non-prerenal bland urinalysis aside from protein suspicion falls on diabetes, hypertension, vascular disease, and age as etiology of CKD since admission, creatinine fluctuating ~ 2.3 - 2.8mg/dl (likely due to diuretics) seems reasonable to oral diuretics (i.e. 40mg daily) follow trend of labs and UOP (2) Respiratory failure with hypoxia and hypercapnia: Code(s): J96.91 - Respiratory failure, unspecified with hypoxia; J96.92 - Respiratory failure, unspecified with hypercapnia Status: Acute Assessment and Plan: clinical improvement noted off ventilator support good diuresis with current therapy (3) GI bleed: Code(s): K92.2 - Gastrointestinal hemorrhage, unspecified Status: Acute Assessment and Plan: doing abiti better H/H improving has chronic anemia likely secondary/related to underlying CKD initially guaiac-positive but repeat testing negative no further GI work-up as per Gastroenterology (4) Hypertension: Code(s): I10 - Essential (primary) hypertension Status: Acute Assessment and Plan: reasonable control follow trend of hemodynamics (5) DM2 (diabetes mellitus, type 2): Code(s): E11.9 - Type 2 diabetes mellitus without complications Status: Acute Assessment and Plan: follow accuchecks glycemic control Will continue to follow. Subjective Date/time seen: 02/01/22 13:01 Chart reviewed -- assuming care from Dr. Thomas; remains pleasantly confused but in no apparent distress; denies any complaints of shortness of breath at the time of my visit; no other issues/events overnight or earlier this morning. Exam Narrative: General: elderly AA female in NAD Heart: normal S1 and S2; no rub Lungs: coarse breath sounds noted; decreased at bases Abdomen: soft, nontender, nondistended, positive bowel sounds Extremities: no cyanosis or clubbing; trace - 1+ edema Skin: warm and dry Objective Data Vital Signs Vital Signs: Vital Signs Temp Pulse Resp BP Pulse Ox O2 Del Method 02/01/22 12:00 97.3 F L 83 20 139/59 L 91 02/01/22 12:00 79 02/01/22 08:00 97 F L 83 22 H 147/86 H 90 02/01/22 08:00 87 02/01/22 09:23 79 20 02/01/22 09:06 78 20 02/01/22 09:06 78 91 Room Air 02/01/22 04:00 97 F L 86 23 H 153/58 H 95 02/01/22 04:00 79 02/01/22 00:00 85 02/01/22 02:25 79 20 02/01/22 02:07 82 22 H 02/01/22 00:00 97.3 F L 83 23 H 151/66 H 93 01/31/22 20:00 76 01/31/22 20:00 97 F L 87 24 H 155/70 H 94 01/31/22 20:10 76 92 Room Air 01/31/22 20:10 73 20 01/31/22 20:00 76 20 01/31/22 16:00 98 F 90 25 H 152/62 H 100 01/31/22 16:00 81 Intake/Output Intake/Output: Intake & Output 01/29/22 01/30/22 01/31/22 02/01/22 23:59 23:59 23:59 23:59 Intake Total 2025 680 350 0 Output Total 1925 1750 1500 1400 Balance 101 -1070 -1150 -1400 Meds/Results Medications: Active Medications Generic Name Dose Route Start Last Admin Trade Name Freq PRN Reason Stop Dose Admin Albuterol 5 mg 01/25/22 08:00 02/01/22 14:31 Albuterol Sulfate Neb 2.5 Mg/3 Ml Inh INHALATION 5 mg Q6HRT PASCUAL Administration Dextrose 12.5 gm 01/24/22 15:17 Dextrose 50% 25 Gm/50 Ml Syringe IV PUSH PRN PRN Hypoglycemia
--- NOTE | 2022-02-01 13:01 | P.PNNP_ITS ---
Progress Note: A&P Assessment and Plan (1) Chronic kidney disease (CKD): Qualifiers: Chronic kidney disease stage: stage 4 (severe) Qualified Code(s): N18.4 - Chronic kidney disease, stage 4 (severe) Code(s): N18.9 - Chronic kidney disease, unspecified Status: Chronic Assessment and Plan: * known history of CKD by nursing facility records * however, what her baseline creatinine is not clear (but reportedly has CKD stage 3 - 4) * evaluation to date: * renal ultrasound with smallish right kidney; unable to see left kidney * urine electrolytes are non-prerenal * bland urinalysis aside from protein * suspicion falls on diabetes, hypertension, vascular disease, and age as etiology of CKD * since admission, creatinine fluctuating ~ 2.3 - 2.8mg/dl (likely due to diuretics) * seems reasonable to oral diuretics (i.e. 40mg daily) * follow trend of labs and UOP (2) Respiratory failure with hypoxia and hypercapnia: Code(s): J96.91 - Respiratory failure, unspecified with hypoxia; J96.92 - Respiratory failure, unspecified with hypercapnia Status: Acute Assessment and Plan: * clinical improvement noted * off ventilator support * good diuresis with current therapy (3) GI bleed: Code(s): K92.2 - Gastrointestinal hemorrhage, unspecified Status: Acute Assessment and Plan: * doing abiti better * H/H improving * has chronic anemia likely secondary/related to underlying CKD * initially guaiac-positive but repeat testing negative * no further GI work-up as per Gastroenterology (4) Hypertension: Code(s): I10 - Essential (primary) hypertension Status: Acute Assessment and Plan: * reasonable control * follow trend of hemodynamics (5) DM2 (diabetes mellitus, type 2): Code(s): E11.9 - Type 2 diabetes mellitus without complications Status: Acute Assessment and Plan: * follow accuchecks * glycemic control Will continue to follow. Subjective Date/time seen: 02/01/22 13:01 Chart reviewed -- assuming care from Dr. Thomas; remains pleasantly confused but in no apparent distress; denies any complaints of shortness of breath at the time of my visit; no other issues/events overnight or earlier this morning. Exam Narrative: General: elderly AA female in NAD Heart: normal S1 and S2; no rub Lungs: coarse breath sounds noted; decreased at bases Abdomen: soft, nontender, nondistended, positive bowel sounds Extremities: no cyanosis or clubbing; trace - 1+ edema Skin: warm and dry Objective Data Vital Signs Vital Signs: Vital Signs Temp Pulse Resp BP Pulse Ox O2 Del Method 02/01/22 12:00 97.3 F L 83 20 139/59 L 91 02/01/22 12:00 79 02/01/22 08:00 97 F L 83 22 H 147/86 H 90 02/01/22 08:00 87 02/01/22 09:23 79 20 02/01/22 09:06 78 20 02/01/22 09:06 78 91 Room Air 02/01/22 04:00 97 F L 86 23 H 153/58 H 95 02/01/22 04:00 79 02/01/22 00:00 85 02/01/22 02:25 79 20 02/01/22 02:07 82 22 H 02/01/22 00:00 97.3 F L 83 23 H 151/66 H 93 01/31/22 20:00 76 01/31/22 20:00 97 F L 87 24 H 155/70 H 94 01/31/22 20:10 76 92 Room Air 01/31/22 20:10 73 20 01/31/22 20:00 76
--- NOTE | 2022-02-01 15:58 | PM.DS ---
DS: Admitting Diagnosis Discharge Date 02/01/22 Admitting Diagnosis shortness of breath and fall. DS: Discharge Diagnosis Discharge Diagnosis (1) Respiratory failure with hypoxia and hypercapnia: Code(s): J96.91 - Respiratory failure, unspecified with hypoxia; J96.92 - Respiratory failure, unspecified with hypercapnia Status: Acute (2) Pneumonia: Qualifiers: Laterality: right Lung location: lower lobe of lung Pneumonia type: due to unspecified organism Qualified Code(s): J18.9 - Pneumonia, unspecified organism Code(s): J18.9 - Pneumonia, unspecified organism Status: Acute (3) Chronic kidney disease (CKD): Qualifiers: Chronic kidney disease stage: stage 4 (severe) Qualified Code(s): N18.4 - Chronic kidney disease, stage 4 (severe) Code(s): N18.9 - Chronic kidney disease, unspecified Status: Acute (4) Acute GI bleeding: Code(s): K92.2 - Gastrointestinal hemorrhage, unspecified Status: Acute (5) Anemia: Qualifiers: Anemia type: unspecified type Qualified Code(s): D64.9 - Anemia, unspecified Code(s): D64.9 - Anemia, unspecified Status: Acute (6) Congestive heart failure: Code(s): I50.9 - Heart failure, unspecified Status: Acute (7) DM2 (diabetes mellitus, type 2): Code(s): E11.9 - Type 2 diabetes mellitus without complications Status: Acute (8) Lung mass: Code(s): R91.8 - Other nonspecific abnormal finding of lung field Status: Acute (9) Swelling of lower extremity: Code(s): M79.89 - Other specified soft tissue disorders Status: Acute (10) Chronic GERD: Code(s): K21.9 - Gastro-esophageal reflux disease without esophagitis Status: Acute DS: Summary Hospital Course Reason for hospitalization: 86yo female with dementia, DM and HTN here for shortness of breath and fall. Please see H&P for details Hospital Course: Patient with shortness of breath on admission and found to have acute hypoxic and hypercapnic respiratory failure likely related to the anemia, AVA, aspiration pneumonia and aspiration pneumonitis. COVID and influenza were negative. Patient was initially placed on BiPAP but ABG worsened requiring?intubation 01/24. BCx were negative. Treated with IV abx and nebulizers. She was able to be extubated 01/29. She completed a course of abx. She was started on IV diuretics. Speech therapy evaluated the patient and diet was adjusted per speech therapy direction. Patient has known CKD but with acute kidney injury related to respiratory failure and PNA. Patient received adequate IV fluids. Renal US showing right renal cyst but left not visualized. Nephrology was consulted and appreciate their input. Patient presented with a hemoglobin of 6.9 and received 2 units of packed RBCs. She was positive Hemoccult in ED but guaiac negative on repeat. GI consulted and appreciate GI evaluation. They recommended no intervention at this time and to continue conservative treatment. Hgb is stable post transfusion in the 8-9 range. We continued Protonix. Echo showed EF 45-50% (se report for details). CT scan of the cervical spine on admission showed?Irregular shaped 2.1 cm left upper lobe mass, suspicious for bronchogenic carcinoma but chest CT showing 11mm left lung nodule with recommendation of follow up CT chest in 3 months. She overall did well and was able to be discharged to [facility]. Status at Discharge Cognitive/behavioral status at discharge: Stable Time Spent with Patient Time attestation: Total time spent providing and/or coordinating discharge services:34 minutes Time spent: Greater than 30 minutes Exam Narrative: AF 97.3 139/59 74 20 91% RA Gen - NARD Chest - left mid chest inspiratory rhonchi o/w distant, clear BS CV - RRR S1/S2. Tele showing no significant dysrhythmias Abd - Soft, obese, NT Ext - no pedal edema Neuro - Alert bu
[2022-02-01 16:36] LABS: EDCOVIDSCREEN Negative (Negative)
[2022-02-01 17:20] LABS: Glucose Point of Care 170 mg/dl (65-105)
[2022-02-01 21:52] LABS: Glucose Point of Care 131 mg/dl (65-105)
== END 2022-02-01 21:25 | DRG 207 ==
LOC: ANHED 01-24 09:50 → ANH3MEDSUR 01-24 11:34 → ANHICU 01-25 11:33 → ANH3MEDSUR 02-01 16:16 → ANHICU 02-02 09:08
PROVIDERS: Emergency Medicine; Internal Medicine; Internal Medicine Gastroenterology; Internal Medicine Nephrology; Nurse Practitioner; Physician Assistant; Admitting Provider Family Medicine; Emergency Provider Emergency Medicine; PCP Family Medicine; Visit Provider Internal Medicine
DX: J96.01 Acute respiratory failure with hypoxia (principal); J18.9 Pneumonia, unspecified organism; J69.0 Pneumonitis due to inhalation of food and vomit; I13.0 Hypertensive heart and chronic kidney disease with heart failure and stage 1 through stage 4 chronic kidney disease, or unspecified chronic kidney disease; I50.22 Chronic systolic (congestive) heart failure; N18.4 Chronic kidney disease, stage 4 (severe); K92.2 Gastrointestinal hemorrhage, unspecified; C34.90 Malignant neoplasm of unspecified part of unspecified bronchus or lung; N17.9 Acute kidney failure, unspecified; J96.02 Acute respiratory failure with hypercapnia; W01.198A Fall on same level from slipping, tripping and stumbling with subsequent striking against other object, initial encounter; D63.1 Anemia in chronic kidney disease; G47.33 Obstructive sleep apnea (adult) (pediatric); Z20.822 Contact with and (suspected) exposure to COVID-19; E11.22 Type 2 diabetes mellitus with diabetic chronic kidney disease; G30.1 Alzheimer's disease with late onset; F02.80 Dementia in other diseases classified elsewhere, unspecified severity, without behavioral disturbance, psychotic disturbance, mood disturbance, and anxiety; K21.9 Gastro-esophageal reflux disease without esophagitis; E87.5 Hyperkalemia; R19.8 Other specified symptoms and signs involving the digestive system and abdomen; N28.1 Cyst of kidney, acquired; D50.9 Iron deficiency anemia, unspecified
CPT/HCPCS: 36415; 36430; 36600; 70450; 71045; 71250; 72125; 72170; 76775; 80048; 80053; 80069; 80076; 80202; 81001; 82274; 82375; 82570; 82607; 82728; 82746; 82805; 82948; 83036; 83050; 83540; 83550; 83605; 83615; 83735; 83880; 83970; 84100; 84156; 84300; 84439; 84443; 84480; 84540; 85014; 85018; 85025; 85027; 85610; 85730; 86850; 86900; 86901; 86923; 87040; 87070; 87205; 87426; 87636; 92526; 92610; 92611; 93005; 93970; 94002; 94003; 94640; 96361; 96365; 96366; 96367; 96375; 99285; A9270; C1751; C8929; C9113; C9803; J0456; J0610; J0696; J1815; J1940; J2060; J2250; J2405; J2543; J3010; J3370; J7030; J7050; P9016; Q9957

== ENCOUNTER 2022-05-28 09:42 | Emergency (ER) | payer MEDICARE, MEDICAID, SELFPAY ==
[2022-05-28] VITALS (17 sets, daily range): BP systolic 98–145; BP diastolic 43–76; PULSE 58–82; RESP 13–25; TEMP 35.7–35.9; O2SAT 98–100
--- NOTE | ~2022-05-28 | CT_ITS ---
EXAMINATION: CT brain wo con DATE: 05/28/2022 10:21 INDICATION: Altered mental status. TECHNIQUE: Computed tomography (CT) of the head was performed without intravenous contrast. The mA wa s adjusted according to patient size. Iterative reconstruction technique was employed. The dose-lengt h product was 908.00 mGy-cm. COMPARISON: Head CT 01/22/2022 FINDINGS: There are scattered areas of low attenuation in the cerebral white matter. There is no intr acranial hemorrhage, acute infarction, or abnormal intracranial mass lesion. The ventricles are grant l in size. There is mild mucosal thickening in the paranasal sinuses. There is a small osteoma in rig ht ethmoid sinus. The mastoid air cells are normal. There is cerumen in right external auditory canal . There are likely changes of ocular lens replacement surgeries. IMPRESSION: 1. Stable mild nonspecific cerebral white matter disease, which likely represents chronic small vesse l ischemic disease. Reviewed, dictated and finalized at location A. IMPRESSION: 1. Stable mild nonspecific cerebral white matter disease, which likely represen ts chronic small vessel ischemic disease.
--- NOTE | ~2022-05-28 | XR_ITS ---
EXAMINATION: XR chest 2V DATE: 05/28/2022 10:30 INDICATION: Transient alteration of awareness TECHNIQUE: AP and lateral views of the chest are obtained. COMPARISON: 02/01/2022 FINDINGS: There are minimal airspace opacities of the lung bases. No pleural effusion or pneumothorax . Cardiomegaly is noted. A segmentation anomalies again noted in the midthoracic spine at the center of exaggerated kyphosis. There are surgical clips in the right upper quadrant. IMPRESSION: 1. Minimal airspace opacities of the lung bases, consistent with atelectasis versus pneumonia. 2. Cardiomegaly. Reviewed, dictated and finalized at location B. IMPRESSION: 1. Minimal airspace opacities of the lung bases, consistent with atelectasis ve rsus pneumonia. 2. Cardiomegaly.
--- NOTE | 2022-05-28 09:45 | ECG_ITS ---
Measurements Intervals [place] Rate: 58 P: SC: 0 QRS: -34 QRSD: 121 T: 18 QT: 456 QTc: 451 Interpretive Statements SINUS BRADYCARDIA WITH FIRST-DEGREE AV BLOCK AND INTERMITTENT 2ND DEGREE AV BLOCK, MOBITZ TYPE I (WENCKEBACH) BASELINE ARTIFACT LEFT AXIS DEVIATION SEPTAL MYOCARDIAL INFARCTION , OF INDETERMINATE AGE ABNORMAL ECG COMPARED TO ECG 01/23/2022 00:42:07 HEART RATE HAS DECREASED SECONDARY AV BLOCK NOW APPRECIATED Electronically Signed On 05-29-2022 14:50:55 CDT by Christopher Christianson M.D.
--- NOTE | 2022-05-28 10:10 | ED.AMS ---
HPI - Altered Mental Status General Chief Complaint: Altered Mental Status <Joy Hayes PA-C - Last Filed: 05/28/22 19:47> Stated Complaint: AMS <ABNER Person Last Filed: 05/28/22 19:47> Time Seen by Provider: 05/28/22 09:46 <ABNER Person Last Filed: 05/28/22 19:47> Source: patient, family and old records reviewed <ABNER Person Last Filed: 05/28/22 19:47> Mode of arrival: EMS <ABNER Person Last Filed: 05/28/22 19:47> Limitations: no limitations <ABNER Person Last Filed: 05/28/22 19:47> History of Present Illness HPI narrative: Patient is an 86-year-old female who presents to the ED via EMS with report of AMS. Patient is a resident of [facility]. Per daughter at bedside, EMS was contacted today due to patient having low blood pressure and increased disorientation. Daughter reports patient was seen here in January and admitted for GI bleed, pneumonia, acute respiratory failure. She was found to have a left lung mass. Daughter reports patient's physicians are at [facility] and she would like patient to be transferred there. She states she was supposed to see a hired help this week. Patient denies any acute complaints. Denies abdominal pain, difficulty breathing, chest pain, nausea, vomiting. She states she feels normal. Daughter reports the last time she saw patient was over the weekend at which time she appeared normal to daughter. Daughter does report patient seems to have increased work of breathing today. <ABNER Person Last Filed: 05/28/22 19:47> Related Data Home Medications: Home Medications Medication Instructions Recorded Confirmed budesonide-formoterol HFA 160 2 puff inhalation BID 01/22/22 01/24/22 mcg-4.5 mcg/actuation aerosol inhaler (Symbicort) cholecalciferol (vitamin D3) 25 25 mcg PO DAILY 01/22/22 01/24/22 mcg (1,000 unit) tablet dextromethorphan-guaifenesin 30 1 tablet PO Q12H PRN Cough 01/22/22 01/24/22 mg-600 mg tablet extended [id number] hr (Mucinex DM) hydralazine 25 mg tablet 75 mg PO TID 01/22/22 01/24/22 insulin detemir U-100 100 unit/mL 5 unit subcut HS 01/22/22 01/24/22 (3 mL) subcutaneous pen (Levemir FlexTouch U-100 Insulin) ipratropium 0.5 mg-albuterol 3 mg 3 ml inhalation QID PRN shortness 01/22/22 01/24/22 (2.5 mg base)/3 mL nebulization of breath soln ondansetron 4 mg disintegrating 4 mg PO Q8H PRN Nausea 01/22/22 01/24/22 tablet pantoprazole 40 mg tablet,delayed 40 mg PO DAILY 01/22/22 01/24/22 release polyethylene glycol 3350 17 17 g PO DAILY 01/22/22 01/24/22 gram/dose oral powder potassium chloride 20 mEq 20 meq PO DAILY 01/22/22 01/24/22 tablet,extended release(part/cryst) <Joy Hayes PA-C - Last Filed: 05/28/22 19:47> Allergies/Adverse Reactions: Allergies Allergy/AdvReac Type Severity Reaction Status Date / Time No Known Allergies Allergy Verified 01/23/22 14:58 <Joy Hayes PA-C - Last Filed: 05/28/22 19:47> Review of Systems Review of Systems: CONSTITUTIONAL: Denies fever, chills, or sweats. CARDIOVASCULAR: Denies chest pain, palpitations, or edema. RESPIRATORY: See HPI. GASTROINTESTINAL: Denies abdominal pain, nausea, vomiting. GENITOURINARY: Denies dysuria or hematuria. SKIN: Denies rash or itching. MUSCULOSKELETAL: Denies back pain, joint pain, or myalgia. NEUROLOGIC: See HPI. <ABNER Person Last Filed: 05/28/22 19:47> All systems reviewed & are unremarkable except as noted in HPI and below <Joy Hayes PA-C - Last Filed: 05/28/22 19:47> [facility] Past Medical History Medical History: Medical History Chronic GERD DM2 (diabetes mellitus, type 2) History of diabetes mellitus History of hypertension Hypertension <Joy Headley
[2022-05-28 10:27] LABS: Basophils Percent Auto 0.3 % (0.2-1.2); Eosinophils Absolute Auto 0.1 K/mm3 (0-0.3); Eosinophils Percent Auto 1.8 % (0-4.4); Immature Granulocyte Absolute 0.03 K/mm3 (0.00-0.031); Immature Granulocyte Percent A 0.8 % (0-0.5); Immature Platelet Fraction Pct 5.9 % (0.9-11.2); Lymphocytes Absolute Auto 0.57 K/mm3 (0.9-3.2); Lymphocytes Percent Auto 14.8 % (18.3-44.2); Mean Corpuscular HGB Conc 31.1 g/dl (32-36); Mean Corpuscular Volume 80.4 fl (80-100); Mean Platelet Volume 11.2 fl (7.4-10.4); Monocytes Absolute Auto 0.3 K/mm3 (0.1-0.6); Monocytes Percent Auto 8.1 % (2.6-8.5); Neutrophils Absolute Auto 2.9 K/mm3 (1.3-6.7); Neutrophils Percent Auto 74.2 % (45.5-73.1); Nucleated Red Blood Cells Perc 0.5 % (0.0-0.2); Platelet Count Result 154 k/mm3 (150-375); Red Cell Distribution Width 19.1 % (11.5-14.5); White Blood Count 3.9 K/mm3 (4.5-10.0)
[2022-05-28 10:32] LABS: Lactic Acid Reflex 0.8 mmol/L (0.7-2.0)
[2022-05-28 10:34] LABS: Hematocrit 20.9 % (37.0-47.0); Hemoglobin 6.5 g/dL (12.0-15.0)
[2022-05-28 10:35] LABS: INR 1.1; Prothrombin Time 13.6 Seconds (11.1-14.7)
[2022-05-28 10:36] LABS: Alanine Aminotransferase 58 U/L (6-35); Albumin Level 4.3 g/dL (3.5-5.1); Alkaline Phosphatase 139 U/L (38-126); Anion Gap 8 mmol/L (8-16); Aspartate Amino Transferase 52 U/L (14-36); Bilirubin,Total 0.4 mg/dL (0.2-1.3); Blood Urea Nitrogen 62 mg/dL (7-17); Calcium 8.3 mg/dL (8.4-10.2); Carbon Dioxide 29 mmol/L (22-30); Chloride 110 mmol/L (98-107); Estimated Glomerular Filt Rate 18; Glucose 186 mg/dL (65-110); Partial Thromboplastin Time 35.2 SECONDS (22.3-36.8); Potassium 6.6 mmol/L (3.4-5.0); Sodium 147 mmol/L (137-145)
[2022-05-28 10:45] LABS: Troponin I 0.035 ng/mL (0.000-0.034)
[2022-05-28] MEDS: IPRATROPIUM BR 0.02% INH SOLN 0.5 MG/2.5 ML VIAL 1.5 MG INHALATION (11:03)
[2022-05-28] MEDS: LEVALBUTEROL NEB 1.25 MG/3 ML 2.5 MG INHALATION (11:04)
[2022-05-28 11:11] LABS: Glucose Point of Care 174 mg/dl (65-105)
[2022-05-28] MEDS: INSULIN HUMAN REGULAR (*BKC) 100 UNITS/ML 10 UNITS IV PUSH (11:13)
[2022-05-28 11:58] LABS: Lactate Dehydrogenase 310 U/L (120-246)
[2022-05-28 12:04] LABS: Iron 54 ug/dL (37-170)
[2022-05-28 12:07] LABS: Transferrin 252 mg/dL (206-381)
[2022-05-28 12:14] LABS: Percent Iron Saturation 15 % (20-50)
[2022-05-28 12:24] LABS: Appearance Urine Cloudy (Clear); Bacteria Urine 4+ /hpf; Bilirubin Urine Negative (Negative); Blood Urine Negative (Negative); Color Urine Yellow (Yellow); Glucose Urine UA Negative (Negative); Ketones Urine Negative (Negative); Leukocyte Esterase Ur 3+ LEU/UL (Negative); Need Manual Microscopic Reviewed; Nitrate Urine Negative (Negative); Protein Urine 2+ mg/dL (Negative); RBC Urine 0-2 /hpf (0-2); Specific Grav Ur 1.014 (1.001-1.035); Squamous Epithelial Cell Urine None seen /hpf (Few); Urobilinogen Urine 0.2 mg/dL (<2.0); WBC Urine 51-100 /hpf; pH Urine 8.5 (5.0-9.0)
[2022-05-28] MEDS: SODIUM CHLORIDE 0.9% IV 250 ML 30 ML IV CONT (12:28)
[2022-05-28] MEDS: CALCIUM GLUCONATE 1,000 MG/10 ML VIAL 1000 MG IV PUSH (12:29)
[2022-05-28] MEDS: TUBING, BLOOD SET 1 EACH XX (12:29)
[2022-05-28 12:34] LABS: Add Urine Microscopic? YES
[2022-05-28 13:08] LABS: NT Pro B Type Natriuretic Pept 5430 pg/mL (19.9-100)
[2022-05-28] MEDS: DEXTROSE 50% 25 GM/50 ML SYRINGE IV PUSH (13:41)
[2022-05-28] MEDS: SODIUM ZIRCONIUM CYCLOSILICATE 10 GM POWD.PACK PO (13:41)
[2022-05-28 13:49] LABS: Glucose Point of Care 186 mg/dl (65-105)
[2022-05-28 14:33] LABS: Influenza A QL RT-PCR Negative (Negative); Influenza B QL RT-PCR Negative (Negative); SARS-CoV-2 RNA PCR Negative
--- NOTE | 2022-05-28 14:40 | PC.NURSE ---
[facility]
--- NOTE | 2022-05-28 14:51 | PC.NURSE ---
[facility]48 [facility] accepted transfer to [facility] ETA 1530 Trip # [id number]
--- NOTE | 2022-05-28 15:29 | PC.NURSE ---
Report called to [facility] and given to nurse Will.
[2022-05-28] MEDS: FUROSEMIDE INJ 40 MG/4 ML VIAL IV PUSH (15:42)
[2022-05-28] MEDS: PANTOPRAZOLE SODIUM IV 40 MG VIAL IV PUSH (15:42)
--- NOTE | 2022-05-28 17:09 | PC.NURSE ---
Blood was still transfusing when [facility] picked up to transfer. Pt was infused approx 275ML of PRBC.
[2022-06-03 10:37] LABS: Haptoglobin 107 mg/dL (43-212)
== END 2022-05-28 17:46 | disposition short-term general hospital (02) ==
LOC: ANHED 10:03
PROVIDERS: Emergency Provider Physician Assistant; PCP Family Medicine
DX: E87.5 Hyperkalemia (principal); N30.01 Acute cystitis with hematuria; J18.9 Pneumonia, unspecified organism; D64.9 Anemia, unspecified; K92.1 Melena; N18.9 Chronic kidney disease, unspecified; I50.9 Heart failure, unspecified; Z20.822 Contact with and (suspected) exposure to COVID-19; E11.22 Type 2 diabetes mellitus with diabetic chronic kidney disease; I13.0 Hypertensive heart and chronic kidney disease with heart failure and stage 1 through stage 4 chronic kidney disease, or unspecified chronic kidney disease; K21.9 Gastro-esophageal reflux disease without esophagitis; Z79.4 Long term (current) use of insulin; R00.1 Bradycardia, unspecified; I44.0 Atrioventricular block, first degree; I44.1 Atrioventricular block, second degree; R94.31 Abnormal electrocardiogram [ECG] [EKG]; Q24.8 Other specified congenital malformations of heart
CPT/HCPCS: 36415; 36430; 70450; 71046; 80053; 81001; 82728; 82948; 83010; 83540; 83550; 83605; 83615; 83880; 84466; 84484; 85025; 85055; 85610; 85730; 86850; 86900; 86901; 86923; 87086; 87088; 87636; 93005; 94640; 96361; 96365; 96375; 99284; 99285; A9270; C9113; J0612; J0696; J1815; J1940; J7050; P9016

== ENCOUNTER 2022-09-25 18:09 | Emergency (ER) | payer OTHER, MEDICARE, MEDICAID, SELFPAY ==
[2022-09-25] VITALS (38 sets, daily range): BP systolic 105–151; BP diastolic 43–86; PULSE 61–82; RESP 11–39; TEMP 35.7; O2SAT 94–99
--- NOTE | ~2022-09-25 | XR_ITS ---
Clinical Indication: Shortness of breath AP and lateral views of the chest: Comparison: 05/28/2022 Findings: The lungs are clear, without evidence of focal consolidation or pleural effusion. Cardiome diastinal silhouette is within normal limits. Stable compression fracture midthoracic spine with asso ciated kyphosis. Impression: Clear lungs. Stable compression fracture at the mid thoracic spine, with associated kyphosis. Reviewed, dictated and finalized at location . Impression: Clear lungs. Stable compression fracture at the mid thoracic spine, with associated kyphosis .
--- NOTE | 2022-09-25 18:36 | ECG_ITS ---
Measurements Intervals [place] Rate: 68 P: 54 AR: 288 QRS: -24 QRSD: 123 T: 76 QT: 440 QTc: 470 Interpretive Statements SINUS RHYTHM WITH FIRST DEGREE AV BLOCK MODERATE INTRAVENTRICULAR CONDUCTION DELAY [105+ ms QRS DURATION, 80+ ms Q/S IN V1/V2, NO Q AND 60+ ms R IN I/aVL/V5/V6] NONSPECIFIC T-WAVE ABNORMALITY COMPARED TO ECG 05/28/2022 09:47:19 SECOND-DEGREE AV BLOCK IS NO LONGER PRESENT. Electronically Signed On 09-26-2022 8:30:50 CDT by Leydi Estrada M.D.
--- NOTE | 2022-09-25 18:45 | PC.NURSE ---
Pt daughter at bedside. Daughter states pt is normally a&o x4 and they were going to take her off of hospice care because she was doing so well. Daughter states pt was in her normal state x2 days ago. Daughter says the pt has a respiratory hx and has been intubated x2-3 times in the past year.
[2022-09-25 18:47] LABS: Basophils Percent Auto 0.4 % (0.2-1.2); Eosinophils Absolute Auto 0.1 K/mm3 (0-0.3); Eosinophils Percent Auto 2.4 % (0-4.4); Hematocrit 26.8 % (37.0-47.0); Hemoglobin 8.6 g/dL (12.0-15.0); Immature Granulocyte Absolute 0.01 K/mm3 (0.00-0.031); Immature Granulocyte Percent A 0.2 % (0-0.5); Lymphocytes Percent Auto 32.9 % (18.3-44.2); Mean Corpuscular HGB Conc 32.1 g/dl (32-36); Mean Corpuscular Hemoglobin 25.4 pg (26-34); Mean Corpuscular Volume 79.3 fl (80-100); Mean Platelet Volume 11.4 fl (7.4-10.4); Monocytes Absolute Auto 0.4 K/mm3 (0.1-0.6); Monocytes Percent Auto 9.6 % (2.6-8.5); Neutrophils Absolute Auto 2.5 K/mm3 (1.3-6.7); Neutrophils Percent Auto 54.5 % (45.5-73.1); Platelet Count Result 144 k/mm3 (150-375); Red Blood Count 3.38 M/mm3 (4.2-5.4); Red Cell Distribution Width 16.2 % (11.5-14.5); White Blood Count 4.6 K/mm3 (4.5-10.0)
--- NOTE | 2022-09-25 18:47 | PC.NURSE ---
Hospice nurse called regarding pt. Updated her with info we have at this time. She would like us to call her back with any updates. Cristiane: [phone].
[2022-09-25 18:59] LABS: Alanine Aminotransferase 50 U/L (6-35); Albumin Level 4.3 g/dL (3.5-5.1); Alkaline Phosphatase 180 U/L (38-126); Anion Gap 11 mmol/L (8-16); Aspartate Amino Transferase 73 U/L (14-36); Bilirubin,Total 0.3 mg/dL (0.2-1.3); Blood Urea Nitrogen 65 mg/dL (7-17); Calcium 8.3 mg/dL (8.4-10.2); Carbon Dioxide 27 mmol/L (22-30); Chloride 106 mmol/L (98-107); Estimated CRCL calculation 15 ml/min; Estimated Glomerular Filt Rate 21; Glucose 130 mg/dL (65-110); Potassium 5.1 mmol/L (3.4-5.0); Sodium 144 mmol/L (137-145)
--- NOTE | 2022-09-25 19:36 | ED.RECABL ---
HPI - Recheck/Abnormal Lab/Rx General Chief Complaint: Shortness of Breath/Dyspnea <Veronica Queen PA-C - Last Filed: 09/25/22 21:25> Stated Complaint: low o2 <Veronica Queen PA-C - Last Filed: 09/25/22 21:25> Time Seen by Provider: 09/25/22 18:51 <Veronica Queen PA-C - Last Filed: 09/25/22 21:25> History of Present Illness HPI narrative: 86-year-old female with history of respiratory failure with hypoxia and hypercapnia, GERD, hypertension, type 2 diabetes, CKD, hyperkalemia, COPD, CHF reports for evaluation via EMS from [facility] for dyspnea and wheezing. Patient's daughter and POA is present at bedside who assist with history. The patient was hospitalized in May for pneumonia and GI bleed was transferred to [facility] for pulmonary and GI consult. During her admission, her course was complicated after she aspirated and had to be placed on a ventilator. She was on oxygen for approximately 1 month after her admission and has since been off of oxygen and doing significantly better. She was placed on hospice care at that time. Per the daughter, the patient has had increased auditory wheezing for the past week. States the [facility] care facility contacted the daughter while the patient was on her way to the ED today and states they transferred the patient to the hospital because her oxygen saturations dropped to the 80s. The daughter denies known fever, abdominal pain, nausea or vomiting or other complaints. The patient is alert and is reporting shortness of breath sometimes , denies chest pain, abdominal pain, nausea or vomiting, fever. Patient was placed on 2 and half liters of oxygen via nasal cannula by EMS and arrives satting 100%. Oxygen removed upon arrival and patient remained satting 97 to 100%. <Veronica Queen PA-C - Last Filed: 09/25/22 21:25> Related Data Home Medications: Home Medications Medication Instructions Recorded Confirmed budesonide-formoterol HFA 160 2 puff inhalation BID 01/22/22 06/17/22 mcg-4.5 mcg/actuation aerosol inhaler (Symbicort) cholecalciferol (vitamin D3) 25 25 mcg PO DAILY 01/22/22 06/17/22 mcg (1,000 unit) tablet dextromethorphan-guaifenesin 30 1 tablet PO Q12H PRN Cough 01/22/22 06/17/22 mg-600 mg tablet extended [id number] hr (Mucinex DM) hydralazine 25 mg tablet 75 mg PO TID 01/22/22 06/17/22 insulin detemir U-100 100 unit/mL 5 unit subcut HS 01/22/22 06/17/22 (3 mL) subcutaneous pen (Levemir FlexTouch U-100 Insulin) ipratropium 0.5 mg-albuterol 3 mg 3 ml inhalation QID PRN shortness 01/22/22 06/17/22 (2.5 mg base)/3 mL nebulization of breath soln ondansetron 4 mg disintegrating 4 mg PO Q8H PRN Nausea 01/22/22 06/17/22 tablet pantoprazole 40 mg tablet,delayed 40 mg PO DAILY 01/22/22 06/17/22 release polyethylene glycol 3350 17 17 g PO DAILY 01/22/22 06/17/22 gram/dose oral powder potassium chloride 20 mEq 20 meq PO DAILY 01/22/22 06/17/22 tablet,extended release(part/cryst) <Veronica Queen PA-C - Last Filed: 09/25/22 21:25> Allergies/Adverse Reactions: Allergies Allergy/AdvReac Type Severity Reaction Status Date / Time No Known Allergies Allergy Verified 01/23/22 14:58 <Veronica Queen PA-C - Last Filed: 09/25/22 21:25> Review of Systems Review of Systems: CONSTITUTIONAL: Denies fever, chills EYES: Denies visual changes, redness, or discharge. ENT: Denies rhinorrhea, congestion, sore throat, or otalgia. CARDIOVASCULAR: Denies chest pain, palpitations, or edema. RESPIRATORY: See HPI GASTROINTESTINAL: Denies abdominal pain, nausea, vomiting, or diarrhea. GENITOURINARY: Denies dysuria or hematuria. SKIN: Denies rash or itching. MUSCULOSKELETAL: Denies back pain, joint pain, or myalgia. NEUROLOGIC: Denies headache, numbness, dizziness, or weakness. PSYCHIATRIC: Denies anxiety or depression. <Veronica Queen PA-C - Last Filed: 09/25/22 21:25> [facility] Past Medical History Medi
[2022-09-25] MEDS: ALBUTEROL SULFATE NEB 2.5 MG/3 ML INH INHALATION (19:51)
[2022-09-25] MEDS: IPRATROPIUM BR 0.02% INH SOLN 0.5 MG/2.5 ML VIAL INHALATION (19:51)
[2022-09-25] MEDS: methylPREDNISolone SOD SUCC 125 MG VIAL IV PUSH (20:23)
[2022-09-25] MEDS: MAGNESIUM SULF 2 GM/WATER 50ML 2 GM/50 ML BAG IVPB (20:23)
[2022-09-26] VITALS (46 sets, daily range): BP systolic 129–146; BP diastolic 58–121; PULSE 63–90; RESP 13–33; O2SAT 93–95
--- NOTE | 2022-09-26 02:17 | PC.NURSE ---
Patient care report called to ALEE Downey at [facility]. All questions answered at this time and EMS called for transport back to [facility], estimated ETA for ambulance is 0500.
--- NOTE | 2022-09-26 05:25 | PC.NURSE ---
Patient wet depends changed and fresh depend place on patient. Patient changed back into her pajamas, monitoring equipment removed, and IV removed. Patient's daughter is going to try to take patient back to [facility] herself since EMS is taking so long, new updated EMS eta is 0630 so daughter wants to take her back herself.
--- NOTE | 2022-09-26 05:40 | PC.NURSE ---
RETURN TRANSPORT TIMELINE TO [place]: 2116: [facility], [facility] BLS on tonight, leaving for a transport to [place]...several hours. 2117: [facility], accepted, (#[id number]). ETA 0100. 2137: [facility], declined. 2138: [facility], declined. 2351: [facility] called, pushed transport back to 0500. 0506: Called [facility], pushed transport back to 0630 pending 911 calls . 0508: Called [facility], N/A for several hours. Still on [place] trip. 0510: Called [facility], N/A. 0538: Cancelled [facility]. Family member was at bedside, called other family members to assist in returning patient to facility by private vehicle. Family called [facility] to make sure that staff was aware she was coming by private vehicle and could assist them in getting patient to room.
== END 2022-09-26 06:02 | disposition hospice, home (50) ==
PROVIDERS: Emergency Medicine; Emergency Provider Physician Assistant; PCP Family Medicine
DX: J44.1 Chronic obstructive pulmonary disease with (acute) exacerbation (principal); E11.22 Type 2 diabetes mellitus with diabetic chronic kidney disease; I13.0 Hypertensive heart and chronic kidney disease with heart failure and stage 1 through stage 4 chronic kidney disease, or unspecified chronic kidney disease; N18.9 Chronic kidney disease, unspecified; I50.9 Heart failure, unspecified; K21.9 Gastro-esophageal reflux disease without esophagitis; Z66 Do not resuscitate; Z87.01 Personal history of pneumonia (recurrent); Z79.4 Long term (current) use of insulin; I44.0 Atrioventricular block, first degree; I45.9 Conduction disorder, unspecified; R94.31 Abnormal electrocardiogram [ECG] [EKG]; M48.54XA Collapsed vertebra, not elsewhere classified, thoracic region, initial encounter for fracture
CPT/HCPCS: 36415; 71046; 80053; 85025; 93005; 94640; 96365; 96375; 99284; J2930; J3475